=== PATIENT | female | born 1975 | race Caucasian/White ===

== ENCOUNTER → 2019-08-30 12:00 | Outpatient (BNVA) | payer SELFPAY | PROVIDERS: Family Provider Family Medicine; PCP Family Medicine; Visit Provider Nurse Practitioner Family | DX: Z01.89 Encounter for other specified special examinations (principal) | CPT/HCPCS: 87493 ==

== ENCOUNTER → 2019-09-06 10:44 | Outpatient (BNVA) | payer SELFPAY | PROVIDERS: Family Provider Family Medicine; PCP Family Medicine; Visit Provider Anesthesiology | DX: G89.29 Other chronic pain (principal); M54.2 Cervicalgia; M25.512 Pain in left shoulder; M25.551 Pain in right hip; M25.552 Pain in left hip; G43.709 Chronic migraine without aura, not intractable, without status migrainosus; F33.1 Major depressive disorder, recurrent, moderate; F41.1 Generalized anxiety disorder; Z79.891 Long term (current) use of opiate analgesic | CPT/HCPCS: 73620; 73630; 99214 ==

== ENCOUNTER 2019-09-19 12:37 | Outpatient (CLI) | payer SELFPAY ==
--- NOTE | 2019-09-19 13:00 | CT_ITS ---
WS: [id number] NONCONTRAST CT OF THE RIGHT FOOT TECHNIQUE: CT right foot with coronal and sagittal reformatted images. CLINICAL INFORMATION: LISFRANC DISLOCATION COMPARISON: None. DLP: [address] scans at [facility] use at least one of these dose optimization techniques: automat ed exposure control; mA and/or kV adjustment per patient size (includes targeted exams where dose is matched to clinical indication); or iterative reconstruction. FINDINGS: Small avulsion at the base of the first metatarsal. Additional nondisplaced fracture involving the ba se of the second metatarsal. Slightly comminuted fractures involving the medial cuneiform and interme diate cuneiform at the articulation. Lisfranc fracture dislocation with slight lateral subluxation of the second metatarsal relative to the intermediate cuneiform. Normal talus and calcaneus. Normal tibiotalar joint. Plantar calcaneal spurring. No other visualized fractures. CT/CT foot RT wo con* [id number] IMPRESSION: 1. Lisfranc fracture dislocation with slight lateral subluxation of the second metatarsal relative to the intermediate cuneiform. 2. Small avulsions at the base of the first and second metatarsals. 3. Comminuted fractures involving the medial cuneiform and intermediate cuneif orm at the articulation.
== END 2019-09-19 12:38 | disposition home or self-care (01) ==
LOC: RADWPI 12:40
PROVIDERS: Family Provider Family Medicine; PCP Family Medicine; Visit Provider Orthopaedic Surgery
DX: S92.311A Displaced fracture of first metatarsal bone, right foot, initial encounter for closed fracture (principal); S92.321A Displaced fracture of second metatarsal bone, right foot, initial encounter for closed fracture; X58.XXXA Exposure to other specified factors, initial encounter
CPT/HCPCS: 73700

== ENCOUNTER → 2019-10-25 09:56 | Outpatient (BNVA) | payer OTHER, SELFPAY | PROVIDERS: Family Provider Family Medicine; PCP Family Medicine; Visit Provider Orthopaedic Surgery | DX: S92.231A Displaced fracture of intermediate cuneiform of right foot, initial encounter for closed fracture (principal); X58.XXXA Exposure to other specified factors, initial encounter; M77.31 Calcaneal spur, right foot | CPT/HCPCS: 73630 ==

== ENCOUNTER → 2019-10-31 11:43 | Outpatient (BNVA) | payer OTHER, SELFPAY | PROVIDERS: Family Provider Family Medicine; PCP Family Medicine; Visit Provider Podiatrist Foot & Ankle Surgery | DX: S92.241A Displaced fracture of medial cuneiform of right foot, initial encounter for closed fracture (principal); X58.XXXA Exposure to other specified factors, initial encounter | CPT/HCPCS: 73620 ==

== ENCOUNTER → 2019-11-03 09:50 | Outpatient (BNVA) | payer OTHER, SELFPAY | PROVIDERS: Family Provider Family Medicine; PCP Family Medicine; Visit Provider Nurse Practitioner | DX: M54.2 Cervicalgia (principal); G43.709 Chronic migraine without aura, not intractable, without status migrainosus; Z79.891 Long term (current) use of opiate analgesic | CPT/HCPCS: 99214 ==

== ENCOUNTER → 2019-12-30 09:20 | Outpatient (BNVA) | payer MEDICARE, MEDICAID, SELFPAY | PROVIDERS: Family Provider Family Medicine; PCP Family Medicine; Visit Provider Nurse Practitioner | DX: M54.2 Cervicalgia (principal); Z79.891 Long term (current) use of opiate analgesic | CPT/HCPCS: 73630; 99213 ==

== ENCOUNTER 2020-01-20 05:47 | Day surgery (SDC) | payer MEDICARE, MEDICAID, SELFPAY ==
[2020-01-19 13:21] VITALS: BMI 44.2
[2020-01-20] VITALS (13 sets, daily range): BP systolic 104–167; BP diastolic 65–109; PULSE 70–82; RESP 12–18; TEMP 36.3–36.9; O2SAT 93–100
--- NOTE | 2020-01-20 | SCC_ITS ---
Procedure Done: Lapidus arthrodesis right footCPT code 05597. Second tarsometatarsal arthrodesis right foot CPT code 42374. 13 seconds of fluoroscopic guidance, for a cumulative dose of 0.3 mGy, was provided to Dr. Durant by the radiology department. C-arm images of the RIGHT foot were saved for the patient's permanent record. [facility]
--- NOTE | 2020-01-20 06:25 | P.HPUD_ITS ---
Surgery/Procedure H&P Update DATE OF PROCEDURE: January 20, 2020 DATE H&P PERFORMED: 12/30/19 H&P UPDATE INFORMATION: I have reviewed H&P completed within last 30 days, I have examined patient prior to procedure, No changes to prior documentation and [place] [facility] [place] PREOP DIAGNOSIS: Right Lisfranc dislocation PLANNED PROCEDURE: Operation Date: 01/20/20 07:00 Proposed Procedures p right first metatarsal cuneiform joint arthrodesis(61004)right tarsal metatarsal arthrodesis (65971)(Right) - Darvin Durant DPM
[2020-01-20] MEDS: sodium chloride 0.9% 1,000 ML 30 ML IV (06:31)
--- NOTE | 2020-01-20 06:37 | ANES.PREANE2 ---
Pre-Anesthetic Assessment Pre-Anesthetic Assessment: Height/Weight: Height 1.6 m Weight 113.398 kg Temp Pulse Resp BP Pulse Ox 98.2 F 76 18 129/78 95 01/20/20 06:00 01/20/20 06:00 01/20/20 06:00 01/20/20 06:00 01/20/20 06:00 Preop Diagnosis: Right Lisfranc dislocation Proposed Procedure: Operation Date: 01/20/20 07:00 Proposed Procedures p right first metatarsal cuneiform joint arthrodesis(42769)right tarsal metatarsal arthrodesis (57396)(Right) - Darvin Durant DPM Last intake: Intake Last Liquid Date 01/19/20 Last Liquid Time 17:00 Last Solid Date 01/19/20 Last Solid Time 20:00 Social: Social History: No alcohol and No tobacco Exam: Pre-Anes Outpt Exam: alert, oriented x 3, clear to auscultation bilaterally and regular rate & rhythm Airway: Submandibular: WNL Cervical ROM: WNL MP: 1 Dentition: Other (teeth ok) History/ROS: No significant history except as noted Pulmonary: Pulmonary: VELASQUEZ and Sleep apnea CV/HEM: CV/HEM: Arrythmia (ST) and HTN Comments: POTS : : None reported Hepatic: Comments: fatty liver GI: GI: GERD (not well controlled) Metabolic: Metabolic: DM and Morbid obesity Musc/skel: Musc/skel: OA/DJD Neuropsych: Neuropsych: Anxiety and Depression Anesthetic Plan: ASA status: 3 Anesthesia: Anesthesia Evaluation and MAC Risk of > 500 ml blood loss (7ml/kg in children): No Meds/Allergies Current Medications: Current Medications Generic Name Dose Route Start Last Admin Trade Name Freq PRN Reason Stop Dose Admin Sodium Chloride 1,000 mls @ 30 ml s/hr 01/20/20 06:30 01/20/20 06:31 Sodium Chloride 0.9% IV 01/21/20 06:29 30 mls/hr .Q24H SHIRA Administration PFSH Anesthesia PFSH: Medical History Anxiety Chiari malformation Chronic migraine Chronic pain Diabetes mellitus Encounter for long-term use of opiate analgesic Generalized anxiety disorder Hip pain, bilateral Major depressive disorder, recurrent, moderate Neck pain Opioid contract exists TMJ (dislocation of temporomandibular joint) Surgical History S/P carpal tunnel release S/P section S/P cholecystectomy 02/09/2019 [place] teeth extracted Family History Father Hypertension Grandmother Family history of premature coronary artery disease Social History Smoking and tobacco status: never smoked Alcohol intake: never Data Anesthesia Cardiac Studies: No Data to Display
[2020-01-20] MEDS: sodium chloride 0.9% 1,000 ML 100 ML IV (06:40)
[2020-01-20 07:08] LABS: OR HCG Qualitative Urine Negative (Negative)
--- NOTE | 2020-01-20 08:30 | SUR.OPER ---
Phoned via cell phone, gave update on progress of surgery
--- NOTE | 2020-01-20 09:09 | SUR.PHASEI ---
0906 PATIENT TO PACU AT THIS TIME FROM OR. ORAL AIRWAY IN PLACE. SPO2 95% ON SIMPLE MASK AT 8L. DRESSING CDI TO RIGHT FOOT WITH WALKING BOOT IN PLACE.
--- NOTE | 2020-01-20 09:14 | SUR.PHASEI ---
0914 ORAL AIRWAY REMOVED, SPO2 100% ON SIMPLE MASK AT 8L.
[2020-01-20] MEDS: fentaNYL 50 mcg/mL INJ 2mL IVP (09:23)
--- NOTE | 2020-01-20 09:29 | XRR_ITS ---
PROCEDURE INFORMATION: Exam: XR Right Foot Complete Exam date and time: 01/20/2020 9:51 AM Age: 44 years old Clinical indication: Device placement; Joint fixation hardware; Prior surgery; Surgery date: Post-operative (0-2 days); Additional info: Post op TECHNIQUE: Imaging protocol: XR Right foot. Views: 3 or more views. COMPARISON: CR XR foot RT min 3V* [id number] 12/30/2019 1:24 PM FINDINGS: Bones/joints: Fine bony detail is obscured by an overlying cast. Postoperative fusion of the 1st and 2nd tarsometatarsal joints are now present. The surgical hardware is in place and intact. There is no significant change in alignment from the preoperative exam. Mild separation of the proximal 1st and 2nd metatarsals is present. A large plantar calcaneal spur is noted. Soft tissues: Soft tissue swelling is noted. XR/XR foot RT min 3V* [id number] IMPRESSION: Postoperative changes as discussed above
--- NOTE | 2020-01-20 09:30 | P.OP_ITS ---
Operative Report Date of procedure: January 20, 2020 Pre-op Diagnosis: Right Lisfranc dislocation Post-op diagnosis: same Procedure Done: Lapidus arthrodesis right footCPT code 00280. Second tarsometatarsal arthrodesis right foot CPT code 87923. Implants: [place] 28 Lapidus plate, 3.5 millimeter screws, 4.0 headless compression screw, clover plate and 2.7 millimeter screws Specimens removed/disposition: None Pathology: none sent Surgeon: Darvin Durant D.P.M. Anesthesia: General Estimated blood loss: 5 mL Tourniquet time: See intraoperative documentation. IV fluids: None Urine output: None Complications: None Findings: Instability at the right first tarsometatarsal joints. Condition: stable Disposition: PACU Procedure: Under mild sedation the patient was brought to the operating room and placed on the operating table in supine position. A timeout was performed. Anesthesia was administered by the anesthesia service. Local anesthesia was injected by myself 30 cc of 0.5% Marcaine plain and a right ankle block fashion. Well-padded pneumatic tourniquet applied to the high calf right lower extremity. Right lower extremity was scrubbed, prepped and draped utilizing normal aseptic technique. Right foot was then examined a weighted with an Esmarch bandage and the tourniquet was inflated to 250 mmHg. Attention was directed to the right forefoot where a linear longitudinal incision was made medial and parallel to the extensor hallucis longus tendon at the level of the first metatarsal base and medial cuneiform articulation. Dissection was carried down through skin and subcutaneous tissue utilizing a combination of blunt and sharp technique. Care was taken to retract and preserve neurovascular tendinous structures. Bleeders were ligated and cauterized as necessary. A periosteal incision was made in the first metatarsal medial cuneiform joint was identified and freed of its soft tissue and capsular attachments. Joint was distracted utilizing Steinmann pins and intermittent self-retaining retractor, utilizing a power bur the distal articular surface of the medial cuneiform and the base of the first metatarsal were denuded of all articular surface this was flushed with saline solution. Subchondral drilling performed with a subchondral drill bit, self-retaining distractor and pins removed first metatarsal base was reduced and compressed at the arthrodesis site temporarily fixated with a 045 K wire. Next utilizing standard AO technique a 4.0 headless partially-threaded cannulated screw was inserted from dorsal distal to proximal medial with care not to cross the talonavicular joint. Placement was confirmed with intraoperative fluoroscopy and 3 planes noted to be excellent. Utilizing standard AO technique a locking plate was fixated at the dorsal medial aspect of the arthrodesis site utilizing a combination of locking and nonlocking screws with excellent bony apposition and compression noted placement confirmed with intraoperative fluoroscopy. This incision site was flushed with saline solution. Periosteal structures were reapproximated utilizing 2-0 Vicryl. Subcutaneous tissue reapproximated utilizing 4-0 Vicryl. Attention was then directed to the dorsum of the right foot where a linear longitudinal incision was made directly over the intermediate cuneiform and second metatarsal. Incision was approximately 10 cm in length performed with a #15 blade with dissection carried down through subcutaneous tissue utilizing sharp and blunt technique. Care was taken to retract and preserve neurovascular and tendinous structures. All bleeders were ligated and cauterized as necessary. The articulation of the second metatarsal base was identified there is fibrosing and excessive fibrotic tissue and instability appreciated. This was removed utilizing a bone rongure dorsally. Self-retaining distractor was Steinmann pins utilized to distract the second metatarsal intercuneiform joint which was then prepared with denuding of all articular surface and subchondral drilling with 2.0 wire pass drill bit. Joint was then compressed and a dorsal plate provided by Shanelle Disla was utilized with 2 screws proximal and the intercuneiform bone and 3 screws distal to the arthrodesis site and the second metatarsal with excellent bony apposition and compression noted positioning confirmed with intraoperative fluoroscopy noted to be excellent in all 3 planes. Stable construct appreciated at the first and second ray of the right foot. Dorsal incision was flushed with saline solution. Periosteum was reapproximated utilizing 2-0 Vicryl. Subcutaneous tissue reapproximated utilizing 4-0 Vicryl Exparel 10 cc expanded to 20 cc utilizing 0.5% Marcaine plain was injected per redevelopment manager recommendation and technique diffusely in a grid pattern at the level of the subcutaneous tissue on both incisions medially and laterally.Skin was then reapproximated utilizing 4-0 nylon in a running interlocking fashion. Incision site was dressed with Adaptic, sterile 4 x 4's, Unna boot, additional 4 x 4's, Kerlix and 4 and 6 inch Sam wrap. Cam boot was applied. Tourniquet was deflated and a prompt hyperemic response was noted to the distal digits of the right lower extremity. Patient tolerated the procedure well and was transferred to the PACU with vital signs stable and vascular status intact following a period of postoperative monitoring she will be discharged home. She is to remain strict nonweightbearing to the right foot. She is to elevate her right foot at all times while at rest. She is provided with pain medication and this is Percocet 10/325 mg to be taken judiciously as needed every 6 hours for pain. She does have a contract with pain management they were notified of the discontinuation of her hydrocodone for 2 weeks postoperatively for which I will manage with Percocet she will return to her baseline pain regimen within 2 weeks postop.
--- NOTE | 2020-01-20 09:52 | SUR.PHASEI ---
0949 PATIENT TO OPS AT THIS TIME. NO DISTRESS. RIGHT FOOT ELEVATED FOR COMFORT.
== END 2020-01-20 10:24 | disposition home or self-care (01) ==
PROVIDERS: PCP Family Medicine; Visit Provider Podiatrist Foot & Ankle Surgery
PROC: (CPT 28740; principal; 2020-01-20 07:00)
DX: S93.324A Dislocation of tarsometatarsal joint of right foot, initial encounter (principal); X58.XXXA Exposure to other specified factors, initial encounter; G47.30 Sleep apnea, unspecified; I10 Essential (primary) hypertension; E11.9 Type 2 diabetes mellitus without complications; E66.01 Morbid (severe) obesity due to excess calories; Z68.41 Body mass index [BMI] 40.0-44.9, adult; M19.90 Unspecified osteoarthritis, unspecified site; F41.9 Anxiety disorder, unspecified; F33.9 Major depressive disorder, recurrent, unspecified; Z79.891 Long term (current) use of opiate analgesic
CPT/HCPCS: 28297; 28615; 12345; 29580; 73630; 76000; 81025; 84703; C1713; C9290; J0330; J0690; J2001; J2250; J2405; J2704; J2710; J3010; J3490; J7030

== ENCOUNTER → 2020-02-02 15:11 | Outpatient (BNVA) | payer MEDICARE, MEDICAID, SELFPAY | PROVIDERS: PCP Family Medicine; Visit Provider Podiatrist Foot & Ankle Surgery | DX: Z98.890 Other specified postprocedural states (principal) | CPT/HCPCS: 73630 ==

== ENCOUNTER 2020-02-25 07:56 | Emergency (ER) | payer MEDICARE, MEDICAID, SELFPAY ==
[2020-02-25 07:57] VITALS: BMI 44.2
--- NOTE | 2020-02-25 08:00 | XRR_ITS ---
PROCEDURE INFORMATION: Exam: XR Chest, 1 View Exam date and time: 02/25/2020 8:01 AM Age: 44 years old Clinical indication: Pain; Other: Dyspnea / cough; Additional info: Dyspnea/cough TECHNIQUE: Imaging protocol: XR of the chest Views: 1 view. COMPARISON: CR Chest 1 [place] [id number] 12/21/2017 10:44 AM FINDINGS: Lungs: Unremarkable. No consolidation. Pleural space: Unremarkable. No pleural effusion. No pneumothorax. Heart/Mediastinum: Unremarkable. No cardiomegaly. Bones/joints: Unremarkable. XR/XR chest 1V portable [id number] IMPRESSION: No acute findings.
[2020-02-25 08:02] VITALS: BP 128/87; PULSE 89; RESP 20; TEMP 37.1; O2SAT 96
--- NOTE | 2020-02-25 08:10 | W.ED.ABDPA2 ---
HPI - Abdominal Pain General: Chief Complaint: Abdominal Pain Stated Complaint: RIGHT LOWER ABD PAIN Time Seen by Provider: 02/25/20 08:00 History of Present Illness: HPI narrative: 44 yo female present with abd pain. She is complaining of diarrhea with a fever of the right upper quadrant abdominal pain that radiates into the back and side. States it is better with pressure when she wears a heating pad. Is worse if she eats bland foods do seem to be tolerated better appetite is been poor. She has had this intermittently for 6 months or more it seems to flareup every few months she is previously had a cholecystectomy had talked about doing endoscopy on her she is in one time when she had it she had a CT done and was told she had diverticulitis. She has not seen gastroenterology in talking to her it does not sound like she has had an MRCP to evaluate for sphincter of Oddi disease. She denies any other symptoms at this time is not had any respiratory symptoms has not been any around anyone exposed to COVID that she is aware of. MD elicited complaint: abdominal pain Pertinent past history: diverticulitis and other (Previous cholecystectomy) Onset (ago): day(s) Pain Consistency: constant Location: RUQ (The nurses triage noted identifies right lower quadrant pain but when asked the patient to identify the pain localize it she refers to the right upper quadrant.) Severity: severe Quality: cramping Radiation: R flank Migration to: no migration Exacerbating factors: eating Relieving factors: medication and rest Context: recent surgery/procedure (Recent cholecystectomy within the last few years) and history of similar episodes Associated Symptoms: Reports anorexia, diarrhea, nausea, poor appetite and vomiting; Denies chills, fever(s), hematochezia, hematuria, hematemesis, fecal incontinence and melena Related Data: Date of Last Menstrual Period: 01/16/20 Review of Systems Const: Denies: fever(s), chills, body aches, change in appetite, fatigue or malaise ENMT: Denies: throat pain, ear or mastoid pain, nasal discharge or nasal congestion Card: Denies: chest pain, edema, dyspnea on exertion or orthopnea Resp: Denies: dyspnea, productive cough or non-productive cough GI: Reports: nausea, vomiting and diarrhea; Denies: hematemesis, fecal incontinence, hematochezia or melena : Denies: hematuria Skin/Breast: Denies: rash or pruritus PFSH ED PFSH: Medical History Anxiety Chiari malformation Chronic migraine Chronic pain Diabetes mellitus Encounter for long-term use of opiate analgesic Generalized anxiety disorder Hip pain, bilateral Major depressive disorder, recurrent, moderate Neck pain Opioid contract exists TMJ (dislocation of temporomandibular joint) Surgical History S/P carpal tunnel release S/P section S/P cholecystectomy 02/09/2019 [place] teeth extracted Family History Father Hypertension Grandmother Family history of premature coronary artery disease Social History Smoking and tobacco status: never smoked Alcohol intake: never Female Reproductive History: Date of last menstrual period: 01/16/20 Physical Exam Const: COMMON NORMALS: no acute distress GENERAL APPEARANCE: cooperative and comfortable ORIENTATION/CONSCIOUSNESS: Yes awake, Yes oriented to person, Yes oriented to place and Yes oriented to time HENMT: COMMON NORMALS: normocephalic, atraumatic, hearing grossly normal bilaterally, external ears normal, EAC's normal, TM's normal bilaterally, Normal nasal mucous membranes and turbinates present, moist oral mucous membranes and oropharynx normal HEAD & SCALP: normocephalic and atraumatic NOSE: Normal nasal mucous membranes and turbinates present EXTERNAL EAR: Yes external ears normal EXTERNAL AUDITORY CANAL: EAC's normal TYMPANIC MEMBRANE: TM's normal bilaterally Eye: COMMON NORMALS: Equal, round and reactive pupils present, EOMs intact bilaterally, conjunctivae normal and no scleral icterus CONJUNCTIVA: Yes conjunctivae normal PUPIL: Yes Equal, round and reactive pupils present Neck/C-Spine: COMMON NORMALS: full ROM, no lymphadenopathy, supple and no JVD Lymph: LYMPHATIC: no lymphadenopathy noted and no lymphedema noted Resp: COMMON NORMALS: normal respiratory effort, No retractions, No use of accessory muscles and clear to auscultation bilaterally AUSCULTATION: clear to auscultation bilaterally Cardio: COMMON NORMALS: no JVD, regular rate, regular rhythm and No murmurs present (Cardio) RATE: regular rate RHYTHM: regular rhythm GI: COMMON NORMALS: No hepatosplenomegaly present AUSCULTATION: Yes normoactive bowel sounds PALPATION: Yes Tenderness to palpation present (GI) Details: RUQ, No Guarding due to palpation present (GI) and Yes No hepatosplenomegaly present Extremity: COMMON NORMALS: normal to inspection, capillary refill normal, no clubbing, cyanosis or edema, no calf tenderness and no pedal edema Neuro: SENSORIUM/ORIENTATION: Yes oriented to person, Yes oriented to place and Yes oriented to time Skin: COMMON NORMALS: no rashes or lesions noted GENERAL SKIN EXAM: no rashes or lesions noted Course Vital Signs: Vital signs: Vital Signs Temperature 98.8 F 02/25/20 08:02 Pulse Rate 74 02/25/20 12:33 Respiratory Rate 20 H 02/25/20 08:02 Blood Pressure 103/77 02/25/20 12:33 Pulse Oximetry 99 02/25/20 12:33 MDM - Abdominal Pain MDM Narrative: Medical decision making narrative: I suspect she may have sphincter of Oddi disease she continues to have biliary-like colic symptoms despite having cholecystectomy. A cholecystectomy was based on abnormal HIDA scan. Discussed this with her she may need further imaging or evaluation. For now we will treat her symptoms bland diet 24 hours to 48 hours of clear liquid diet and then slowly advance follow-up with her primary care doctor Lab Data: Labs: Lab Results 02/25/20 02/25/20 02/25/20 Range/Units 08:45 08:45 08:45 WBC 4.9 (4.0-10.0) 10^3/ uL RBC 4.25 (4.1-5.3) 10^6/u L Hgb 12.1 (11.5-15.3) g/dL Hct 37.3 (37.0-47.0) % MCV 87.8 (81-99) fL MCH 28.5 (28.0-34.0) pg MCHC 32.4 (30.0-36.0) g/dL RDW 13.2 (12.1-15.1) % Plt Count 154 (130-400) 10^3/c mm MPV 10.9 H (7.4-10.4) fL Neut % (Auto) 57.7 % Lymph % (Auto) 33.2 % Nicol[place] % (Auto) 6.9 % Eos % (Auto) 1.2 % Baso % (Auto) 1.0 % Neut # (Auto) 2.9 (1.8-7.7) 10^3/u L Lymph # (Auto) 1.6 (0.8-4.8) 10^3/u L [place] # (Auto) 0.3 (0.2-0.9) 10^3/u L Eos # (Auto) 0.1 (0.0-0.8) 10^3/u L Baso # (Auto) 0.1 (0.0-0.1) 10^3/u L Nucleated RBC % (a uto) 0 % Nucleated RBCs # 0.0 /100WBC Sodium 135 L (136-145) mmol/L Potassium 4.0 (3.5-5.1) mmol/L Chloride 102 (98-107) mmol/L Carbon Dioxide 21 L (22-29) mmol/L Anion Gap 16.0 (5-19) BUN 9 (6-20) mg/dL Creatinine 0.8 (0.5-0.9) mg/dL GFR Calculation 77.6 L (90-130) mL/min Glucose 132 H (65-115) mg/dL Calculated Osmolal ity 278 L (285-295) mOsm/k g Lactate 1.9 (0.5-2.2) mmol/L Calcium 9.4 (8.5-10.5) mg/dL Total Bilirubin 0.2 (0.15-1.2) mg/dL AST 20 (0-32) U/L ALT 17 (0-33) U/L Alkaline Phosphata se 53 (35-105) IU/L Total Protein 7.3 (6.6-8.7) g/dL Albumin 4.4 (3.5-5.2) g/dL Globulin 2.9 (1.3-4.6) g/dL Lipase 52 (13-60) U/L Urine Color (Yellow) Urine Appearance (CLEAR) Urine pH (5-7) Ur Specific Gravit y (1.005-1.030) Urine Protein (Negative) Urine Glucose (UA) (Normal) Urine Ketones (Negative) Urine Blood (Negative) Urine Nitrate (Negative) Urine Bilirubin (NEGATIVE) Urine Urobilinogen (Negative) mg/dL Ur Leukocyte Dionne ase (Negative) 02/25/20 Range/Units 10:04 WBC (4.0-10.0) 10^3/ uL RBC (4.1-5.3) 10^6/u L Hgb (11.5-15.3) g/dL Hct (37.0-47.0) % MCV (81-99) fL MCH (28.0-34.0) pg MCHC (30.0-36.0) g/dL RDW (12.1-15.1) % Plt Count (130-400) 10^3/c mm MPV (7.4-10.4) fL Neut % (Auto) % Lymph % (Auto) % [place] % (Auto) % Eos % (Auto) % Baso % (Auto) % Neut # (Auto) (1.8-7.7) 10^3/u L Lymph # (Auto) (0.8-4.8) 10^3/u L [place] # (Auto) (0.2-0.9) 10^3/u L Eos # (Auto) (0.0-0.8) 10^3/u L Baso # (Auto) (0.0-0.1) 10^3/u L Nucleated RBC % (a uto) % Nucleated RBCs # /100WBC Sodium (136-145) mmol/L Potassium (3.5-5.1) mmol/L Chloride (98-107) mmol/L Carbon Dioxide (22-29) mmol/L Anion Gap (5-19) BUN (6-20) mg/dL Creatinine (0.5-0.9) mg/dL GFR Calculation (90-130) mL/min Glucose (65-115) mg/dL Calculated Osmolal ity (285-295) mOsm/k g Lactate (0.5-2.2) mmol/L Calcium (8.5-10.5) mg/dL Total Bilirubin (0.15-1.2) mg/dL AST (0-32) U/L ALT (0-33) U/L Alkaline Phosphata se (35-105) IU/L Total Protein (6.6-8.7) g/dL Albumin (3.5-5.2) g/dL Globulin (1.3-4.6) g/dL Lipase (13-60) U/L Urine Color Straw (Yellow) Urine Appearance Clear (CLEAR) Urine pH 5 (5-7) Ur Specific Gravit y 1.005 (1.005-1.030) Urine Protein Neg (Negative) Urine Glucose (UA) Norm (Normal) Urine Ketones Negative (Negative) Urine Blood Neg (Negative) Urine Nitrate Negative (Negative) Urine Bilirubin Neg (NEGATIVE) Urine Urobilinogen Norm (Negative) mg/dL Ur Leukocyte Dionne ase Negative (Negative) Discharge Plan Discharge Patient Disposition: Home, Self-Care Clinical Impression: Abdominal pain Condition: Stable Prescriptions: New hydrocodone-acetaminophen 5-325 mg tablet 1 tab PO Q6H PRN (Reason: pain) Qty: 20 RF: 0 Zofran 4 mg tablet 4 mg PO Q6H PRN (Reason: nausea and vomiting) Qty: 20 RF: 0 No Action buspirone 15 mg tablet 15 mg PO BID PRN (Reason: anxiety) 30 Days Qty: 60 RF: 1 gabapentin 800 mg tablet 800 mg PO Q6H 30 Days Qty: 120 RF: 1 cyclobenzaprine 10 mg tablet 20 mg PO BID PRN (Reason: muscle spasm) Qty: 120 RF: 4 morphine 15 mg tablet extended release 15 mg PO Q12H 30 Days Qty: 60 RF: 0 metoprolol succinate 50 mg tablet extended release 24 hr 50 mg PO BID RF: 0 nystatin 100,000 unit/gram cream 1 applic TOPICAL BID RF: 0 rizatriptan 10 mg tablet 10 mg PO DAILY PRN (Reason: Migraine Headache) RF: 0 cranberry extract 200 mg capsule 200 mg PO DAILY RF: 0 acetaminophen 500 mg capsule 500 mg PO Q4H PRN (Reason: Pain) RF: 0 chlorpheniramine maleate [Allergy (chlorpheniramine)] 4 mg tablet 4 mg PO DAILY RF: 0 melatonin 3 mg capsule 3 mg PO BEDTIME PRN (Reason: Insomnia) RF: 0 ondansetron HCl 4 mg tablet 4 mg PO Q6H PRN (Reason: Nausea) RF: 0 sertraline 100 mg tablet 200 mg PO BEDTIME RF: 0 Wellbutrin XL 300 mg tablet extended release 24 hr 300 mg PO QPM RF: 0 hydrocodone-acetaminophen 10-325 mg Tablet 1 tab PO Q6H PRN (Reason: Pain) RF: 0 Discharge Orders: Discharge Order (Routine); Ordered 02/25/20 Ordered By: Albert Ivey Patient Instructions: Abdominal Pain (ED) Activity Restrictions/Additional Instructions: Follow-up with your primary care doctor for further evaluation including ERCP or MRCP or consult with GI may be warranted. Can return if you have worsening symptoms. Discharge Date/Time: 02/25/20 12:33 Coding Level of Care Code ED Promotions Assistant for Chg Fwd Exam Comprehensive
--- NOTE | 2020-02-25 08:15 | CTR_ITS ---
PROCEDURE INFORMATION: Exam: CT Abdomen And Pelvis With Contrast Exam date and time: 02/25/2020 8:16 AM Age: 44 years old Clinical indication: Abdominal pain; Acute; Prior surgery; Surgery date: 6+ months; Surgery type: Gb; Patient HX: RT lower abd pain x 1 wk TECHNIQUE: Imaging protocol: Computed tomography of the abdomen and pelvis with intravenous contrast. Radiation optimization: All CT scans at this facility use at least one of these dose optimization techniques: automated exposure control; mA and/or kV adjustment per patient size (includes targeted exams where dose is matched to clinical indication); or iterative reconstruction. Contrast material: OMNI; Contrast volume: 95 ml; Contrast route: INTRAVENOUS (IV); COMPARISON: CT abdomen pelvis w con* [id number] 08/04/2019 7:23 AM RADIATION DOSE METRICS: Total DLP (mGy-cm): 1975.67 FINDINGS: Lungs: visualized portions of the lung bases normal. Liver: Normal. No mass. Gallbladder and bile ducts: Normal. No calcified stones. No ductal dilation. Pancreas: Normal. No ductal dilation. Spleen: Normal. No splenomegaly. Adrenals: Normal. No mass. Kidneys and ureters: Normal. No hydronephrosis. Stomach and bowel: Moderate amount stool within the large bowel. Appendix: No evidence of appendicitis. Intraperitoneal space: No free fluid within the pelvis or within the dependent portions of the peritoneum. Vasculature: Unremarkable. No abdominal aortic aneurysm. Lymph nodes: Unremarkable. No enlarged lymph nodes. Bladder: Unremarkable as visualized. Reproductive: Unremarkable as visualized. Bones/joints: osseous structures are unremarkable other than mild degenerative disk disease. No fracture. Soft tissues: Unremarkable. Other findings: No acute intra-abdominal process. No inflammatory process. No obstruction. CT/CT abdomen pelvis w con* [id number] IMPRESSION: 1. No acute intra-abdominal process. No inflammatory process. No obstruction. 2. No free fluid within the pelvis or within the dependent portions of the peritoneum. Radiation Dose CTDIVOL = (mGy): DLP = 1975.67 (mGy-cm)
[2020-02-25 08:36] VITALS: O2SAT 96
[2020-02-25] MEDS: morphine 4 mg/mL SDV 1 mL IVP (08:51)
[2020-02-25] MEDS: ondansetron 2 mg/ML SDV 2 mL 4 MG IVP (08:51)
[2020-02-25] MEDS: sodium chloride 0.9% 1,000 ML 999 ML IV (08:52)
[2020-02-25 09:05] LABS: Basophils # 0.1 10^3/uL (0.0-0.1); Eosinophils # 0.1 10^3/uL (0.0-0.8); Eosinophils % 1.2 %; Hematocrit 37.3 % (37.0-47.0); Hemoglobin 12.1 g/dL (11.5-15.3); Lymphocytes # 1.6 10^3/uL (0.8-4.8); Lymphocytes % 33.2 %; Mean Corpuscular HGB Conc 32.4 g/dL (30.0-36.0); Mean Corpuscular Hemoglobin 28.5 pg (28.0-34.0); Mean Corpuscular Volume 87.8 fL (81-99); Mean Platelet Volume 10.9 fL (7.4-10.4); Monocytes # 0.3 10^3/uL (0.2-0.9); Monocytes % 6.9 %; Neutrophils # 2.9 10^3/uL (1.8-7.7); Neutrophils % 57.7 %; Nucleated Red Blood Cells % 0 %; Platelet Count 154 10^3/cmm (130-400); Red Blood Count 4.25 10^6/uL (4.1-5.3); Red Cell Distribution Width 13.2 % (12.1-15.1); White Blood Count 4.9 10^3/uL (4.0-10.0)
--- NOTE | 2020-02-25 09:12 | PC.NURSE ---
pt to CT by stretcher with tech
[2020-02-25 09:26] LABS: Lactate (Lactic Acid level) 1.9 mmol/L (0.5-2.2)
[2020-02-25 09:27] LABS: Alanine Aminotransferase 17 U/L (0-33); Albumin Level 4.4 g/dL (3.5-5.2); Alkaline Phosphatase 53 IU/L (35-105); Aspartate Amino Transferase 20 U/L (0-32); Blood Urea Nitrogen 9 mg/dL (6-20); Calcium 9.4 mg/dL (8.5-10.5); Carbon Dioxide 21 mmol/L (22-29); Chloride 102 mmol/L (98-107); Creatinine Clr Calc Pharmacy 107.6655; Globulin 2.9 g/dL (1.3-4.6); Glomerular Filtration Rate 77.6 mL/min (90-130); Glucose 132 mg/dL (65-115); Lipase 52 U/L (13-60); Osmolality Calculated 278 mOsm/kg (285-295); Sodium 135 mmol/L (136-145); Total Bilirubin 0.2 mg/dL (0.15-1.2); Total Protein 7.3 g/dL (6.6-8.7)
[2020-02-25 10:00] VITALS: BP 109/79; PULSE 82; O2SAT 98
[2020-02-25 10:50] LABS: Add Urine Microscopic? NO
[2020-02-25 11:25] LABS: Bilirubin Urine Neg (NEGATIVE); Blood Urine Neg (Negative); Glucose Urine UA Norm (Normal); Ketones Urine Negative (Negative); Leukocyte Esterase Urine Negative (Negative); Nitrate Urine Negative (Negative); Protein Urine Neg (Negative); Specific Gravity, Urine 1.005 (1.005-1.030); Urine Appearance Clear (CLEAR); Urine Color Straw (Yellow); Urobilinogen Urine Norm (Negative); pH Urine 5 (5-7)
[2020-02-25 12:33] VITALS: BP 103/77; PULSE 74; O2SAT 99
[2020-02-25] MEDS: iohexol 300 mg/mL 100 mL Btl IV (12:53)
== END 2020-02-25 12:33 | disposition home or self-care (01) ==
PROVIDERS: Emergency Provider Family Medicine
DX: R10.9 Unspecified abdominal pain (principal); E11.9 Type 2 diabetes mellitus without complications
CPT/HCPCS: 12345; 71045; 74177; 80053; 81003; 83605; 83690; 85025; 96361; 96374; 96375; 99283; 99284; J2270; J2405; J7030; Q9967

== ENCOUNTER → 2020-02-27 10:05 | Outpatient (BNVA) | payer MEDICARE, MEDICAID, SELFPAY | PROVIDERS: Visit Provider Podiatrist Foot & Ankle Surgery | DX: Z98.1 Arthrodesis status (principal); M19.071 Primary osteoarthritis, right ankle and foot | CPT/HCPCS: 73630 ==

== ENCOUNTER → 2020-03-12 11:33 | Outpatient (BNVA) | payer MEDICARE, MEDICAID, SELFPAY | PROVIDERS: Visit Provider Podiatrist Foot & Ankle Surgery | DX: S93.324D Dislocation of tarsometatarsal joint of right foot, subsequent encounter; Z98.890 Other specified postprocedural states; W10.8XXD Fall (on) (from) other stairs and steps, subsequent encounter | CPT/HCPCS: 73630 ==

== ENCOUNTER → 2020-03-13 10:15 | Outpatient (BNVA) | payer MEDICARE, MEDICAID, SELFPAY | PROVIDERS: Family Provider Family Medicine; PCP Family Medicine; Visit Provider Anesthesiology | DX: G89.29 Other chronic pain (principal); M54.2 Cervicalgia; R10.11 Right upper quadrant pain; Z79.891 Long term (current) use of opiate analgesic | CPT/HCPCS: 99213; 99214 ==

== ENCOUNTER → 2020-03-16 07:56 | Outpatient (BNVA) | payer MEDICARE, MEDICAID, SELFPAY | PROVIDERS: Family Provider Family Medicine; PCP Family Medicine; Visit Provider Nurse Practitioner | DX: F33.1 Major depressive disorder, recurrent, moderate (principal); F41.1 Generalized anxiety disorder | CPT/HCPCS: 99213 ==

== ENCOUNTER → 2020-03-26 13:43 | Outpatient (BNVA) | payer MEDICARE, MEDICAID, SELFPAY | PROVIDERS: Family Provider Family Medicine; PCP Family Medicine; Visit Provider Podiatrist Foot & Ankle Surgery | DX: S93.324A Dislocation of tarsometatarsal joint of right foot, initial encounter (principal); Z48.89 Encounter for other specified surgical aftercare; X58.XXXA Exposure to other specified factors, initial encounter | CPT/HCPCS: 73630 ==

== ENCOUNTER → 2020-04-26 14:02 | Outpatient (BNVA) | payer MEDICARE, MEDICAID, SELFPAY | PROVIDERS: Family Provider Family Medicine; PCP Family Medicine; Visit Provider Nurse Practitioner Family | DX: J06.9 Acute upper respiratory infection, unspecified (principal); R05 Cough; Z20.818 Contact with and (suspected) exposure to other bacterial communicable diseases | CPT/HCPCS: 87635 ==

== ENCOUNTER 2020-05-03 09:35 | Emergency (ER) | payer MEDICARE, MEDICAID, SELFPAY ==
[2020-05-03] VITALS (49 sets, daily range): BP systolic 113–217; BP diastolic 74–117; PULSE 94–134; RESP 16–35; O2SAT 22–100; BMI 44.2
--- NOTE | 2020-05-03 09:51 | XR_ITS ---
WS: [id number] Portable AP semiupright chest, 05/03/2020 Clinical Data: dyspnea Comparison: Portable chest, 02/25/2020. Findings: No nodules, masses or effusions are seen. The heart is normal. The pulmonary vascularity is not increased. No pneumothorax is seen. A resuscitation paddle overlies the right chest obscuring d etail. Patchy peripheral opacities are seen. Monitor leads are on the chest wall. XR/XR chest 1V portable [id number] Impression: Patchy peripheral opacities which could represent pneumonia.
--- NOTE | 2020-05-03 09:51 | CT_ITS ---
WS: [id number] CTA OF THE CHEST WITH PULMONARY EMBOLISM PROTOCOL TECHNIQUE: High-resolution contrast enhanced CTA of the chest with coronal and sagittal reformatted i sharons with pulmonary embolism protocol. MIP images are also reviewed. CLINICAL INFORMATION: dyspnea, chest pain COMPARISON: None. DLP: 535.[address] scans at [facility] use at least one of these dose optimization techniques: automat ed exposure control; mA and/or kV adjustment per patient size (includes targeted exams where dose is matched to clinical indication); or iterative reconstruction. FINDINGS: Proximal main pulmonary arteries are normal. No evidence of pulmonary embolus. Segmental and subsegme ntal pulmonary arteries appear patent. No mediastinal or hilar lymphadenopathy. Normal thyroid gland. No axillary lymphadenopathy. Prior cholecystectomy. Diffuse bilateral groundglass infiltrates in a perihilar and subpleural distribution suspicious for v iral pneumonia. No focal consolidation or pleural fluid. Thoracic curve. CT/CT angio chest PE protcl [id number] IMPRESSION: 1. No evidence for pulmonary embolus. 2. Diffuse hazy groundglass infiltrates in a perihilar and subpleural distribu tion suspicious for viral pneumonia. 3. No mediastinal or hilar lymphadenopathy. 4. No significant pleural fluid. Attempted notification Albert Ivey DO at 05/03/2020 10:49 AM.
--- NOTE | 2020-05-03 09:53 | ECG_ITS ---
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 Measurements Intervals [place] Rate: 104 P: 35 NH: 184 QRS: 36 QRSD: 78 T: 3 QT: 370 QTc: 487 Interpretive Statements SINUS TACHYCARDIA POSSIBLE LEFT ATRIAL ENLARGEMENT [-0.1mV P WAVE IN V1/V2] LOW QRS VOLTAGE IN PRECORDIAL LEADS [QRS DEFLECTION < 1.0 mV IN CHEST LEADS] NONSPECIFIC ST & T-WAVE ABNORMALITY ABNORMAL RHYTHM ECG Compared to ECG 12/21/2017 13:50:55 Low QRS voltage now present Sinus rhythm no longer present Possible ischemia no longer present T-wave abnormality still present Electronically Signed On 05-03-2020 20:21:09 CDT by Kasey Bolivar M.D. [id number]
[2020-05-03 10:01] LABS: ABG PH Result 7.39 (7.35-7.45); Arterial Blood Gas Hematocrit 34.9 % (37-47); Blood Gas Allen Test Pos; Blood Gas Operator Identificat CAK; Blood Gas Sample Site Brachial, left; Blood Gas Sample Type Arterial; HCO3 ABG 21.6 mmol/L (22-26); PO2 ABG 62.6 mmHg (80.0-100.0)
[2020-05-03 10:02] LABS: Oxygen Device NC
[2020-05-03] MEDS: albuterol 8 gm MDI 2 PUFF INHALATION (10:17)
[2020-05-03] MEDS: iohexol 350 mg/mL 100 mL Btl IV (10:21)
--- NOTE | 2020-05-03 10:30 | ED_ITS ---
HPI - SOB/Dyspnea General: Chief Complaint: Shortness of Breath/Dyspnea Stated Complaint: ABDOMINAL PAIN/ COVID POSITIVE Time Seen by Provider: 05/03/20 09:51 History of Present Illness: HPI Narrative: 44-year-old female comes in she was tested positive for COVID last week and is now having increasing shortness of breath she has a history of previous PEs. She has diarrhea and severe myalgias including back pain. PE previously was provoked she was on anticoagulants for 6 months and then it was stopped. Associated symptoms: Reports fever(s), nausea and vomiting; Deny abdominal pain, chest pain or orthopnea Review of Systems Const: Reports: fever(s), chills, body aches, change in appetite, fatigue and malaise ENMT: Reports: nasal discharge and nasal congestion; Denies: throat pain or ear or mastoid pain Card: Denies: chest pain, edema, dyspnea on exertion or orthopnea Resp: Reports: dyspnea and non-productive cough; Denies: productive cough GI: Reports: nausea, vomiting, diarrhea and bloating; Denies: abdominal pain, hematemesis, coffee ground emesis, constipation, hematochezia or melena : Denies: flank pain, difficulty voiding, dysuria, urinary frequency or urinary urgency Skin/Breast: Denies: rash or pruritus PFSH ED PFSH: Medical History Anxiety Chiari malformation Chronic migraine Chronic pain Diabetes mellitus Encounter for long-term use of opiate analgesic Generalized anxiety disorder Hip pain, bilateral Major depressive disorder, recurrent, moderate Neck pain Opioid contract exists TMJ (dislocation of temporomandibular joint) Surgical History S/P carpal tunnel release S/P section S/P cholecystectomy 02/09/2019 [place] teeth extracted Family History Father Hypertension Grandmother Family history of premature coronary artery disease Social History Smoking and tobacco status: never smoked Alcohol intake: never History of recent travel: No Female Reproductive History: Date of last menstrual period: 01/16/20 Physical Exam Const: ORIENTATION/CONSCIOUSNESS: Yes awake HENMT: COMMON NORMALS: normocephalic HEAD & SCALP: normocephalic Neck/C-Spine: COMMON NORMALS: no JVD Resp: COMMON NORMALS: normal respiratory effort, No retractions, No use of accessory muscles and clear to auscultation bilaterally AUSCULTATION: clear to auscultation bilaterally Cardio: COMMON NORMALS: no JVD, regular rate, regular rhythm and No murmurs present (Cardio) RATE: regular rate RHYTHM: regular rhythm GI: COMMON NORMALS: Soft to palpation and No hepatosplenomegaly present AUSCULTATION: Yes normoactive bowel sounds PALPATION: Yes Soft to palpation, No Tenderness to palpation present (GI), No Guarding due to palpation present (GI) and Yes No hepatosplenomegaly present Extremity: COMMON NORMALS: normal to inspection, capillary refill normal, no clubbing, cyanosis or edema, no calf tenderness and no pedal edema Skin: COMMON NORMALS: no rashes or lesions noted GENERAL SKIN EXAM: no rashes or lesions noted Procedures Intubation Time out performed: Yes sedative: Etomidate paralytic: Succinylcholine Laryngoscope: fiber optic video scope Assist Device Used: fiber optic device ET Tube Size: 8.5 ET Tube Uncuffed: No Tube Secured Depth (cm): 24 Tube Placement Confirmation: visualized tube passing through cords, equal breath sounds bilaterally, no breath sounds over epigastrium and confirmation by capnometry Course Vital Signs: Vital signs: Vital Signs Pulse Rate 126 H 05/03/20 15:35 Respiratory Rate 16 05/03/20 15:35 Blood Pressure 160/99 05/03/20 15:35 Pulse Oximetry 100 05/03/20 15:45 MDM - SOB/Dyspnea MDM Narrative: Medical decision making narrative: Patient's breathing progressively worsened shortly after arrival to the point where she was barely maintaining sats on high flow oxygen she was going to require transferpatient was not able to sustain sats on high flow oxygen. She was going to require transfer to COVID unit at [facility] in [place] is decided it would be much safer and beneficial for the patient to intubate her. As she was progressively worsening to the point of achieving respiratory failure she was intubated after discussion with her she was agreeable expressed understanding of what we are asking. Intubated successfully first attempt without difficulty patient will be transferred to [facility] for COVID unit was given room does severe on Decadron here. Lab Data: Labs: Lab Results 05/03/20 05/03/20 05/03/20 Range/Units 09:50 10:20 10:20 WBC 3.1 L (4.0-10.0) 10^3/ uL RBC 3.95 L (4.1-5.3) 10^6/u L Hgb 10.9 L (11.5-15.3) g/dL Hct 35.2 L (37.0-47.0) % MCV 89.1 (81-99) fL MCH 27.6 L (28.0-34.0) pg MCHC 31.0 (30.0-36.0) g/dL RDW 14.3 (12.1-15.1) % Plt Count 92 L (130-400) 10^3/c mm MPV 11.1 H (7.4-10.4) fL Neut % (Auto) 83.1 % Lymph % (Auto) 14.0 % [place] % (Auto) 2.3 % Eos % (Auto) 0.3 % Baso % (Auto) 0.0 % Neut # (Auto) 2.55 (1.8-7.7) 10^3/u L Lymph # (Auto) 0.4 L (0.8-4.8) 10^3/u L [place] # (Auto) 0.1 L (0.2-0.9) 10^3/u L Eos # (Auto) 0.0 (0.0-0.8) 10^3/u L Baso # (Auto) 0.0 (0.0-0.1) 10^3/u L Nucleated RBC % (a uto) 0 % Nucleated RBCs # 0.0 /100WBC PT 12.60 (12.1-14.9) SECO NDS INR 0.92 (0.8-1.2) APTT 36.9 H (23.9-36.7) SECO NDS Fibrinogen 647 H (174-498) mg/dL D-Dimer 0.88 H (0-0.59) ug/mIFE U Specimen Type Arterial Sample Site Brachial, left ABG pH 7.39 (7.35-7.45) ABG pCO2 36.0 (35-45) mmHg ABG pO2 62.6 L (80.0-100.0) mmH g ABG HCO3 21.6 L (22-26) mmol/L ABG Base Excess -3.0 L (-2.0-2.0) mmol/ L Clint Test Pos Hematocrit 34.9 L (37-47) % O2 Delivery Device Nc O2 Liters/Min 12.0 % Senior Client Advisor ID Cak Sodium (136-145) mmol/L Potassium (3.5-5.1) mmol/L Chloride (98-107) mmol/L Carbon Dioxide (22-29) mmol/L Anion Gap (5-19) BUN (6-20) mg/dL Creatinine (0.5-0.9) mg/dL GFR Calculation (90-130) mL/min Glucose (65-115) mg/dL Calculated Osmolal ity (285-295) mOsm/k g Lactic Acid (0.5-2.2) mmol/L Calcium (8.5-10.5) mg/dL Ferritin (15-150) ng/mL Total Bilirubin (0.15-1.2) mg/dL AST (0-32) U/L ALT (0-33) U/L Alkaline Phosphata se (35-105) IU/L Lactate Dehydrogen ase (135-214) U/L Troponin T Gen 5 n g/L (0-10) ng/L C-Reactive Protein (0.0-4.9) mg/L Total Protein (6.6-8.7) g/dL Albumin (3.5-5.2) g/dL Globulin (1.3-4.6) g/dL Procalcitonin (0-0.5) ng/mL 05/03/20 05/03/20 05/03/20 Range/Units 10:20 10:20 10:57 WBC (4.0-10.0) 10^3/ uL RBC (4.1-5.3) 10^6/u L Hgb (11.5-15.3) g/dL Hct (37.0-47.0) % MCV (81-99) fL MCH (28.0-34.0) pg MCHC (30.0-36.0) g/dL RDW (12.1-15.1) % Plt Count (130-400) 10^3/c mm MPV (7.4-10.4) fL Neut % (Auto) % Lymph % (Auto) % [place] % (Auto) % Eos % (Auto) % Baso % (Auto) % Neut # (Auto) (1.8-7.7) 10^3/u L Lymph # (Auto) (0.8-4.8) 10^3/u L [place] # (Auto) (0.2-0.9) 10^3/u L Eos # (Auto) (0.0-0.8) 10^3/u L Baso # (Auto) (0.0-0.1) 10^3/u L Nucleated RBC % (a uto) % Nucleated RBCs # /100WBC PT (12.1-14.9) SECO NDS INR (0.8-1.2) APTT (23.9-36.7) SECO NDS Fibrinogen (174-498) mg/dL D-Dimer (0-0.59) ug/mIFE U Specimen Type Sample Site ABG pH (7.35-7.45) ABG pCO2 (35-45) mmHg ABG pO2 (80.0-100.0) mmH g ABG HCO3 (22-26) mmol/L ABG Base Excess (-2.0-2.0) mmol/ L Clint Test Hematocrit (37-47) % O2 Delivery Device O2 Liters/Min % Senior Client Advisor ID Sodium 137 (136-145) mmol/L Potassium 4.2 (3.5-5.1) mmol/L Chloride 104 (98-107) mmol/L Carbon Dioxide 21 L (22-29) mmol/L Anion Gap 16.2 (5-19) BUN 9 (6-20) mg/dL Creatinine 0.7 (0.5-0.9) mg/dL GFR Calculation 90.5 (90-130) mL/min Glucose 137 H (65-115) mg/dL Calculated Osmolal ity 282 L (285-295) mOsm/k g Lactic Acid 1.5 (0.5-2.2) mmol/L Calcium 7.5 L (8.5-10.5) mg/dL Ferritin 239 H (15-150) ng/mL Total Bilirubin 0.3 (0.15-1.2) mg/dL AST 46 H (0-32) U/L ALT 26 (0-33) U/L Alkaline Phosphata se 58 (35-105) IU/L Lactate Dehydrogen ase 483 H (135-214) U/L Troponin T Gen 5 n g/L 6 (0-10) ng/L C-Reactive Protein 107.8 H (0.0-4.9) mg/L Total Protein 6.6 (6.6-8.7) g/dL Albumin 3.8 (3.5-5.2) g/dL Globulin 2.8 (1.3-4.6) g/dL Procalcitonin 0.11 (0-0.5) ng/mL Critical Care Time Critical Care Time: Critical Care Time: Yes Total Critical Care Time: 45 Attestation: This case had a high probability of a clinically significant, sudden, or life threatening deterioration of this patient's condition which required my full and direct attention, intervention and personal management. Discharge Plan Discharge Patient Disposition: Xfer Other Referrals: Chano Renee DO [Primary Care Provider] - Discharge Date/Time: 05/03/20 16:00 Coding Level of Care Code ED Home Health Clinician for [facility] [place]
[2020-05-03] MEDS: morphine 4 mg/mL SDV 1 mL IVP (10:33)
[2020-05-03] MEDS: dexamethasone 4 mg/mL INJ 6 MG IVP (10:33)
[2020-05-03] MEDS: ondansetron 2 mg/ML SDV 2 mL 4 MG IVP (10:33)
[2020-05-03 10:34] LABS: Eosinophils % 0.3 %; Hematocrit 35.2 % (37.0-47.0); Hemoglobin 10.9 g/dL (11.5-15.3); Lymphocytes # 0.4 10^3/uL (0.8-4.8); Mean Corpuscular Hemoglobin 27.6 pg (28.0-34.0); Mean Corpuscular Volume 89.1 fL (81-99); Mean Platelet Volume 11.1 fL (7.4-10.4); Monocytes # 0.1 10^3/uL (0.2-0.9); Monocytes % 2.3 %; Neutrophils # 2.55 10^3/uL (1.8-7.7); Neutrophils % 83.1 %; Nucleated Red Blood Cells % 0 %; Platelet Count 92 10^3/cmm (130-400); Red Blood Count 3.95 10^6/uL (4.1-5.3); Red Cell Distribution Width 14.3 % (12.1-15.1); White Blood Count 3.1 10^3/uL (4.0-10.0)
[2020-05-03 10:42] LABS: INR 0.92 (0.8-1.2)
[2020-05-03 10:43] LABS: Fibrinogen 647 mg/dL (174-498); Partial Thromboplastin Time 36.9 SECONDS (23.9-36.7)
[2020-05-03 10:46] LABS: D Dimer 0.88 ug/mIFEU (0-0.59); Lactic Sepsis W/Reflex 1.5 mmol/L (0.5-2.2)
[2020-05-03 11:07] LABS: Slide Review Slide Review Perform
[2020-05-03 11:56] LABS: Procalcitonin 0.11 ng/mL (0-0.5)
[2020-05-03 12:07] LABS: Alanine Aminotransferase 26 U/L (0-33); Albumin Level 3.8 g/dL (3.5-5.2); Alkaline Phosphatase 58 IU/L (35-105); Anion Gap 16.2 (5-19); Aspartate Amino Transferase 46 U/L (0-32); Blood Urea Nitrogen 9 mg/dL (6-20); C Reactive Protein 107.8 mg/L (0.0-4.9); Calcium 7.5 mg/dL (8.5-10.5); Carbon Dioxide 21 mmol/L (22-29); Chloride 104 mmol/L (98-107); Ferritin 239 ng/mL (15-150); Globulin 2.8 g/dL (1.3-4.6); Glomerular Filtration Rate 90.5 mL/min (90-130); Glucose 137 mg/dL (65-115); Lactate Dehydrogenase 483 U/L (135-214); Osmolality Calculated 282 mOsm/kg (285-295); Potassium 4.2 mmol/L (3.5-5.1); Sodium 137 mmol/L (136-145); Total Bilirubin 0.3 mg/dL (0.15-1.2); Total Protein 6.6 g/dL (6.6-8.7)
[2020-05-03] MEDS: propofol 1,000 MG/100 ML INJ 4.8 MG IV (12:13)
[2020-05-03] MEDS: enoxaparin 120 mg/0.8 mL Syringe 110 MG SUBCUT (12:16)
[2020-05-03] MEDS: fentaNYL 50 mcg/mL INJ 2mL IVP (12:26)
[2020-05-03 12:29] LABS: Troponin T (5th) Once 6 ng/L (0-10)
[2020-05-03] MEDS: succinylcholine 20 mg/mL SDV 10mL 120 MG IVP (12:33)
[2020-05-03] MEDS: propofol 10 mg/mL SDV 20 mL 140 MG IVP (13:00)
--- NOTE | 2020-05-03 14:39 | XR_ITS ---
WS: [id number] Portable AP supine chest, 05/03/2020, 1445 hours Clinical Data: post intubation cxr Comparison: Portable chest, 05/03/2020 1040 hours. Findings: Endotracheal tube is above the ivelisse. There is an oral gastric tube which appears to end i n the stomach. The bilateral opacities in the lungs have increased. The patient is rotated. Monitor l lisette are on the chest wall. XR/XR chest 1V portable [id number] Impression: 1. Satisfactory position of oral gastric tube and endotracheal tube. 2. Worsening bilateral peripheral opacities which may represent worsening pneum onia.
--- NOTE | 2020-05-04 15:27 | PC.NURSE ---
Patient had OG placed per Lorie Bowser RN at the time of intubation.
--- NOTE | 2020-05-04 16:12 | PC.NURSE ---
OG inserted and cabral inserted at the time of intubation per verbal order of Dr. Ivey.
== END 2020-05-03 16:00 | disposition other institution (70) ==
PROVIDERS: Emergency Provider Family Medicine; PCP Family Medicine
DX: U07.1 COVID-19 (principal); E11.9 Type 2 diabetes mellitus without complications; Z86.711 Personal history of pulmonary embolism
CPT/HCPCS: 12345; 31500; 36600; 51702; 71045; 71275; 80053; 82728; 82803; 83605; 83615; 84145; 84484; 85025; 85378; 85384; 85610; 85730; 86140; 87040; 87070; 87205; 93005; 94002; 94640; 94799; 96365; 96366; 96367; 96368; 96372; 96375; 99285; 99291; J0330; J1100; J1650; J2250; J2270; J2405; J2704; J3010; J3490; J3535; Q9967

== ENCOUNTER 2020-05-15 21:13 | Inpatient (IN) | payer MEDICARE, MEDICAID, SELFPAY ==
[2020-05-15 21:32] VITALS: BMI 43.2
--- NOTE | 2020-05-15 21:33 | P.HP_ITS ---
Providers/Chief Complaint Admitting Physician: Vincent Jessica MD Primary Care Provider: Chano Renee DO Chief Complaint: Dysphagia/pneumonia History of Present Illness Carmen Hooper is a 44 year old female who contracted SARS COVID-19 and start of this month, was intubated on 05/03 in our ER and was transferred to [facility] because our VICU was on diversion. She got transferred to our hospital from [facility] to plan her disposition and evaluate deconditioning and dysphonia. Patient was positive for COVID on 04/27, presented to the [facility] ER, hypoxic requiring high flow oxygenation, before transferring her to the hospital in [place] she was intubated by Dr. Rodriguez. She stayed in viral ICU until today. She got dexamethasone, convalescent plasma, antiviral Remdesvir treatment over there, she was extubated on 05/07, since extubation she has been experiencing dysphonia, she has been getting feeds via NG tube, she was not requiring any oxygenation on discharge, ARDS/viral pneumonia resolved as per the imaging report from this facility. Medical records reviewed. She got transferred to our hospital around 9:30 PM on 05/15, at the time of evaluation patient is saturating well on room air, she is able to talk and eat, she is happy with the progress, no active complaints, no diarrhea, fever. She is endorsing generalized weakness, she is trying to restart her p.o. diet. Review of Systems Const: Reports: body aches, change in appetite, fatigue and malaise; Denies: fever(s) or chills Eyes: Denies: change in vision ENMT: Reports: throat pain Card: Denies: chest pain Resp: Denies: dyspnea GI: Denies: abdominal pain : Denies: flank pain Musc: Denies: neck pain Skin/Breast: Denies: rash Neuro: Denies: headache(s) Psych: Reports: anxiety Endo: Denies: polyuria Kanu/Lymph: Denies: easy bruising All/Imm: Denies: urticaria Medications/Allergies Home Medications Medication Instructions Recorded Confirmed Last Taken Type acetaminophen 500 mg capsule 500 mg PO Q4H PRN 09/05/19 05/03/20 01/19/20 History chlorpheniramine maleate 4 mg 4 mg PO DAILY tab 09/05/19 05/03/20 02/24/20 History tablet cranberry extract 200 mg capsule 200 mg PO DAILY 09/05/19 05/03/20 02/24/20 History nystatin 100,000 unit/gram topical 1 applic TOPICAL BID 09/05/19 05/03/20 01/19/20 History cream rizatriptan 10 mg tablet 10 mg PO DAILY PRN 09/05/19 05/03/20 01/19/20 History melatonin 3 mg capsule 6 mg PO BEDTIME PRN cap 09/06/19 05/03/20 01/19/20 History omeprazole 20 mg capsule,delayed 20 mg PO DAILY 03/05/20 05/03/20 Unknown History release buspirone 15 mg tablet 15 mg PO BID PRN 30 Days #60 tab 03/13/20 05/03/20 Unknown Rx cyclobenzaprine 10 mg tablet 20 mg PO BID PRN #120 tab 03/13/20 05/03/20 Unknown Rx gabapentin 800 mg tablet 800 mg PO Q6H 30 Days #120 tab 03/13/20 05/03/20 Unknown Rx morphine 15 mg tablet,extended 15 mg PO Q12H 30 Days #60 tab 03/13/20 05/03/20 Unknown Rx release bupropion HCl 300 mg 24 hr tablet, 300 mg PO QAM #30 tab 03/16/20 05/03/20 Unknown Rx extended release sertraline 100 mg tablet 200 mg PO DAILY #60 tab 03/16/20 05/03/20 Unknown Rx fluconazole 50 mg tablet 50 mg PO DAILY #1 tab 03/19/20 05/03/20 Unknown Rx ondansetron HCl 4 mg tablet See Rx Instructions .ROUTE 04/18/20 05/03/20 Unknown Rx .COMPLEX #30 unspecified hydrocodone 10 mg-acetaminophen 1 tab PO Q6H PRN 30 Days #120 tab 04/20/20 05/03/20 Unknown Rx 325 mg tablet azithromycin 250 mg tablet See Rx Instructions PO .COMPLEX #6 04/26/20 05/03/20 Unknown Rx tab albuterol sulfate 1 puff INHALATION QID PRN 05/03/20 05/03/20 Unknown History dexamethasone 2 mg PO TID 05/03/20 05/03/20 Unknown History metoprolol succinate 50 mg 50 mg PO BID #60 tab 05/04/20 Unknown Rx tablet,extended release 24 hr Allergies Allergy/AdvReac Type Severity Reaction Status Date / Time metoclopramide [From Reglan] Allergy shortness Verified 04/26/20 13:21 of breath promethazine [From Phenergan] Allergy shortness Verified 04/26/20 13:21 of breath PFSH Acute PFSH: Medical History (Updated 05/15/20 @ 22:22 by Kasey Sanchez MD) Anxiety Chiari malformation Chronic migraine Chronic pain Diabetes mellitus Diverticulitis Juvencio-Danlos syndrome Encounter for long-term use of opiate analgesic Generalized anxiety disorder Hip pain, bilateral Major depressive disorder, recurrent, moderate Neck pain Opioid contract exists Pneumonia due to COVID-19 virus TMJ (dislocation of temporomandibular joint) Surgical History (Updated 05/15/20 @ 22:22 by Kasey Sanchez MD) History of foot surgery S/P carpal tunnel release S/P section S/P cholecystectomy 02/09/2019 [place] teeth extracted Family History Father Hypertension Grandmother Family history of premature coronary artery disease Social History Smoking and tobacco status: never smoked Alcohol intake: never History of recent travel: No Female Reproductive History: Date of last menstrual period: 01/16/20 Physical Exam Narrative: EXAM NARRATIVE: Obese female currently laying comfortably in her bed Dysphonia noted Cushingoid features S1, S2 no tachycardia Abdomen soft, distended bowel sound present Low symmetry no edema gangrene ulcer No neurological deficit GCS 15 awake alert oriented x3 EOMI, PERRLA No acute respiratory distress Saturating well on room air She has a right-sided PICC line which was placed on 05/11 A&P Assessment and plan (1) Dysphonia: Status: Acute (2) Physical deconditioning: Status: Acute Additional A&P Information Dysphonia after extubation Patient stayed intubated for 4 days Was intubated at [facility] ER by Dr. Rodriguez, extubated on 05/07 Patient is feeding via nasogastric tube however she has resumed her p.o. diet, she is currently denying any aspiration or choking sensation Will get speech evaluation in the morning She will need speech rehab, outpatient ENT consult No active stridor, no acute respiratory distress I would not use steroids at this point Saturating well on room air, Physical deconditioning Patient stayed in viral ICU for 2 weeks We will get physical therapy evaluation in the morning Deconditioning secondary to prolonged ICU stay Postrecovery ARDS COVID-19 Chest x-ray showed resolution of viral pneumonia She received convalescent plasma, steroid, antiviral treatment Currently saturating well, no active respiratory distress Will repeat COVID antigen test Generalized anxiety disorder Would use bupropion and gabapentin for now, Diet: Clear liquid Speech evaluation in the morning Physical therapy evaluation in the morning Moderate insulin sliding scale for type 2 diabetes DVT prophylaxis Lovenox Kindly evaluate if we could remove her PICC line in the morning, Full code Attestations Medical Necessity Statement*: Anticipating discharge in less than 48 hours currently need speech and physical therapy evaluation, postrecovery COVID-19 ARDS Time Spent in Patient Care: (>than 50% of time spent in counselling and/or direct pt care on unit) . 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
[2020-05-15 22:28] VITALS: BP 143/102; PULSE 141; RESP 20; TEMP 36.7; O2SAT 95
--- NOTE | 2020-05-15 22:50 | PC.NURSE ---
REPORTED BP TO NURSE!
[2020-05-15 23:20] LABS: SARS Covid-2 Antigen Negative (Negative)
[2020-05-15] MEDS: gabapentin 400 mg Capsule 800 MG PO (23:23)
[2020-05-15] MEDS: enoxaparin 40 mg/0.4 mL Syringe SUBCUT (23:23)
[2020-05-16] VITALS (7 sets, daily range): BP systolic 114–139; BP diastolic 54–99; PULSE 69–112; RESP 16–20; TEMP 36.3–37; O2SAT 93–97
[2020-05-16 05:45] LABS: Basophils % 0.1 %; Eosinophils # 0.1 10^3/uL (0.0-0.8); Hematocrit 37.7 % (37.0-47.0); Hemoglobin 11.9 g/dL (11.5-15.3); Lymphocytes # 2.1 10^3/uL (0.8-4.8); Mean Corpuscular HGB Conc 31.6 g/dL (30.0-36.0); Mean Corpuscular Volume 88.7 fL (81-99); Mean Platelet Volume 11.5 fL (7.4-10.4); Neutrophils # 7.41 10^3/uL (1.8-7.7); Neutrophils % 69.2 %; Nucleated Red Blood Cells % 0 %; Platelet Count 256 10^3/cmm (130-400); Red Blood Count 4.25 10^6/uL (4.1-5.3); Red Cell Distribution Width 14.1 % (12.1-15.1); White Blood Count 10.7 10^3/uL (4.0-10.0)
[2020-05-16] MEDS: buPROPion XL (24 HR) 300 mg Tablet PO (06:25)
[2020-05-16 06:28] LABS: Anion Gap 15.5 (5-19); Blood Urea Nitrogen 24 mg/dL (6-20); Calcium 9.3 mg/dL (8.5-10.5); Carbon Dioxide 23 mmol/L (22-29); Chloride 100 mmol/L (98-107); Glomerular Filtration Rate 90.5 mL/min (90-130); Glucose 188 mg/dL (65-115); Osmolality Calculated 289 mOsm/kg (285-295); Potassium 3.5 mmol/L (3.5-5.1); Sodium 135 mmol/L (136-145); Thyroid Stimulating Hormone 3.07 uIU/mL (0.27-4.20)
[2020-05-16 06:50] LABS: Glucose Point of Care 170 mg/dL (70-110)
[2020-05-16] MEDS: gabapentin 400 mg Capsule 800 MG PO ×2 (09:10→21:20)
[2020-05-16] MEDS: pantoprazole DR 40 mg Tablet PO (09:10)
[2020-05-16] MEDS: metoprolol succinate ER (24 HR) 50 mg Tablet PO (09:10)
[2020-05-16] MEDS: nystatin cream 30 gm 1 APPLIC TOPICAL ×2 (09:12→17:09)
--- NOTE | 2020-05-16 10:26 | PM.PN ---
Subjective Subjective: Interval history: After transfer from [facility]. she Has been doing fine. NG tube has been removed. She is tolerating diet. She is saturating well on room air. Afebrile and hemodynamically stable. Vitals/I&O/Wt Last Vital Signs Temp 97.3 F L 05/16/20 09:31 Pulse 78 05/16/20 09:31 Resp 16 05/16/20 09:31 BP 126/78 05/16/20 09:31 Pulse Ox 96 05/16/20 09:31 05/15/20 05/16/20 05/16/20 22:59 06:59 14:59 Intake Total 240 / 240 Output Total 550 / 550 Balance -310 / -310 Weight last 48 hrs Weight 110.631 kg Weight 110.631 kg Physical Exam Narrative: EXAM NARRATIVE: EXAM NARRATIVE: Obese female currently laying comfortably in her bed Dysphonia noted Cushingoid features S1, S2 no tachycardia Abdomen soft, distended bowel sound present Low symmetry no edema gangrene ulcer No neurological deficit GCS 15 awake alert oriented x3 EOMI, PERRLA No acute respiratory distress Saturating well on room air Data : 05/16/20 05:36 05/16/20 15:21 A&P Assessment and plan (1) Dysphonia: Status: Acute (2) Physical deconditioning: Status: Acute Additional A&P Information Dysphonia after extubation Patient stayed intubated for 4 days Was intubated at [facility] ER by Dr. Rodriguez, extubated on 05/07 Patient is feeding via nasogastric tube however she has resumed her p.o. diet, she is currently denying any aspiration or choking sensation Will get speech evaluation in the morning She will need speech rehab, outpatient ENT consult No active stridor, no acute respiratory distress I would not use steroids at this point Saturating well on room air, Physical deconditioning Patient stayed in viral ICU for 2 weeks We will get physical therapy evaluation in the morning Deconditioning secondary to prolonged ICU stay Postrecovery ARDS COVID-19 Chest x-ray showed resolution of viral pneumonia She received convalescent plasma, steroid, antiviral treatment Currently saturating well, no active respiratory distress Will repeat COVID antigen test Generalized anxiety disorder Would use bupropion and gabapentin for now, Diet: Clear liquid Speech evaluation in the morning Physical therapy evaluation in the morning Moderate insulin sliding scale for type 2 diabetes DVT prophylaxis Lovenox Kindly evaluate if we could remove her PICC line in the morning, Full code Attestations Medical Necessity Statement*: Patient needs to be in hospital for management of post COVID syndrome. Coding Level of Care Code Acute Clinical Manager for Chelsey Magana Diagnoses Dysphonia R49.0 Physical deconditioning R53.81
[2020-05-16 10:57] LABS: Glucose Point of Care 227 mg/dL (70-110)
--- NOTE | 2020-05-16 12:55 | PC.SOCIAL ---
Patient was transferred back from [facility] as inpatient status to our facility. Dr Jessica completed Doc to Doc yesterday and accepted the patient. NIghttime provider admitted the patient since she arrived after 1900. Patient should have been placed as inpatient since she was a transfer from inpatient at [facility]. Verified with Director of JASSON Rios and discussed with Dr Jessica. Order given to enter order as inpatient from beginning since this would be appropriate. Verbal order entered.
--- NOTE | 2020-05-16 13:02 | PC.NURSE ---
NG TUBE NG TUBE REMOVED PER PHYSICIAN'S ORDERS. PT TOLERATED WELL.
[2020-05-16 15:55] LABS: Anion Gap 15.7 (5-19); Blood Urea Nitrogen 24 mg/dL (6-20); Calcium 9.4 mg/dL (8.5-10.5); Carbon Dioxide 24 mmol/L (22-29); Chloride 98 mmol/L (98-107); Glomerular Filtration Rate 90.5 mL/min (90-130); Glucose 140 mg/dL (65-115); Osmolality Calculated 284 mOsm/kg (285-295); Potassium 3.7 mmol/L (3.5-5.1); Sodium 134 mmol/L (136-145)
[2020-05-16 17:54] LABS: Glucose Point of Care 131 mg/dL (70-110)
[2020-05-16 21:02] LABS: Glucose Point of Care 138 mg/dL (70-110)
[2020-05-16] MEDS: enoxaparin 40 mg/0.4 mL Syringe SUBCUT (21:20)
[2020-05-17] MEDS: HYDROcodone-acetaminophen 10-325 mg Tablet 1 TAB PO (02:19)
[2020-05-17 03:00] VITALS: BP 121/85; PULSE 101; RESP 14; TEMP 36.9; O2SAT 96
[2020-05-17 06:25] LABS: Basophils % 0.1 %; Eosinophils # 0.1 10^3/uL (0.0-0.8); Eosinophils % 1.2 %; Hematocrit 38.8 % (37.0-47.0); Hemoglobin 11.9 g/dL (11.5-15.3); Lymphocytes # 2.5 10^3/uL (0.8-4.8); Lymphocytes % 26.7 %; Mean Corpuscular HGB Conc 30.7 g/dL (30.0-36.0); Mean Corpuscular Hemoglobin 27.8 pg (28.0-34.0); Mean Corpuscular Volume 90.7 fL (81-99); Monocytes % 10.7 %; Neutrophils # 5.57 10^3/uL (1.8-7.7); Neutrophils % 60.5 %; Nucleated Red Blood Cells % 0 %; Platelet Count 248 10^3/cmm (130-400); Red Blood Count 4.28 10^6/uL (4.1-5.3); Red Cell Distribution Width 14.4 % (12.1-15.1); White Blood Count 9.2 10^3/uL (4.0-10.0)
[2020-05-17] MEDS: buPROPion XL (24 HR) 300 mg Tablet PO (06:37)
[2020-05-17 07:00] VITALS: BP 134/90; PULSE 116; RESP 18; TEMP 36.6; O2SAT 100
[2020-05-17 07:01] LABS: Estmated Average Glucose 126
[2020-05-17 07:39] LABS: Glucose Point of Care 158 mg/dL (70-110)
[2020-05-17] MEDS: pantoprazole DR 40 mg Tablet PO (09:18)
[2020-05-17] MEDS: nystatin cream 30 gm 1 APPLIC TOPICAL (09:18)
[2020-05-17] MEDS: gabapentin 400 mg Capsule 800 MG PO (09:18)
[2020-05-17] MEDS: metoprolol succinate ER (24 HR) 50 mg Tablet PO (09:18)
--- NOTE | 2020-05-17 09:50 | PC.SOCIAL ---
Late Entry for 05/15/2020 0830. Call received this am by Park Activities Coordinator from [facility]. We discussed possible transferring this patient back from [facility] now that she is stable. We transferred her to [facility] from the ED on 05/03/2020. At time of call she was on the Telemetry Medical floor. She was on RA sats 97%. She does have NG tube in place due to Laryngeal Edema post intubation. She was evaluated by ENT there. Requested recent PN and Facesheet. Verified with [facility] that they have her on a regular floor and wearing PPE per CDC recommendations which include surgical mask and goggles. At the time of discussion patient was also on insulin drip but per CM report plan was to discontinue the drip. Discussed that the drip would need to be dc'd and patient stable off drip prior to our being able to accept due to no ICU beds available currently. Later in the afternoon called by CM and discussed patient doing well off Insulin Drip. Doc to Doc set up with our physician Dr Jessica and had Dr Jessica review progress note in advance. Dr Jessica accepted patient in transfer. Park Activities Coordinator indicated due to delay in transport will be the evening before patient can arrive. All information has been discussed with Liz VegasMice Raiser and private room [id number] has been assigned for patient.
--- NOTE | 2020-05-17 09:54 | P.DS_ITS ---
Discharge Providers Date of Admission: 05/15/20 21:13 Date of Discharge: May 17, 2020 Attending Provider at Admission: Vincent Jessica MD Attending Provider at Discharge: Vincent Jessica MD Primary Care Provider: Chano Renee DO Diagnoses at Discharge Discharge Diagnosis (1) Dysphonia: Status: Acute (2) Physical deconditioning: Status: Acute (3) UTI (urinary tract infection): Status: Acute Reason for Visit Reason for Visit: GENERALIZED WEAKNESS Hospital Course Hospital Course: 44 year old female with past medical history of hypertension, diabetes(on diet and exercise) contracted SARS COVID-19 at the start of this month, was intubated on 05/03 in our ER and was transferred to [facility] because our VICU was on diversion. She got transferred to our hospital from [facility] to plan her disposition and evaluate deconditioning and dysphonia. Patient was positive for COVID on 04/27, presented to the [facility] ER, hypoxic requiring high flow oxygenation, before transferring her to the hospital in [place] she was intubated by Dr. Rodriguez. She stayed in viral ICU . She got dexamethasone, convalescent plasma, antiviral Remdesvir treatment over there, she was extubated on 05/07, since extubation she has been experiencing dysphonia, she has been getting feeds via NG tube, she was not requiring any oxygenation on discharge, ARDS/viral pneumonia resolved as per the imaging report from this facility. Medical records reviewed. She got transferred to our hospital around 9:30 PM on 05/15, at the time of evaluation patient is saturating well on room air, she is able to talk and eat, she is happy with the progress, no active complaints, no diarrhea, fever. She was also complaining of UTIs during the hospital stay she has been dischar ged on levofloxacin. We will discharge the patient to follow-up with a primary care. Physical Exam Narrative: EXAM NARRATIVE: EXAM NARRATIVE: EXAM NARRATIVE: Obese female currently laying comfortably in her bed Dysphonia noted Cushingoid features S1, S2 no tachycardia Abdomen soft, distended bowel sound present Low symmetry no edema gangrene ulcer No neurological deficit GCS 15 awake alert oriented x3 EOMI, PERRLA No acute respiratory distress Saturating well on room air. Discharge Data Data Completed and Pending: Labs from last 24 hours 05/17/20 05/17/20 05/17/20 06:50 05:50 05:50 WBC 9.2 RBC 4.28 Hgb 11.9 Hct 38.8 MCV 90.7 MCH 27.8 L MCHC 30.7 RDW 14.4 Plt Count 248 MPV 12.0 H Neut % (Auto) 60.5 Lymph % (Auto) 26.7 Wolfe % (Auto) 10.7 Eos % (Auto) 1.2 Baso % (Auto) 0.1 Neut # (Auto) 5.57 Lymph # (Auto) 2.5 Wolfe # (Auto) 1.0 H Eos # (Auto) 0.1 Baso # (Auto) 0.0 Nucleated RBC % (a uto) 0 Nucleated RBCs # 0.0 Sodium Potassium Chloride Carbon Dioxide Anion Gap BUN Creatinine GFR Calculation Glucose POC Glucose 158 Estimat Average Gl ucose 126 Hemoglobin A1c 6.0 Calculated Osmolal ity Calcium 05/16/20 05/16/20 05/16/20 20:58 17:28 15:21 WBC RBC Hgb Hct MCV MCH MCHC RDW Plt Count MPV Neut % (Auto) Lymph % (Auto) Wolfe % (Auto) Eos % (Auto) Baso % (Auto) Neut # (Auto) Lymph # (Auto) Wolfe # (Auto) Eos # (Auto) Baso # (Auto) Nucleated RBC % (a uto) Nucleated RBCs # Sodium 134 L Potassium 3.7 Chloride 98 Carbon Dioxide 24 Anion Gap 15.7 BUN 24 H Creatinine 0.7 GFR Calculation 90.5 Glucose 140 H POC Glucose 138 131 Estimat Average Gl ucose Hemoglobin A1c Calculated Osmolal ity 284 L Calcium 9.4 05/16/20 10:45 WBC RBC Hgb Hct MCV MCH MCHC RDW Plt Count MPV Neut % (Auto) Lymph % (Auto) Wolfe % (Auto) Eos % (Auto) Baso % (Auto) Neut # (Auto) Lymph # (Auto) Wolfe # (Auto) Eos # (Auto) Baso # (Auto) Nucleated RBC % (a uto) Nucleated RBCs # Sodium Potassium Chloride Carbon Dioxide Anion Gap BUN Creatinine GFR Calculation Glucose POC Glucose 227 Estimat Average Gl ucose Hemoglobin A1c Calculated Osmolal ity Calcium Vitals: Last Vital Signs Temp 97.8 F 05/17/20 07:00 Pulse 116 H 05/17/20 07:00 Resp 18 05/17/20 07:00 BP 134/90 05/17/20 07:00 Pulse Ox 100 05/17/20 07:00 Discharge Plan Discharge Patient Disposition: Home Condition: Stable Prescriptions: New levofloxacin 750 mg tablet 750 mg PO DAILY 7 Days RF: 0 Continued gabapentin 800 mg tablet 800 mg PO Q6H 30 Days Qty: 120 RF: 1 morphine 15 mg tablet extended release 15 mg PO Q12H 30 Days Qty: 60 RF: 0 cyclobenzaprine 10 mg tablet 20 mg PO BID PRN (Reason: muscle spasm) Qty: 120 RF: 0 buspirone 15 mg tablet 15 mg PO BID PRN (Reason: anxiety) 30 Days Qty: 60 RF: 1 omeprazole 20 mg capsule,delayed release(DR/EC) 20 mg PO DAILY RF: 0 Wellbutrin XL 300 mg tablet extended release 24 hr 300 mg PO QAM Qty: 30 RF: 2 sertraline 100 mg tablet 200 mg PO DAILY Qty: 60 RF: 2 rizatriptan 10 mg tablet 10 mg PO DAILY PRN (Reason: Migraine Headache) RF: 0 cranberry extract 200 mg capsule 200 mg PO DAILY RF: 0 acetaminophen 500 mg capsule 500 mg PO Q4H PRN (Reason: Pain) RF: 0 chlorpheniramine maleate [Allergy (chlorpheniramine)] 4 mg tablet 4 mg PO DAILY RF: 0 melatonin 3 mg capsule 6 mg PO BEDTIME PRN (Reason: Insomnia) RF: 0 hydrocodone-acetaminophen 10-325 mg tablet 1 tab PO Q6H PRN (Reason: Pain) 30 Days Qty: 120 RF: 0 metoprolol succinate 50 mg tablet extended release 24 hr 50 mg PO BID Qty: 60 RF: 5 albuterol sulfate 90 mcg/actuation Hfa Aerosol Inhaler 1 puff INHALATION QID PRN (Reason: Shortness Of Breath) RF: 0 Zofran 4 mg Tablet 4 mg PO Q6H PRN (Reason: Nausea) RF: 0 Discharge Orders: Discharge Order (Routine); Ordered 05/17/20 Ordered By: Vincent Jessica Other Ambulatory Orders: DME: [employer] (Order) Location: None Selected Ordered By: Vincent Jessica DME: Walker (Order) Location: None Selected Ordered By: Vincent Jessica Referrals: [facility] [Outside] Chano Renee DO [Primary Care Provider] - 05/24/20 9:00 am (You have a hospital follow up appointment on May 24 at 9:00am) Discharge Diet: Diabetic Discharge Activity: Resume usual activity Patient Instructions: Levofloxacin (By mouth), Pneumonia Stoplight, Pneumonia - Viral Discharge Date/Time: 05/17/20 13:30 Discharge Attestations Time Spent in Discharge Care*: greater than 30 min Specific Discharge Activities: Specific discharge activities: educating patient, educating and/or supporting family/caregiver, discussing with pcp/other providers, discussing with correctional case manager/social workers/dc planners, documenting/other paperwork and evaluating patient/reviewing data Status at Discharge: Cognitive status at discharge: cognitively intact , Behavioral status at discharge: cooperative , Functional status at discharge: independent ambulation Overall status at discharge: patient is back to baseline Quality Metrics Clinical Quality Measures During this hospital stay, did patient experience: None Coding Level of Care Code Acute Senior Systems Developer for Chg Fwd Diagnoses Dysphonia R49.0 Physical deconditioning R53.81 UTI (urinary tract infection) N39.0
[2020-05-17 10:21] VITALS: BP 134/90; PULSE 116; RESP 18; TEMP 36.6; O2SAT 100
[2020-05-17 10:54] LABS: Glucose Point of Care 176 mg/dL (70-110)
[2020-05-17 11:00] VITALS: BP 118/64; PULSE 86; RESP 22; TEMP 36.8; O2SAT 96
== END 2020-05-17 13:30 | disposition home or self-care (01) | DRG 177 ==
PROVIDERS: Internal Medicine; Admitting Provider Internal Medicine; PCP Family Medicine; Visit Provider Internal Medicine
DX: U07.1 COVID-19 (principal); J12.89 Other viral pneumonia; F33.9 Major depressive disorder, recurrent, unspecified; N39.0 Urinary tract infection, site not specified; R49.0 Dysphonia; F41.1 Generalized anxiety disorder; R53.81 Other malaise; G43.709 Chronic migraine without aura, not intractable, without status migrainosus; G89.29 Other chronic pain; E11.9 Type 2 diabetes mellitus without complications; Z79.891 Long term (current) use of opiate analgesic; M25.552 Pain in left hip; M25.551 Pain in right hip; M26.609 Unspecified temporomandibular joint disorder, unspecified side
CPT/HCPCS: 12345; 36415; 36416; 80048; 82962; 83036; 84443; 85025; 87426; 92524; 92610; 96372; 97110; 97116; 97161; 97530; G0379; J1650; J1815

== ENCOUNTER → 2020-05-29 13:51 | Outpatient (BNVA) | payer BC, MEDICAID, SELFPAY | PROVIDERS: PCP Family Medicine; Visit Provider Anesthesiology | DX: M54.2 Cervicalgia (principal); M54.9 Dorsalgia, unspecified; Z79.891 Long term (current) use of opiate analgesic | CPT/HCPCS: 99213; 99214 ==

== ENCOUNTER 2020-06-07 17:27 | Observation (INO) | payer MEDICARE, MEDICAID, SELFPAY ==
[2020-06-07] VITALS (7 sets, daily range): BP systolic 112–126; BP diastolic 69–93; PULSE 74–91; RESP 16–26; TEMP 36.9; O2SAT 93–96; BMI 45.1
--- NOTE | 2020-06-07 18:19 | XR_ITS ---
WS: [id number] Portable AP upright chest, 06/07/2020 Clinical Data: sob Comparison: Portable chest, 05/03/2020. Findings: No nodules, masses or effusions are seen. The heart is enlarged. The pulmonary vascularity is not increased. No pneumonia or pneumothorax is seen. XR/XR chest 1V portable [id number] Impression: Cardiomegaly.
--- NOTE | 2020-06-07 18:19 | ECG_ITS ---
[facility] Test Date: 2020-06-07 Pat Name: Carmen Hooper Department: Room: Gender: Female Muffler Tender: : 1975 Requested By: Raimundo Menjivar Order Number: [id number] Meme MD: Delta Caldera M.D. Measurements Intervals Sutton Rate: 77 P: 22 VT: 152 QRS: 21 QRSD: 80 T: 12 QT: 379 QTc: 431 Interpretive Statements SINUS RHYTHM MINIMAL ST DEPRESSION [0.025+ mV ST DEPRESSION] Compared to ECG 05/03/2020 10:06:44 ST (T wave) deviation now present Sinus tachycardia no longer present T-wave abnormality no longer present Electronically Signed On 06-07-2020 20:55:14 CDT by Delta Caldera M.D. [id number]
[2020-06-07 18:47] LABS: ABG PCO2 42.3 mmHg (35-45); ABG PH Result 7.39 (7.35-7.45); Arterial Blood Gas Hematocrit 33.3 % (37-47); Base Excess ABG 0.4 mmol/L (-2.0-2.0); Blood Gas Allen Test Pos; Blood Gas Operator Identificat MONRO; Blood Gas Sample Site Radial, right; Blood Gas Sample Type Arterial; HCO3 ABG 25.5 mmol/L (22-26); Methemoglobin 0.7 % (0.4-1.5); Oxygen Device ROOM AIR; Total Hemoglobin 10.9 g/dL (12-16)
[2020-06-07 20:40] LABS: Basophils # 0.1 10^3/uL (0.0-0.1); Basophils % 0.9 %; Eosinophils # 0.1 10^3/uL (0.0-0.8); Eosinophils % 1.2 %; Hematocrit 37.3 % (37.0-47.0); Lymphocytes # 2.9 10^3/uL (0.8-4.8); Lymphocytes % 50.6 %; Mean Corpuscular HGB Conc 29.5 g/dL (30.0-36.0); Mean Corpuscular Hemoglobin 26.9 pg (28.0-34.0); Mean Corpuscular Volume 91.2 fL (81-99); Mean Platelet Volume 9.9 fL (7.4-10.4); Monocytes # 0.5 10^3/uL (0.2-0.9); Monocytes % 9.4 %; Neutrophils # 2.15 10^3/uL (1.8-7.7); Neutrophils % 37.6 %; Nucleated Red Blood Cells % 0 %; Platelet Count 214 10^3/cmm (130-400); Red Blood Count 4.09 10^6/uL (4.1-5.3); Red Cell Distribution Width 15.7 % (12.1-15.1); White Blood Count 5.7 10^3/uL (4.0-10.0)
[2020-06-07 20:50] LABS: INR 0.91 (0.8-1.2)
[2020-06-07 20:53] LABS: D Dimer 0.74 ug/mIFEU (0-0.59)
--- NOTE | 2020-06-07 20:58 | CTR_ITS ---
PROCEDURE INFORMATION: Exam: CT Angiography Chest With Contrast Exam date and time: 06/07/2020 9:34 PM Age: 44 years old Clinical indication: Shortness of breath; Prior surgery; Surgery type: Gb; Additional info: Dyspnea TECHNIQUE: Imaging protocol: Computed tomographic angiography of the chest with intravenous contrast. 3D rendering (Not supervised by radiologist): MIP and/or 3D reconstructed images were created by the technologist. Radiation optimization: All CT scans at this facility use at least one of these dose optimization techniques: automated exposure control; mA and/or kV adjustment per patient size (includes targeted exams where dose is matched to clinical indication); or iterative reconstruction. Contrast material: OMNI 350; Contrast volume: 87 ml; Contrast route: INTRAVENOUS (IV); COMPARISON: CT angio chest PE protcl [id number] 05/03/2020 10:14 AM RADIATION DOSE METRICS: Total DLP (mGy-cm): 649.35 FINDINGS: Pulmonary arteries: Positive for nonocclusive pulmonary arterial thrombus/pulmonary arterial embolism distal cyst segmental and subsegmental arteries of the posterior basal segment right and left lower lobes no visible central pulmonary embolism/pulmonary arterial thrombus. No associated right ventricular strain. Aorta: The thoracic aorta is nonaneurysmal. No visible intimal flap or dissection. Lungs: Geographic subtle ground-glass interstitial lung disease which could reflect interstitial edema and/or interstitial pneumonitis. Also suspect a component of mild air trapping of COPD/chronic bronchitis. Pleural space: Unremarkable. No pneumothorax. No pleural effusion. Heart: Cardiomegaly. No visible pericardial effusion. Lymph nodes: No visible active mediastinal or hilar lymphadenopathy. Liver: Diffuse fatty infiltration of the liver with hepatomegaly. Gallbladder and bile ducts: Status post cholecystectomy. Spleen: Splenomegaly. Bones/joints: No visible active or acute osseous abnormality.. Soft tissues: Marked obesity. Other findings: Marked increase in quantum mottle artifact which degrades image quality in detail assessment. In CT/CT angio chest PE protcl [id number] IMPRESSION: 1. Positive for nonocclusive pulmonary arterial thrombus/pulmonary arterial embolism bilateral lower lobe distal segmental and subsegmental vessels without associated right ventricular strain. Low pulmonary embolism load. 2. Geographic subtle ground-glass interstitial lung disease which could reflect interstitial edema and/or interstitial pneumonitis. 3. Also suspect a component of mild air trapping of COPD/chronic bronchitis. 4. Other nonurgent, nonemergent, chronic, and age related findings as detailed in text above. Radiation Dose CTDIVOL = (mGy): DLP = 649.35 (mGy-cm)
--- NOTE | 2020-06-07 21:08 | W.ED.SOB ---
HPI - SOB/Dyspnea General: Chief Complaint: Shortness of Breath/Dyspnea Stated Complaint: HAVING TROUBLE BREATHING Time Seen by Provider: 06/07/20 20:40 Source: patient Mode of arrival: ambulatory Limitations: no limitations History of Present Illness: HPI Narrative: 44-year-old female who was admitted and intubated at the end of April with Covid. Patient's been cleared from that but states she is continued to have some wheezing and shortness of breath. She denies any worsening or improving factors currently. She has had no fever. Patient is currently 93% on room air in her room. Associated symptoms: Deny abdominal pain, chest pain, fever(s), nausea or vomiting Review of Systems Const: Denies: fever(s), chills, body aches or change in appetite Eyes: Denies: blurry vision or eye discomfort ENMT: Denies: throat pain or dental pain Card: Denies: chest pain Resp: Reports: dyspnea and wheezing GI: Denies: abdominal pain, nausea, vomiting or diarrhea : Denies: dysuria Musc: Denies: neck pain or back pain Skin/Breast: Denies: rash Neuro: Denies: headache(s) Psych: Denies: depression Kanu/Lymph: Denies: easy bruising All/Imm: Denies: urticaria PFSH ED PFSH: Medical History Anxiety Chiari malformation Chronic migraine Chronic pain Diabetes mellitus Diverticulitis Dysphonia Juvencio-Danlos syndrome Encounter for long-term use of opiate analgesic Generalized anxiety disorder Hip pain, bilateral Major depressive disorder, recurrent, moderate Neck pain Opioid contract exists Physical deconditioning Pneumonia due to COVID-19 virus TMJ (dislocation of temporomandibular joint) Surgical History History of foot surgery S/P carpal tunnel release S/P section S/P cholecystectomy 02/09/2019 [place] teeth extracted Family History Father Hypertension Grandmother Family history of premature coronary artery disease Social History Smoking and tobacco status: never smoked Alcohol intake: never History of recent travel: No Female Reproductive History: Date of last menstrual period: 06/02/20 Physical Exam Const: COMMON NORMALS: no acute distress, patient oriented x3 and healthy appearing HENMT: COMMON NORMALS: normocephalic and atraumatic HEAD & SCALP: normocephalic and atraumatic Eye: COMMON NORMALS: Equal, round and reactive pupils present and EOMs intact bilaterally PUPIL: Yes Equal, round and reactive pupils present Neck/C-Spine: COMMON NORMALS: full ROM and supple Chest: COMMONS NORMALS: normal inspection of the chest and normal palpation of entire chest wall Resp: COMMON NORMALS: normal respiratory effort, No retractions, No use of accessory muscles and clear to auscultation bilaterally AUSCULTATION: clear to auscultation bilaterally and wheezes Cardio: COMMON NORMALS: regular rate, regular rhythm and No murmurs present (Cardio) RATE: regular rate RHYTHM: regular rhythm GI: COMMON NORMALS: Normal to inspection, nondistended, normoactive bowel sounds present, Soft to palpation, non-tender and no masses PALPATION: Yes Soft to palpation Extremity: COMMON NORMALS: normal to inspection and full ROM Neuro: COMMON NORMALS: patient oriented x3, moves all extremities and no focal motor deficits Psych: COMMON NORMALS: mental status grossly normal, Normal thought process present and cooperative THOUGHT PROCESS: Normal thought process present Skin: COMMON NORMALS: no rashes or lesions noted and no wounds GENERAL SKIN EXAM: no rashes or lesions noted Course Vital Signs: Vital signs: Vital Signs Temperature 98.5 F 06/07/20 17:36 Pulse Rate 77 06/07/20 21:40 Respiratory Rate 18 06/07/20 21:30 Blood Pressure 112/78 06/07/20 21:10 Pulse Oximetry 93 06/07/20 21:30 MDM - SOB/Dyspnea MDM Narrative: Medical decision making narrative: Presents for shortness of breath does have small pulmonary emboli's. Anytime she ambulates she does drop into the 80s. I spoke to hospitalist and will admit at this time for observation. Patient given Lovenox here. Lab Data: Labs: Lab Results 06/07/20 06/07/20 06/07/20 Range/Units 18:34 20:30 20:30 WBC 5.7 (4.0-10.0) 10^3/ uL RBC 4.09 L (4.1-5.3) 10^6/u L Hgb 11.0 L (11.5-15.3) g/dL Hct 37.3 (37.0-47.0) % MCV 91.2 (81-99) fL MCH 26.9 L (28.0-34.0) pg MCHC 29.5 L (30.0-36.0) g/dL RDW 15.7 H (12.1-15.1) % Plt Count 214 (130-400) 10^3/c mm MPV 9.9 (7.4-10.4) fL Neut % (Auto) 37.6 % Lymph % (Auto) 50.6 % [place] % (Auto) 9.4 % Eos % (Auto) 1.2 % Baso % (Auto) 0.9 % Neut # (Auto) 2.15 (1.8-7.7) 10^3/u L Lymph # (Auto) 2.9 (0.8-4.8) 10^3/u L [place] # (Auto) 0.5 (0.2-0.9) 10^3/u L Eos # (Auto) 0.1 (0.0-0.8) 10^3/u L Baso # (Auto) 0.1 (0.0-0.1) 10^3/u L Nucleated RBC % (a uto) 0 % Nucleated RBCs # 0.0 /100WBC PT 12.50 (12.1-14.9) SECO NDS INR 0.91 (0.8-1.2) D-Dimer 0.74 H (0-0.59) ug/mIFE U Specimen Type Arterial Sample Site Radial, right ABG pH 7.39 (7.35-7.45) ABG pCO2 42.3 (35-45) mmHg ABG pO2 64.0 L (80.0-100.0) mmH g ABG HCO3 25.5 (22-26) mmol/L ABG Base Excess 0.4 (-2.0-2.0) mmol/ L Clint Test Pos Hematocrit 33.3 L (37-47) % Hgb O2 Saturation 90.0 L (95-100) % Carboxyhemoglobin 2.0 (0.4-20.1) %THgb Methemoglobin 0.7 (0.4-1.5) % Total Hemoglobin 10.9 L (12-16) g/dL O2 Delivery Device Room air FiO2 21.0 % Distance Learning Unit Leader ID [place] Sodium (136-145) mmol/L Potassium (3.5-5.1) mmol/L Chloride (98-107) mmol/L Carbon Dioxide (22-29) mmol/L Anion Gap (5-19) BUN (6-20) mg/dL Creatinine (0.5-0.9) mg/dL GFR Calculation (90-130) mL/min Glucose (65-115) mg/dL Calculated Osmolal ity (285-295) mOsm/k g Calcium (8.5-10.5) mg/dL Total Bilirubin (0.15-1.2) mg/dL AST (0-32) U/L ALT (0-33) U/L Alkaline Phosphata se (35-105) IU/L NT-Pro-B Natriuret Pep (0-125) pg/mL Total Protein (6.6-8.7) g/dL Albumin (3.5-5.2) g/dL Globulin (1.3-4.6) g/dL 06/07/20 Range/Units 20:30 WBC (4.0-10.0) 10^3/ uL RBC (4.1-5.3) 10^6/u L Hgb (11.5-15.3) g/dL Hct (37.0-47.0) % MCV (81-99) fL MCH (28.0-34.0) pg MCHC (30.0-36.0) g/dL RDW (12.1-15.1) % Plt Count (130-400) 10^3/c mm MPV (7.4-10.4) fL Neut % (Auto) % Lymph % (Auto) % [place] % (Auto) % Eos % (Auto) % Baso % (Auto) % Neut # (Auto) (1.8-7.7) 10^3/u L Lymph # (Auto) (0.8-4.8) 10^3/u L [place] # (Auto) (0.2-0.9) 10^3/u L Eos # (Auto) (0.0-0.8) 10^3/u L Baso # (Auto) (0.0-0.1) 10^3/u L Nucleated RBC % (a uto) % Nucleated RBCs # /100WBC PT (12.1-14.9) SECO NDS INR (0.8-1.2) D-Dimer (0-0.59) ug/mIFE U Specimen Type Sample Site ABG pH (7.35-7.45) ABG pCO2 (35-45) mmHg ABG pO2 (80.0-100.0) mmH g ABG HCO3 (22-26) mmol/L ABG Base Excess (-2.0-2.0) mmol/ L Clint Test Hematocrit (37-47) % Hgb O2 Saturation (95-100) % Carboxyhemoglobin (0.4-20.1) %THgb Methemoglobin (0.4-1.5) % Total Hemoglobin (12-16) g/dL O2 Delivery Device FiO2 % Distance Learning Unit Leader ID Sodium 142 (136-145) mmol/L Potassium 4.0 (3.5-5.1) mmol/L Chloride 104 (98-107) mmol/L Carbon Dioxide 28 (22-29) mmol/L Anion Gap 14.0 (5-19) BUN 7 (6-20) mg/dL Creatinine 0.7 (0.5-0.9) mg/dL GFR Calculation 90.5 (90-130) mL/min Glucose 111 (65-115) mg/dL Calculated Osmolal ity 293 (285-295) mOsm/k g Calcium 9.3 (8.5-10.5) mg/dL Total Bilirubin 0.4 (0.15-1.2) mg/dL AST 23 (0-32) U/L ALT 18 (0-33) U/L Alkaline Phosphata se 71 (35-105) IU/L NT-Pro-B Natriuret Pep 357 H (0-125) pg/mL Total Protein 6.3 L (6.6-8.7) g/dL Albumin 3.8 (3.5-5.2) g/dL Globulin 2.5 (1.3-4.6) g/dL Imaging Data^: CXR: Attestation: I personally reviewed and interpreted this imaging study as follows: My impression: No acute abnormality CT Chest: Radiologist's impression: [facility] [address] [place] [address] CT Scan Report Signed Patient: Carmen Hooper Unit #: [id number] : 1975 Age/Sex: 44 / F ADM Date: 06/07/20 Loc: ER Room/Bed: Attending Dr: Ordering Provider/Ordering MD: Raimundo Menjivar MD Date of Service: 06/07/20 Procedure(s): CT angio chest PE protcl [id number] Accession Number(s): [id number] Report Number: [id number] PROCEDURE INFORMATION: Exam: CT Angiography Chest With Contrast Exam date and time: 06/07/2020 9:34 PM Age: 44 years old Clinical indication: Shortness of breath; Prior surgery; Surgery type: Gb; Additional info: Dyspnea TECHNIQUE: Imaging protocol: Computed tomographic angiography of the chest with intravenous contrast. 3D rendering (Not supervised by radiologist): MIP and/or 3D reconstructed images were created by the technologist. Radiation optimization: All CT scans at this facility use at least one of these dose optimization techniques: automated exposure control; mA and/or kV adjustment per patient size (includes targeted exams where dose is matched to clinical indication); or iterative reconstruction. Contrast material: OMNI 350; Contrast volume: 87 ml; Contrast route: INTRAVENOUS (IV); COMPARISON: CT angio chest PE protcl [id number] 05/03/2020 10:14 AM RADIATION DOSE METRICS: Total DLP (mGy-cm): 649.35 FINDINGS: Pulmonary arteries: Positive for nonocclusive pulmonary arterial thrombus/pulmonary arterial embolism distal cyst segmental and subsegmental arteries of the posterior basal segment right and left lower lobes no visible central pulmonary embolism/pulmonary arterial thrombus. No associated right ventricular strain. Aorta: The thoracic aorta is nonaneurysmal. No visible intimal flap or dissection. Lungs: Geographic subtle ground-glass interstitial lung disease which could reflect interstitial edema and/or interstitial pneumonitis. Also suspect a component of mild air trapping of COPD/chronic bronchitis. Pleural space: Unremarkable. No pneumothorax. No pleural effusion. Heart: Cardiomegaly. No visible pericardial effusion. Lymph nodes: No visible active mediastinal or hilar lymphadenopathy. Liver: Diffuse fatty infiltration of the liver with hepatomegaly. Gallbladder and bile ducts: Status post cholecystectomy. Spleen: Splenomegaly. Bones/joints: No visible active or acute osseous abnormality.. Soft tissues: Marked obesity. Other findings: Marked increase in quantum mottle artifact which degrades image quality in detail assessment. In CT/CT angio chest PE protcl [id number] IMPRESSION: 1. Positive for nonocclusive pulmonary arterial thrombus/pulmonary arterial embolism bilateral lower lobe distal segmental and subsegmental vessels without associated right ventricular strain. Low pulmonary embolism load. 2. Geographic subtle ground-glass interstitial lung disease which could reflect interstitial edema and/or interstitial pneumonitis. 3. Also suspect a component of mild air trapping of COPD/chronic bronchitis. 4. Other nonurgent, nonemergent, chronic, and age related findings as detailed in text above. EKG Data^: EKG 1: Attestation: I personally reviewed and interpreted this EKG as follows: EKG Interpretation Date: 06/07/20 EKG interpretation time: 20:52 Interpretation: Normal sinus rhythm heart rate [address] or T wave abnormalities QRS 80 QTC 411 Discharge Plan Discharge Patient Disposition: Admitted As Inpatient Clinical Impression: Pulmonary embolism Qualifiers: Pulmonary embolism type: unspecified Chronicity: acute Acute cor pulmonale presence: without acute cor pulmonale Qualified Code(s): I26.99 - Other pulmonary embolism without acute cor pulmonale Condition: Stable Coding Level of Care Code ED Field Tax Auditor for g Fwd Exam Comprehensive
[2020-06-07 21:13] LABS: Alanine Aminotransferase 18 U/L (0-33); Albumin Level 3.8 g/dL (3.5-5.2); Alkaline Phosphatase 71 IU/L (35-105); Aspartate Amino Transferase 23 U/L (0-32); Blood Urea Nitrogen 7 mg/dL (6-20); Calcium 9.3 mg/dL (8.5-10.5); Carbon Dioxide 28 mmol/L (22-29); Chloride 104 mmol/L (98-107); Globulin 2.5 g/dL (1.3-4.6); Glomerular Filtration Rate 90.5 mL/min (90-130); Glucose 111 mg/dL (65-115); NT Pro B Type Natriuretic Pept 357 pg/mL (0-125); Osmolality Calculated 293 mOsm/kg (285-295); Sodium 142 mmol/L (136-145); Total Bilirubin 0.4 mg/dL (0.15-1.2); Total Protein 6.3 g/dL (6.6-8.7)
[2020-06-07] MEDS: ipratropium-albuterol 3 mL Neb INHALATION (21:30)
[2020-06-07] MEDS: iohexol 350 mg/mL 100 mL Btl IV (22:04)
[2020-06-07] MEDS: enoxaparin 100 mg/mL Syringe SUBCUT (22:39)
--- NOTE | 2020-06-07 23:31 | P.HP_ITS ---
Providers/Chief Complaint Admitting Physician: Kasey Sanchez MD Primary Care Provider: Chano Renee DO Chief Complaint: HAVING TROUBLE BREATHING History of Present Illness Carmen Hooper is a 44 year old female who contracted COVID-19 viral pneumonia last month, was sent to [facility] after intubation in [place] [facility] [place], got treated with dexamethasone, convalescent plasma and antiviral, she was intubated for 7 days, after extubation she was experiencing some dysphonia, was discharged back to us on 05/17 after stabilization, she went home on Levaquin antibiotic for UTI, she did not require oxygen at that time coming in today for chief complaint of worsening shortness of breath. Patient is stating that in last few days she has been experiencing shortness of breath mainly on exertion, her O2 saturation would stay normal at rest but drops down to 80% on ambulation, she has not noticed any fever, sputum production, chest pain, wheezing, rhonchi, aspiration on food. Her voice is getting better. Because of worsening dyspnea she decided to come to the hospital for the evaluation. In the ED she was diagnosed with pulmonary embolism with small clot burden without right heart strain, she required oxygen on ambulation however was saturating 90 to 92% on room air at rest, she has been given therapeutic dose of Lovenox in the ER, at the time of evaluation she was eating Castillo's meal, she was not in any active distress, saturating 90% on room air Review of Systems Const: Reports: fatigue; Denies: fever(s) Eyes: Denies: change in vision ENMT: Denies: throat pain Card: Reports: dyspnea on exertion; Denies: chest pain Resp: Reports: dyspnea GI: Denies: abdominal pain : Denies: flank pain Musc: Denies: neck pain Skin/Breast: Denies: rash Neuro: Denies: headache(s) Psych: Reports: anxiety, depression and mood swings Endo: Denies: polyuria Kanu/Lymph: Denies: easy bruising All/Imm: Denies: urticaria Medications/Allergies Home Medications Medication Instructions Recorded Confirmed Last Taken Type acetaminophen 500 mg capsule 500 mg PO Q4H PRN 09/05/19 05/29/20 01/19/20 History chlorpheniramine maleate 4 mg 4 mg PO DAILY tab 09/05/19 05/29/20 02/24/20 History tablet cranberry extract 200 mg capsule 200 mg PO DAILY 09/05/19 05/29/20 02/24/20 History rizatriptan 10 mg tablet 10 mg PO DAILY PRN 09/05/19 05/29/20 01/19/20 History melatonin 3 mg capsule 6 mg PO BEDTIME PRN cap 09/06/19 05/29/20 01/19/20 Histo ry omeprazole 20 mg capsule,delayed 20 mg PO DAILY 03/05/20 05/29/20 Unknown History release bupropion HCl 300 mg 24 hr tablet, 300 mg PO QAM #30 tab 03/16/20 05/29/20 Unknown Rx extended release sertraline 100 mg tablet 200 mg PO DAILY #60 tab 03/16/20 05/29/20 Unknown Rx albuterol sulfate 1 puff INHALATION QID PRN 05/03/20 05/29/20 Unknown History metoprolol succinate 50 mg 50 mg PO BID #60 tab 05/04/20 05/29/20 Unknown Rx tablet,extended release 24 hr Zofran 4 mg PO Q6H PRN 05/16/20 05/29/20 Unknown History buspirone 15 mg tablet 15 mg PO BID PRN 30 Days #60 tab 05/29/20 05/29/20 Unknown Rx cyclobenzaprine 10 mg tablet 20 mg PO BID PRN #120 tab 05/29/20 05/29/20 Unknown Rx gabapentin 800 mg tablet 800 mg PO Q6H 30 Days #120 tab 05/29/20 05/29/20 Unkno wn Rx hydrocodone 10 mg-acetaminophen 1 tab PO Q6H PRN 30 Days #120 tab 05/29/20 05/29/20 Unknown Rx 325 mg tablet hydrocodone 10 mg-acetaminophen 1 tab PO QID 30 Days #120 tab 05/29/20 05/29/20 Unknown Rx 325 mg tablet morphine 15 mg tablet,extended 15 mg PO Q12H 30 Days #60 tab 05/29/20 05/29/20 Unknown Rx release morphine 15 mg tablet,extended 15 mg PO Q12H 30 Days #60 tab 05/29/20 05/29/20 Unknown Rx release Allergies Allergy/AdvReac Type Severity Reaction Status Date / Time metoclopramide [From Reglan] Allergy shortness Verified 05/29/20 14:53 of breath promethazine [From Phenergan] Allergy shortness Verified 05/29/20 14:53 of breath PFSH Acute PFSH: Medical History Anxiety Chiari malformation Chronic migraine Chronic pain Diabetes mellitus Diverticulitis Dysphonia Juvencio-Danlos syndrome Encounter for long-term use of opiate analgesic Generalized anxiety disorder Hip pain, bilateral Major depressive disorder, recurrent, moderate Neck pain Opioid contract exists Physical deconditioning Pneumonia due to COVID-19 virus TMJ (dislocation of temporomandibular joint) Surgical History History of foot surgery S/P carpal tunnel release S/P section S/P cholecystectomy 02/09/2019 [place] teeth extracted Family History Father Hypertension Grandmother Family history of premature coronary artery disease Social History Smoking and tobacco status: never smoked Alcohol intake: never History of recent travel: No Female Reproductive History: Date of last menstrual period: 06/02/20 Vitals/I&O/Wt Last Vital Signs Temp 98.5 F 06/07/20 17:36 Pulse 91 06/07/20 23:10 Resp 16 06/07/20 23:10 BP 122/93 06/07/20 23:10 Pulse Ox 94 06/07/20 23:10 Weight last 48 hrs Weight 115.666 kg Physical Exam Narrative: EXAM NARRATIVE: Obese female When I went into the room patient was eating by Castillo's meal No active respiratory distress Was saturating 90% on room air No conversational dyspnea Morbidly obese female, S1, S2 no tachycardia or signs of heart failure Abdomen soft distended bowel sound present Lungs are clear to auscultation no active wheezing or crackles or stridor Neurologically no focal deficit Appears anxious Skin does not show any ulcer gangrene or edema EOMI, PERRLA Data : 06/07/20 20:30 06/07/20 20:30 A&P Assessment and plan (1) Pulmonary embolism: Status: Acute Qualifiers: Acute cor pulmonale presence: without acute cor pulmonale Chronicity: acute Pulmonary embolism type: unspecified Qualified Code(s): I26.99 - Other pulmonary embolism without acute cor pulmonale (2) Dyspnea on exertion: Status: Acute (3) Type 2 diabetes mellitus: Status: Acute Qualifiers: Diabetes mellitus [facility] insulin use: without extermination supervisor use Diabetes mellitus complication status: without complication Qualified Code(s): E11.9 - Type 2 diabetes mellitus without complications (4) Dysphonia: Status: Acute Additional A&P Information Acute pulmonary embolism, symptomatic No right heart strain, no active chest pain Saturating well on room air, requiring oxygen supplementation on ambulation Would require home O2 evaluation Received therapeutic dose of Lovenox in the ER, I would start Eliquis 10 mg twice a day Lower extremity Dopplers ordered BNP less than 400, troponin not significantly high Type 2 diabetes: Consistent carb diet, moderate sliding scale Dysphonia: No active stridor, Developed dysphonia after intubation Gradual improvement No active distress Full code Consistent carb diet DVT prophylaxis not needed currently on therapeutic dose of anticoagulant agent Attestations Medical Necessity Statement*: For symptomatic PE needs overnight monitoring need home O2 evaluation, anticipating discharge in less than 48 hours Time Spent in Patient Care: (>than 50% of time spent in counselling and/or direct pt care on unit) . 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
[2020-06-08] VITALS (8 sets, daily range): BP systolic 94–114; BP diastolic 64–76; PULSE 93–100; RESP 18; TEMP 36.8–37.3; O2SAT 88–97
[2020-06-08] MEDS: ipratropium-albuterol 3 mL Neb INHALATION (00:54)
[2020-06-08] MEDS: gabapentin 400 mg Capsule 800 MG PO ×2 (03:07→09:02)
[2020-06-08] MEDS: morphine ER (12 HR) 15 mg Tablet PO ×2 (03:08→12:41)
[2020-06-08] MEDS: buPROPion XL (24 HR) 300 mg Tablet PO (05:51)
[2020-06-08] MEDS: HYDROcodone-acetaminophen 10-325 mg Tablet 1 TAB PO (09:02)
[2020-06-08] MEDS: sertraline 100 mg Tablet 200 MG PO (09:02)
[2020-06-08] MEDS: apixaban 5 mg Tablet 10 MG PO (09:02)
[2020-06-08] MEDS: pantoprazole DR 40 mg Tablet PO (09:02)
[2020-06-08] MEDS: metoprolol succinate ER (24 HR) 50 mg Tablet PO (09:03)
--- NOTE | 2020-06-08 11:01 | P.DS_ITS ---
Discharge Providers Date of Admission: 06/07/20 22:29 Date of Discharge: June 08, 2020 Attending Provider at Admission: Kasey Sanchez MD Attending Provider at Discharge: Jose Christiansen MD Primary Care Provider: Chano Renee DO Diagnoses at Discharge Discharge Diagnosis (1) Pulmonary embolism: Status: Acute Qualifiers: Acute cor pulmonale presence: without acute cor pulmonale Chronicity: acute Pulmonary embolism type: unspecified Qualified Code(s): I26.99 - Other pulmonary embolism without acute cor pulmonale (2) Dyspnea on exertion: Status: Acute (3) Type 2 diabetes mellitus: Status: Acute Qualifiers: Diabetes mellitus assisted insulin use: without equipment operator intermodal yard use Diabetes mellitus complication status: without complication Qualified Code(s): E11.9 - Type 2 diabetes mellitus without complications (4) Dysphonia: Status: Acute (5) Respiratory failure with hypoxia: Status: Acute Problem details: Present on admission. Reason for Visit Reason for Visit: HAVING TROUBLE BREATHING Hospital Course Discharge Summary: Patient presents with shortness of breath several weeks after she was treated for COVID-19. She was diagnosed with PE and started on Eliquis. This morning patient reports feeling much better and strong enough to be dismissed home. Reports that she previously has been treated with Eliquis several years ago when she developed DVT/PE related to contraceptives. She did okay up until this episode. She is interested in seeing hall coordinator and I will request outpatient follow-up. We have discussed regarding importance of taking Eliquis 10 mg twice daily for first 1 week followed by 5 mg twice daily. She felt comfortable. She qualified for 2 L of oxygen with exertion and this will be prescribed. She otherwise denies shortness of breath and chest pain at rest this morning. Denies abdominal pain. Patient does not smoke. She denies cough or GI symptoms this morning. Physical Exam Const: COMMON NORMALS: no acute distress and patient oriented x3 Resp: COMMON NORMALS: normal respiratory effort and clear to auscultation bilaterally AUSCULTATION: clear to auscultation bilaterally Cardio: COMMON NORMALS: regular rate, regular rhythm and S2 normal heart sound present RATE: regular rate RHYTHM: regular rhythm HEART SOUNDS: S2 normal heart sound present OTHER: No lower extremity edema GI: COMMON NORMALS: Normal to inspection, nondistended, normoactive bowel sounds present, Soft to palpation and non-tender PALPATION: Yes Soft to palpation Neuro: COMMON NORMALS: patient oriented x3 and no focal motor deficits Discharge Data Data Completed and Pending: Completed Studies During Hospitalization Category Date Time Status CT angio chest PE protcl [id number] Urge nt Cat Scan 06/07/20 20:58 Completed XR chest 1V justino ble [id number] Urgent Exams 06/07/20 18:19 [place] [id number] Routin e Ultrasound 06/08/20 23:56 Completed Labs from last 24 hours 06/07/20 06/07/20 06/07/20 20:30 20:30 20:30 WBC 5.7 RBC 4.09 L Hgb 11.0 L Hct 37.3 MCV 91.2 MCH 26.9 L MCHC 29.5 L RDW 15.7 H Plt Count 214 MPV 9.9 Neut % (Auto) 37.6 Lymph % (Auto) 50.6 [place] % (Auto) 9.4 Eos % (Auto) 1.2 Baso % (Auto) 0.9 Neut # (Auto) 2.15 Lymph # (Auto) 2.9 [place] # (Auto) 0.5 Eos # (Auto) 0.1 Baso # (Auto) 0.1 Nucleated RBC % (a uto) 0 Nucleated RBCs # 0.0 PT 12.50 INR 0.91 D-Dimer 0.74 H Specimen Type Sample Site ABG pH ABG pCO2 ABG pO2 ABG HCO3 ABG Base Excess Clint Test Hematocrit Hgb O2 Saturation Carboxyhemoglobin Methemoglobin Total Hemoglobin O2 Delivery Device FiO2 Director Radio News ID Sodium 142 Potassium 4.0 Chloride 104 Carbon Dioxide 28 Anion Gap 14.0 BUN 7 Creatinine 0.7 GFR Calculation 90.5 Glucose 111 Calculated Osmolal ity 293 Calcium 9.3 Total Bilirubin 0.4 AST 23 ALT 18 Alkaline Phosphata se 71 NT-Pro-B Natriuret Pep 357 H Total Protein 6.3 L Albumin 3.8 Globulin 2.5 06/07/20 18:34 WBC RBC Hgb Hct MCV MCH MCHC RDW Plt Count MPV Neut % (Auto) Lymph % (Auto) [place] % (Auto) Eos % (Auto) Baso % (Auto) Neut # (Auto) Lymph # (Auto) [place] # (Auto) Eos # (Auto) Baso # (Auto) Nucleated RBC % (a uto) Nucleated RBCs # PT INR D-Dimer Specimen Type Arterial Sample Site Radial, right ABG pH 7.39 ABG pCO2 42.3 ABG pO2 64.0 L ABG HCO3 25.5 ABG Base Excess 0.4 Clint Test Pos Hematocrit 33.3 L Hgb O2 Saturation 90.0 L Carboxyhemoglobin 2.0 Methemoglobin 0.7 Total Hemoglobin 10.9 L O2 Delivery Device Room air FiO2 21.0 Director Radio News ID [place] Sodium Potassium Chloride Carbon Dioxide Anion Gap BUN Creatinine GFR Calculation Glucose Calculated Osmolal ity Calcium Total Bilirubin AST ALT Alkaline Phosphata se NT-Pro-B Natriuret Pep Total Protein Albumin Globulin Vitals: Last Vital Signs Temp 98.6 F 06/08/20 07:48 Pulse 96 06/08/20 08:19 Resp 18 06/08/20 08:19 BP 94/64 06/08/20 07:48 Pulse Ox 94 06/08/20 08:19 Discharge Plan Discharge Patient Disposition: Home Condition: Stable Prescriptions: New Eliquis 5 mg Tablet 10 mg PO BID Qty: 74 RF: 0 Continued omeprazole 20 mg capsule,delayed release(DR/EC) 20 mg PO DAILY RF: 0 Wellbutrin XL 300 mg tablet extended release 24 hr 300 mg PO QAM Qty: 30 RF: 2 sertraline 100 mg tablet 200 mg PO DAILY Qty: 60 RF: 2 rizatriptan 10 mg tablet 10 mg PO DAILY PRN (Reason: Migraine Headache) RF: 0 cranberry extract 200 mg capsule 200 mg PO DAILY RF: 0 acetaminophen 500 mg capsule 500 mg PO Q4H PRN (Reason: Pain) RF: 0 chlorpheniramine maleate [Allergy (chlorpheniramine)] 4 mg tablet 4 mg PO DAILY RF: 0 melatonin 3 mg capsule 6 mg PO BEDTIME PRN (Reason: Insomnia) RF: 0 hydrocodone-acetaminophen 10-325 mg tablet 1 tab PO Q6H PRN (Reason: Pain) 30 Days Qty: 120 RF: 0 morphine 15 mg tablet extended release 15 mg PO Q12H 30 Days Qty: 60 RF: 0 gabapentin 800 mg tablet 800 mg PO Q6H 30 Days Qty: 120 RF: 1 cyclobenzaprine 10 mg tablet 20 mg PO BID PRN (Reason: muscle spasm) Qty: 120 RF: 1 buspirone 15 mg tablet 15 mg PO BID PRN (Reason: anxiety) 30 Days Qty: 60 RF: 1 metoprolol succinate 50 mg tablet extended release 24 hr 50 mg PO BID Qty: 60 RF: 5 albuterol sulfate 90 mcg/actuation Hfa Aerosol Inhaler 1 puff INHALATION QID PRN (Reason: Shortness Of Breath) RF: 0 ondansetron HCl [Zofran] 4 mg Tablet 4 mg PO Q6H PRN (Reason: Nausea) RF: 0 Discharge Orders: Discharge Order (Routine); Ordered 06/08/20 Ordered By: Jose Christiansen Other Ambulatory Orders: DME: Oxygen (Order) Location: None Selected Ordered By: Jose Christiansen Referrals: Chano Renee DO [Primary Care Provider] - 4-7 days Cesar Gurrola MD [Hospitalist] - 1 week Discharge Diet: Advance as tolerated Discharge Activity: Increase activity as tolerated Activity Restrictions/Additional Instructions: Please call your doctor or present to emergency department if your condition worsens or you develop diarrhea, Lightheadedness, fatigue or see blood in your stool or black stool. Please keep blood pressure and heart rate log 3 times daily to present to primary care physician next visit for medication adjustment. Discharge Attestations Time Spent in Discharge Care*: greater than 30 min Status at Discharge: Cognitive status at discharge: cognitively intact , Behavioral status at discharge: cooperative , Quality Metrics Clinical Quality Measures During this hospital stay, did patient experience: VTE Contraindication to Overlap Therapy: Overlap treatment not indicated VTE Discharge Education: Education about anticoagulant therapy/Care Notes given and Follow-up arranged Deep Vein Thrombosis/Pulmonary Embolism Present on Admission: Yes Coding Level of Care Code Acute Manager [facility] for [facility] Diagnoses Pulmonary embolism I26.99 Acute cor pulmonale presence: without acute cor pulmonale Chronicity: acute Pulmonary embolism type: unspecified Dyspnea on exertion R06.00 Type 2 diabetes mellitus E11.9 Diabetes mellitus equipment 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
--- NOTE | 2020-06-08 13:14 | PC.NURSE ---
Addendum entered by Pebbles Steele RN 06/08/20 14:58: Please note this nurse called to update patient of dosing instructions as well. She was able to repeat back instructions. She verbalized understanding. Original Note: IV DC'd , cath intact, bleeding controlled with 2x2's and coban, DC instructions given, voiced full understanding, to main entrance via wheelchair to private vehicle with zero difficulty
--- NOTE | 2020-06-08 14:54 | PC.SOCIAL ---
pharmacy called to clarify Eliquis dose. Spoke with Dr Christiansen she is to have 10mg BID to complete 7 days then transition to 5mg BID for remainder of 30 day supply. Patient had one dose of 10mg this am here. She will need 13 more doses to complete 7 days of 10mg BID then 5mg BID for remainder 30 days. Total of 72 tabs. Updated [facility] pharmacy.
--- NOTE | 2020-06-08 23:56 | USCV_ITS ---
Carmen Hooper Age: 44 Gender: F : 1975 Exam Date: 06/08/2020 09:07 Ordering Phys: Kasey Sanchez MD Technologist: JAIRO DAVIS Exam Location: [facility] Indication: PE PROCEDURES: Venous duplex imaging was performed in bilateral lower extremities. The following venous structures were evaluated: common femoral vein, profunda vein, proximal portion of the greater saphenous vein, superficial femoral vein, and the popliteal vein. In addition, the posterior tibial and peroneal trunk were evaluated. Serial compression, augmentation maneuvers, and spectral Doppler flow evaluation were performed. FINDINGS: Normal 2-D Doppler and augmentation and compressibility throughout the lower extremity venous structures. Additional imaging through the proximal calf veins also reveals no thrombus. Limited evaluation of the greater saphenous vein is patent with no thrombus. CONCLUSIONS No DVT bilateral lower extremities. Dr. Aliyah Aiken DO (Electronically Signed) Final Date: 08 June 2020 09:42 S
== END 2020-06-08 13:14 | disposition home or self-care (01) ==
LOC: ER 22:30 → MEDSURG 23:06
PROVIDERS: Emergency Medicine; Admitting Provider Internal Medicine; Emergency Provider Internal Medicine; PCP Family Medicine; Visit Provider Internal Medicine
DX: I26.99 Other pulmonary embolism without acute cor pulmonale (principal); R49.0 Dysphonia; J96.91 Respiratory failure, unspecified with hypoxia; E11.9 Type 2 diabetes mellitus without complications; Z23 Encounter for immunization; Z79.891 Long term (current) use of opiate analgesic; F41.9 Anxiety disorder, unspecified; F33.9 Major depressive disorder, recurrent, unspecified; Z79.4 Long term (current) use of insulin
CPT/HCPCS: 12345; 36600; 71045; 71275; 80053; 82805; 83880; 85025; 85378; 85610; 90471; 90686; 93005; 93970; 94640; 96372; 96374; 96375; 99283; 99285; G0378; J1650; J2930; Q9967

== ENCOUNTER → 2020-06-13 13:13 | Outpatient (BNVA) | payer BC, MEDICAID, SELFPAY | PROVIDERS: PCP Family Medicine; Visit Provider Podiatrist Foot & Ankle Surgery | DX: S93.324A Dislocation of tarsometatarsal joint of right foot, initial encounter (principal) | CPT/HCPCS: 73630 ==

== ENCOUNTER → 2020-07-09 07:41 | Outpatient (BNVA) | payer BC, MEDICAID, SELFPAY | PROVIDERS: PCP Family Medicine; Visit Provider Nurse Practitioner | DX: F33.1 Major depressive disorder, recurrent, moderate (principal); F41.1 Generalized anxiety disorder | CPT/HCPCS: 99213 ==

== ENCOUNTER 2020-07-17 13:25 | Outpatient (CLI) | payer MEDICARE, MEDICAID, SELFPAY ==
--- NOTE | 2020-07-17 18:14 | ONC CON_ITS ---
Dr. Gurrola New Patient Note Patient: Carmen Hooper Unit #: [id number]: 1975 Dicatated By: Cesar Gurrola M.D.Date of Visit: Jul 17, 2020 Onc MED New Patient/Consult Referring Physician: Dr. APOLINAR RAYA MD Chief Complaint: Pulmonary embolism. History of Present Illness: This is a 44 year-old woman who is seen in regard to pulmonary embolism. On 04/26/2020 she was seen at the [facility] with a 1-week history of stuffy nose, sore throat, cough, and body aches. Her COVID-19 test was positive. She then presented to the emergency room on 05/03/2020 where she was found to be in respiratory distress, requiring intubation. She was then admitted to [facility] where she remained on a ventilator for 9 days. She was transferred back to [facility] on 05/15/2020, and she was able to be discharged home on 05/17/2020. On 06/07/2020 she returned to the emergency room complaining of shortness of breath. She was admitted to the hospital after her CT pulmonary angiogram confirmed the presence of nonocclusive pulmonary arterial thrombus/embolism involving the lower lobe distal segmental and subsegmental vessels. There was no associated right ventricular strain and overall she was felt to have a low pulmonary embolism burden. She was placed on anticoagulation with apixaban. Her lower extremity venous Doppler study showed no evidence for deep vein thrombosis. She completed a 7-day course of apixaban at 10 mg twice daily and had continued with 5 mg twice daily. Her past medical history is significant in that March 2016 she was admitted to the hospital with bilateral pulmonary emboli. At the time she had been on long-term hormonal therapy for polycystic ovarian syndrome. Her treatment at that time included a 6-month course of anticoagulation with apixaban. She also stopped the hormonal therapy. Her medical history is otherwise significant for hypertension, GERD, Chiari malformation, chronic migraine, and hemicrania continua. 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 She is a non-smoker. There is no family history for thromboembolism. She has been showing gradual improvement since her discharge from [facility]. She still has very limited activity, but her energy is improving. Her ECOG score is 2. She has good appetite. She does complain that she is thirsty all the time. She has no fever, night sweats, or hot flashes. She still has hoarseness, and she continues to have some shortness of breath and wheezing. She is on continuous oxygen. She has cough associated with phlegm in her throat. She sometimes has tightness in her chest. For 2 years she had been having ongoing problems with abdominal pain and diarrhea. She had a 60 pound weight loss during that time. The abdominal pain and diarrhea, though, seem to have resolved now. She currently has no GI or complaints. She has chronic musculoskeletal pain. The most significant is in her neck, shoulders, and hips. She also has chronic migraine and she has a daily headache associated with hemicrania continua. She sometimes has numbness/tingling. She says her anxiety and depression have been doing fairly good on her current medication. Past Medical History: Her medical history includes anxiety, Chiari malformation, chronic migraine, chronic musculoskeletal pain, COVID-19 virus infection, depression, Juvencio-Danlos syndrome, gastroesophageal reflux disease, hemicrania continua, hypertension, and polycystic ovarian syndrome. She has a history of pulmonary embolismin 2017. Past Surgical History: Her surgical/procedural history includes Caesarean section, wisdom teeth extraction, arthrodesis/fixation for right foot dislocation in 2019, cholecystectomy in 2019, and carpal tunnel release on the right in 2013. Medications: buPROPion HCl ER (XL) 1 Tablet (of 300 mg) Tablet SR 24 HR Oral daily, Claritin 1 Tablet (of 10 mg) Oral daily, Cyclobenzaprine HCl 4 Tablet (of 10 mg) Oral at bedtime, Eliquis 1 Tablet (of 5 mg) Oral daily, Gabapentin 1 Tablet (of 800 mg) Oral four times a day, HYDROcodone-Acetaminophen 1 Tablet (of 10-325 mg) Oral four times a day, Metoprolol Succinate ER 1 Tablet (of 50 mg) Tablet SR 24 HR Oral b.i.d., Morphine Sulfate 1 Tablet (of 15 mg) Oral b.i.d. Allergies: Metoclopramide HCl and Promethazine HCl. Social History: Ms. Hooper is . She is a non-smoker. She has had just very rare alcohol use. Family History: Both parents are living, father at age 74 and mother at age 63. He has high blood pressure and she has female issues . 2 brothers are in good health. She has 1 sister who has polycystic ovarian syndrome. Her paternal grandfather from heart attack associated with mouth cancer. Both grandmothers had heart disease and diabetes. There is no history of thromboembolism in the family. Review Of Symptoms: Constitutional - Her energy is improving, but she still has very limited activity. Her appetite is good. She does complain that she is thirsty all the time. She does not have fever, night sweats, or hot flashes. ECOG score is 2, Eyes - She has had some decline in visual acuity, but it is getting better, ENMT - She reports having hearing loss and tinnitus. She has seasonal, allergy related sinus symptoms. She has sore mouth and throat and she has been having hoarseness. No difficulty swallowing, Hematologic/Lymphatic - No abnormal bruising or bleeding, Respiratory - She has shortness of breath. She has wheezing with activity. She is on continuous oxygen. She has cough associated with phlegm in her throat. No pleuritic pain or hemoptysis, Cardiovascular - She has some tightness in her chest. No palpitations, Gastrointestinal - No nausea or vomiting. Her acid reflux is adequately managed with omeprazole. She is no longer having abdominal pain. No diarrhea or constipation. No blood in the stool or black stools, Genitourinary (F) - No dysuria or hematuria. No urinary frequency. No urgency or incontinence. Her menstrual periods are semiregular, Musculoskeletal - She has chronic musculoskeletal pain associated with her hypermobility (Ehler Danlos syndrome). The most significant is in her neck, shoulders, and hips, Integumentary - No skin rash or other skin changes, Neurologic - She has chronic headaches. She has dizziness. She sometimes has numbness/tingling, Psychiatric - She has anxiety and depression, but that has been doing fairly good on medication. She has trouble getting to sleep. Vital Signs: Performed on Jul 17, 2020 14:28: 5, 46.45 (HIGH), 2.17 sq.m, 63.00 in, 99 %, 78 /min, 24 /min, 95/59 mm(hg), 97.6 F (LOW), and 262.2 lbs (HIGH). Physical Examination: Constitutional - She appears somewhat weak generally, Eyes - Sclerae nonicteric. Conjunctivae clear, ENMT - No lesions noted in the oral cavity, Neck - No mass or thyromegaly, Hematologic/Lymphatic - No cervical, clavicular, or axillary adenopathy, Respiratory - Lungs sound clear with some decrease in air movement bilaterally, Cardiovascular - Heart rhythm is regular. There is no murmur, gallop, or rub noted, Abdomen - Soft and non-tender. Liver and spleen are not enlarged. There is no abdominal mass or ascites noted and there is no inguinal adenopathy, Back/Spine - No spine or CVA tenderness noted, Extremities - Slight edema. Dorsalis pedis pulses are palpable bilaterally, Integumentary - No rashes. No suspicious skin lesions noted, Neurologic - No focal neurologic deficits noted. Impression: 1. Patient recently hospitalized with her second episode of pulmonary embolism. Both episodes, however, appeared to have been provoked, the first having been associated with oral contraceptive use and the second with COVID-19 virus infection and immobility. 2. She is showing clinical improvement on anticoagulation with apixaban. Her other medical illnesses include: 3. Recent COVID-19 virus infection with associated respiratory failure, requiring intubation/mechanical ventilation. 4. She has a history of hypertension, but currently with low blood pressure. 5. GERD. 6. Chiari malformation. 7. Polycystic ovarian syndrome. 8. Hypermobility (Juvencio-Danlos syndrome). 9. Chronic musculoskeletal pain. 10. Chronic migraine. 11. Hemicrania continua. 12. Anxiety/depression. Plan: Patient is advised to continue anticoagulation for minimum of 6 months. I will plan to reevaluate at that time and determine then whether to stop anticoagulation or to continue apixaban at a maintenance dosage. At this point my inclination would be to stop it. I do not see any definite indication for thrombophilia evaluation, but that also will be considered at her follow-up visit. Signed By: Cesar Gurrola M.D. <<Signature on File>>
== END 2020-07-17 13:26 | disposition home or self-care (01) ==
LOC: ONCMED 13:29
PROVIDERS: PCP Family Medicine; Visit Provider Internal Medicine Medical Oncology
DX: I26.99 Other pulmonary embolism without acute cor pulmonale (principal); Z79.01 Long term (current) use of anticoagulants; Z86.19 Personal history of other infectious and parasitic diseases; Z86.79 Personal history of other diseases of the circulatory system; I95.9 Hypotension, unspecified; K21.9 Gastro-esophageal reflux disease without esophagitis; E28.2 Polycystic ovarian syndrome; Q79.62 Hypermobile Ehlers-Danlos syndrome; G89.29 Other chronic pain; M79.10 Myalgia, unspecified site; G43.009 Migraine without aura, not intractable, without status migrainosus; G44.51 Hemicrania continua; F41.8 Other specified anxiety disorders
CPT/HCPCS: 99204

== ENCOUNTER → 2020-08-03 09:20 | Outpatient (BNVA) | payer MEDICARE, MEDICAID, SELFPAY | PROVIDERS: PCP Family Medicine; Visit Provider Anesthesiology | DX: M54.2 Cervicalgia (principal); M54.9 Dorsalgia, unspecified; M25.551 Pain in right hip; M25.552 Pain in left hip; Z79.891 Long term (current) use of opiate analgesic | CPT/HCPCS: 99214 ==

== ENCOUNTER → 2020-09-19 11:24 | Outpatient (BNVA) | payer MEDICARE, MEDICAID, SELFPAY | PROVIDERS: PCP Family Medicine; Visit Provider Internal Medicine Pulmonary Disease | DX: Z20.822 Contact with and (suspected) exposure to COVID-19 (principal); R06.02 Shortness of breath | CPT/HCPCS: 87635 ==

== ENCOUNTER 2020-09-20 20:00 | Outpatient (CLI) | payer MEDICARE, MEDICAID, SELFPAY | END 2020-09-20 20:01 | disposition home or self-care (01) | LOC: SLEEP 09-21 08:55 | PROVIDERS: PCP Family Medicine; Visit Provider Internal Medicine Pulmonary Disease | DX: G47.30 Sleep apnea, unspecified (principal) | CPT/HCPCS: 95810 ==

== ENCOUNTER 2020-09-25 12:31 | Outpatient (CLI) | payer MEDICARE, MEDICAID, SELFPAY ==
--- NOTE | 2020-09-25 12:45 | USCV_ITS ---
Carmen Hooper Age: 45 Gender: F : 1975 Exam Date: 09/25/2020 13:03 Ordering Phys: Jose Green MD Technologist: Michelle Tenorio Exam Location: [facility] [place]_ Indication: POST COVID SYNDROME BP: 110 / 80 HR: 69 Rhythm: Sinus Technical Quality: Adequate MEASUREMENTS (Male / Female) Normal Values 2D ECHO LV Diastolic Diameter PLAX 4.8 cm 4.2 - 5.9 / 3.9 - 5.3 cm LV Systolic Diameter PLAX 2.7 cm LV Chamber Size 4.1 cm IVS Diastolic Thickness 1.2 cm 0.6 - 1.0 / 0.6 - 0.9 cm IVS Systolic Thickness 1.4 cm LVPW Diastolic Thickness 1.6 cm 0.6 - 1.0 / 0.6 - 0.9 cm LVPW Systolic Thickness 1.7 cm RV Chamber Size 3.6 cm LVOT Diameter 2.0 cm LV Ejection Fraction 2D Teich 74.6 % LV Ejection Fraction MOD 2C 63.9 % LV Ejection Fraction 2C AL 62.7 % LA Diameter 3.6 cm LA Width 2.5 cm LA Height 3.5 cm RA Width 3.1 cm RA Height 3.3 cm Aorta at Sinotubular Diameter 2.9 cm M-MODE LV Diastolic Diameter MM 5.0 cm 4.2 - 5.9 / 3.9 - 5.3 cm LV Systolic Diameter MM 3.9 cm LV Ejection Fraction MM Teich 44.0 % IVS Diastolic Thickness MM 1.2 cm 0.6 - 1.0 / 0.6 - 0.9 cm IVS Systolic Thickness MM 1.4 cm LVPW Diastolic Thickness MM 1.4 cm 0.6 - 1.0 / 0.6 - 0.9 cm LVPW Systolic Thickness MM 1.5 cm RV Diastolic Diameter MM 1.1 cm Aortic Annulus Diameter 3.5 cm LA Ao Ratio MM 1.1 MV E Point Septal Separation 0.6 cm DOPPLER AV Peak Velocity 149.0 cm/s LVOT Peak Velocity 73.0 cm/s AV Area Cont Eq vti 1.8 cm squared AV Area Cont Eq pk 1.6 cm squared MV Area PHT 3.6 cm squared Mitral E to A Ratio 1.2 MV E' Velocity 46.5 cm/s Mitral E to MV E' Ratio 9.7 Mitral E to LV E' Lateral Ratio 9.5 Mitral E to LV E' Septal Ratio 10.1 TR Peak Velocity 201.1 cm/s TR Peak Gradient 16.2 mmHg TR Mean Velocity 122.3 cm/s TR Mean Gradient 6.9 mmHg TR Velocity Time Integral 40.8 cm TV Peak E Velocity 62.0 cm/s PV Peak Velocity 64.0 cm/s RV Acceleration Time 0.1 s RV Ejection Time 0.4 s RV AcT/ET 0.4 FINDINGS Left Ventricle Normal left ventricular size and systolic function, EF 56 %. No regional wall motion abnormalities. Right Ventricle The right ventricle is normal in size and function. Right Atrium Appears to be of normal size Left Atrium Appears to be of normal size Mitral Valve Moderate mitral valve regurgitation. Aortic Valve No gross abnormalities noted Tricuspid Valve Trace tricuspid valve regurgitation. Could not estimate the pulmonary artery pressure because of the poor Doppler signals Pulmonic Valve No gross abnormalities noted . Pericardium No pericardial effusion. Aorta Normal ascending aorta dimension. CONCLUSIONS Normal left ventricular size and systolic function, EF 56 %. No regional wall motion abnormalities. Moderate mitral valve regurgitation. Trace tricuspid valve regurgitation. Could not estimate the pulmonary artery pressure because of the poor Doppler signals. There is no pericardial effusion. There are no intracardiac masses. No previous study is available for comparison. Dr Miguel Angel De La Cruz MD [facility] (Electronically Signed) Final Date: 25 September 2020 21:13 S
--- NOTE | 2020-09-25 13:30 | CT_ITS ---
WS: [id number] CT CHEST ANGIOGRAPHY WITH REFORMATS HISTORY: resolution of pulmonary embolism TECHNIQUE: Contiguous axial images are obtained through the chest during arterial injection of intrav enous contrast. Images are reconstructed to evaluate the pulmonary arteries. MIP imaging also reviewe d. All CT scans at [facility] use at least one of these dose optimization techniques: aut omated exposure control; mA and/or kV adjustment per patient size (includes targeted exams where dose is matched to clinical indication); or iterative reconstruction. CONTRAST: Omnipaque 350; 200 mL IV. 3 separate attempts to obtain adequate examination. DLP: 2441.02 mGy.cm COMPARISON: 06/07/2020. Adequate opacification of the pulmonary artery. There are no persistent, new or residual filling defe cts or pulmonary emboli. No RIGHT heart strain. There is mild enlargement of the LEFT heart chambers which is similar to the prior study. Normal aorta. Diffuse haziness over both lungs. Mild peripheral groundglass attenuation but no focal pneumonia. Ove rall improvement in aeration since the prior study of 06/07/2020. No adenopathy. Small hiatal hernia. Liver is incompletely visualized but appears enlarged and there is hepatic steatosis. CT/CT angio chest PE protcl [id number] IMPRESSION: 1. No new or residual pulmonary emboli. 2. LEFT heart enlargement is similar to the prior study. 3. Diffuse mild interstitial haziness and a few groundglass opacifications. Th is can be seen with pneumonitis or pulmonary emboli. Overall moderate improveme nt since 06/07/2020.
[2020-09-25] MEDS: iohexol 350 mg/mL 100 mL Btl IV ×2 (13:56→13:58)
--- NOTE | 2020-09-25 14:17 | PFTS_ITS ---
Date of Study:09/25/20 Date of Dictation: 09/26/2020 MECHANICS: Forced vital capacity (FVC) is normal . Forced expiratory volume in one second (FEV1) is moderately decreased 63%. FEV1/FVC is decreased FLOW VOLUME LOOP: Flattening of both expiratory and inspiratory loops suggestive of fixed airway obstruction . LUNG VOLUMES: Not measured. DIFFUSING CAPACITY FOR CARBON MONOXIDE: Normal . INTERPRETATION: The spirometry suggestive of obstructive airway disease. Flattening of both expiratory and inspiratory loops suggestive of fixed airway obstruction. Normal gas transfer. Please correlate clinically. MTDD
== END 2020-09-25 12:32 | disposition home or self-care (01) ==
LOC: US 12:33
PROVIDERS: PCP Family Medicine; Visit Provider Internal Medicine Pulmonary Disease
DX: J96.21 Acute and chronic respiratory failure with hypoxia (principal); I26.99 Other pulmonary embolism without acute cor pulmonale; I51.7 Cardiomegaly
CPT/HCPCS: 71275; 93306; 94060; 94618; 94729; J7611

== ENCOUNTER → 2020-09-26 09:26 | Outpatient (BNVA) | payer MEDICARE, MEDICAID, SELFPAY | PROVIDERS: PCP Family Medicine; Visit Provider Anesthesiology | DX: G89.29 Other chronic pain (principal); M54.2 Cervicalgia; M25.551 Pain in right hip; M25.552 Pain in left hip; Z79.891 Long term (current) use of opiate analgesic | CPT/HCPCS: 99214 ==

== ENCOUNTER 2020-10-17 20:00 | Outpatient (CLI) | payer MEDICARE, MEDICAID, SELFPAY | END 2020-10-17 20:01 | disposition home or self-care (01) | LOC: SLEEP 10-18 09:10 | PROVIDERS: PCP Family Medicine; Visit Provider Internal Medicine Pulmonary Disease | DX: G47.30 Sleep apnea, unspecified (principal); J96.21 Acute and chronic respiratory failure with hypoxia | CPT/HCPCS: 95811 ==

== ENCOUNTER 2020-10-18 10:03 | Outpatient (CLI) | payer MEDICARE, MEDICAID, SELFPAY ==
--- NOTE | 2020-10-18 10:30 | CT_ITS ---
WS: [id number] CT NECK WITH CONTRAST HISTORY: R49.0 - Dysphonia TECHNIQUE: Contiguous 5 mm axial images are performed through the neck with intravenous contrast. Sag ittal and coronal reformats are also submitted. All CT scans at [facility] use at least o ne of these dose optimization techniques: automated exposure control; mA and/or kV adjustment per pat ient size (includes targeted exams where dose is matched to clinical indication); or iterative recons truction. CONTRAST: CONTRAST: Omnipaque 300; 95 mL IV. DLP: 1593.82 mGycm COMPARISON: None available. Nasopharynx, oropharynx, hypopharynx and larynx are unremarkable. No soft tissue masses or abnormal e nhancement. Vocal cords move symmetrically with no paralysis. Very small amount of soft tissue thicke celi in the RIGHT vallecula is probably mucus. Torus tubarius and fossa of Rosenmuller and parapharyngeal fat are normal. No significant lymphadenopathy is identified. Thyroid gland and salivary glands are normally enhancing with no masses. No osseous abnormalities. Visualized portions of the skull base demonstrate no abnormalities. Orbits and globes are within norm al limits. No soft tissue masses. Visualized paranasal sinuses and mastoid air cells are normal. Significant motion artifact in the upper lung ramesh obscuring detail. CT/CT neck w con* [id number] IMPRESSION: 1. No adenopathy. 2. Normal movement of the vocal cords. 3. Minimal increased soft tissue in the RIGHT vallecula. This is probably jett ined mucus. For further evaluation direct visualization can be obtained.
[2020-10-18] MEDS: iohexol 300 mg/mL 100 mL Btl IV (11:00)
== END 2020-10-18 10:04 | disposition home or self-care (01) ==
LOC: RADWPI 10:07
PROVIDERS: PCP Family Medicine; Visit Provider Internal Medicine Pulmonary Disease
DX: R49.0 Dysphonia (principal)
CPT/HCPCS: 70491; Q9967

== ENCOUNTER 2020-10-28 09:20 | Emergency (ER) | payer MEDICARE, MEDICAID, SELFPAY ==
[2020-10-28] VITALS (8 sets, daily range): BP systolic 136–169; BP diastolic 84–115; PULSE 75–86; RESP 13–48; TEMP 36.9; O2SAT 97–100; BMI 44.2
--- NOTE | 2020-10-28 09:39 | XRR_ITS ---
PROCEDURE INFORMATION: Exam: XR Chest Exam date and time: 10/28/2020 9:59 AM Age: 45 years old Clinical indication: Shortness of breath; Additional info: SOB TECHNIQUE: Imaging protocol: XR of the chest Views: 1 view. COMPARISON: CT angio chest PE protcl [id number] 09/25/2020 1:26 PM FINDINGS: Lungs: Poorly defined bibasilar density due to overlying breast tissue. No focal infiltrate. Pleural spaces: No pleural effusion. Heart/Mediastinum: Normal configuration of the heart. Bones/joints: Unremarkable. Other findings: Brassiere artifact. XR/XR chest 1V portable [id number] IMPRESSION: No focal infiltrate.
[2020-10-28] MEDS: racepinephrine 0.5 mL Neb INHALATION (09:45)
--- NOTE | 2020-10-28 09:50 | W.ED.SOB ---
HPI - SOB/Dyspnea General: Chief Complaint: Shortness of Breath/Dyspnea Stated Complaint: SOB Time Seen by Provider: 10/28/20 09:22 Source: patient Mode of arrival: ambulatory Limitations: no limitations History of Present Illness: HPI Narrative: 45-year-old female who had Covid last year and was intubated for 9 days. She is had chronic bronchitis since and requires 3 L of oxygen. She states that over the last 3 to 4 days she has had a cough with congestion and some increasing shortness of breath. She is not requiring any more oxygen than her baseline. She denies any worsening improving factors. Associated symptoms: Deny abdominal pain, chest pain, fever(s), nausea or vomiting Review of Systems Const: Denies: fever(s), chills, body aches or change in appetite Eyes: Denies: blurry vision or eye discomfort ENMT: Denies: throat pain or dental pain Card: Denies: chest pain Resp: Denies: dyspnea GI: Denies: abdominal pain, nausea, vomiting or diarrhea : Denies: dysuria Musc: Denies: neck pain or back pain Skin/Breast: Denies: rash Neuro: Denies: headache(s) Psych: Denies: depression Kanu/Lymph: Denies: easy bruising All/Imm: Denies: urticaria PFSH ED PFSH: Medical History Anxiety Chiari malformation Chronic migraine Chronic neck pain Chronic pain Diabetes mellitus Diverticulitis Dysphonia Juvencio-Danlos syndrome Encounter for long-term use of opiate analgesic Generalized anxiety disorder Hip pain, bilateral Major depressive disorder, recurrent, moderate Neck pain Opioid contract exists Physical deconditioning Pneumonia due to COVID-19 virus TMJ (dislocation of temporomandibular joint) Surgical History History of foot surgery S/P carpal tunnel release S/P section S/P cholecystectomy 02/09/2019 [place] teeth extracted Family History Father Hypertension Grandmother Family history of premature coronary artery disease Social History Smoking and tobacco status: never smoked Second hand smoke exposure: No Smoking risk assessment/counseling performed?: Yes Alcohol intake: never Lives independently: Yes Household members: spouse Housing: House Marital status: Current occupational status: disabled Pets and animals: Yes History of recent travel: No Current gender identity: Female Female Reproductive History: Date of last menstrual period: 06/02/20 Physical Exam Const: COMMON NORMALS: no acute distress, patient oriented x3 and healthy appearing HENMT: COMMON NORMALS: normocephalic and atraumatic HEAD & SCALP: normocephalic and atraumatic Eye: COMMON NORMALS: Equal, round and reactive pupils present and EOMs intact bilaterally PUPIL: Yes Equal, round and reactive pupils present Neck/C-Spine: COMMON NORMALS: full ROM and supple Chest: COMMONS NORMALS: normal inspection of the chest and normal palpation of entire chest wall Resp: COMMON NORMALS: normal respiratory effort, No retractions and No use of accessory muscles AUSCULTATION: wheezes Cardio: COMMON NORMALS: regular rate, regular rhythm and No murmurs present (Cardio) RATE: regular rate RHYTHM: regular rhythm GI: COMMON NORMALS: Normal to inspection, nondistended, normoactive bowel sounds present, Soft to palpation, non-tender and no masses PALPATION: Yes Soft to palpation Extremity: COMMON NORMALS: normal to inspection and full ROM Neuro: COMMON NORMALS: patient oriented x3, moves all extremities and no focal motor deficits Psych: COMMON NORMALS: mental status grossly normal, Normal thought process present and cooperative THOUGHT PROCESS: Normal thought process present Skin: COMMON NORMALS: no rashes or lesions noted and no wounds GENERAL SKIN EXAM: no rashes or lesions noted Course Vital Signs: Vital signs: Vital Signs Temperature 98.5 F 10/28/20 09:29 Pulse Rate 78 10/28/20 11:06 Respiratory Rate 18 10/28/20 11:06 Blood Pressure 151/84 10/28/20 11:06 Pulse Oximetry 99 10/28/20 11:06 MDM - SOB/Dyspnea MDM Narrative: Medical decision making narrative: Carmen presents here with dyspnea likely chronic bronchitis. She is well-appearing here and is not requiring any more oxygen at baseline. She feels improved after breathing treatment. We will place her on 5-day course of steroids. She is to follow-up with her PCP and return if worsening. Lab Data: Labs: Lab Results 10/28/20 10/28/20 Range/Units 09:54 09:54 WBC 5.2 (4.0-10.0) 10^3/ uL RBC 4.27 (4.1-5.3) 10^6/u L Hgb 12.0 (11.5-15.3) g/dL Hct 37.6 (37.0-47.0) % MCV 88.1 (81-99) fL MCH 28.1 (28.0-34.0) pg MCHC 31.9 (30.0-36.0) g/dL RDW 14.5 (12.1-15.1) % Plt Count 159 (130-400) 10^3/c mm MPV 10.9 H (7.4-10.4) fL Neut % (Auto) 55.8 % Lymph % (Auto) 34.7 % [place] % (Auto) 7.4 % Eos % (Auto) 1.3 % Baso % (Auto) 0.6 % Neut # (Auto) 2.92 (1.8-7.7) 10^3/u L Lymph # (Auto) 1.8 (0.8-4.8) 10^3/u L [place] # (Auto) 0.4 (0.2-0.9) 10^3/u L Eos # (Auto) 0.1 (0.0-0.8) 10^3/u L Baso # (Auto) 0.0 (0.0-0.1) 10^3/u L Nucleated RBC % (a uto) 0 % Nucleated RBCs # 0.0 /100WBC Sodium 138 (136-145) mmol/L Potassium 4.1 (3.5-5.1) mmol/L Chloride 102 (98-107) mmol/L Carbon Dioxide 26 (22-29) mmol/L Anion Gap 14.1 (5-19) BUN 9 (6-20) mg/dL Creatinine 0.7 (0.5-0.9) mg/dL GFR Calculation 90.1 (90-130) mL/min Glucose 110 (65-115) mg/dL Calculated Osmolal ity 285 (285-295) mOsm/k g Calcium 8.8 (8.5-10.5) mg/dL Total Bilirubin 0.2 (0.15-1.2) mg/dL AST 16 (0-32) U/L ALT 16 (0-33) U/L Alkaline Phosphata se 55 (35-105) IU/L NT-Pro-B Natriuret Pep 41 (0-125) pg/mL Total Protein 7.1 (6.6-8.7) g/dL Albumin 4.3 (3.5-5.2) g/dL Globulin 2.8 (1.3-4.6) g/dL Imaging Data^: CXR: Attestation: I personally reviewed and interpreted this imaging study as follows: My impression: No acute normality Discharge Plan Discharge Patient Disposition: Home Clinical Impression: Bronchitis Condition: Stable Prescriptions: New prednisone 50 mg tablet 50 mg PO DAILY Qty: 5 RF: 0 No Action omeprazole 20 mg capsule,delayed release(DR/EC) 20 mg PO DAILY RF: 0 hydrocodone-acetaminophen 10-325 mg tablet 1 tab PO Q6H PRN (Reason: Pain) 30 Days Qty: 120 RF: 0 hydrocodone-acetaminophen 10-325 mg tablet 1 tab PO QID 30 Days Qty: 120 RF: 0 gabapentin 800 mg tablet 800 mg PO Q6H 30 Days Qty: 120 RF: 1 cyclobenzaprine 10 mg tablet 20 mg PO BID PRN (Reason: muscle spasm) Qty: 120 RF: 1 morphine 15 mg tablet extended release 15 mg PO Q12H 30 Days Qty: 60 RF: 0 morphine 15 mg tablet extended release 15 mg PO Q12H 30 Days Qty: 60 RF: 0 buspirone 15 mg tablet 15 mg PO BID PRN (Reason: anxiety) 30 Days Qty: 60 RF: 1 rizatriptan 10 mg tablet 10 mg PO DAILY PRN (Reason: Migraine Headache) RF: 0 cranberry extract 200 mg capsule 200 mg PO DAILY RF: 0 acetaminophen 500 mg capsule 500 mg PO Q4H PRN (Reason: Pain) RF: 0 chlorpheniramine maleate [Allergy (chlorpheniramine)] 4 mg tablet 4 mg PO DAILY RF: 0 melatonin 3 mg capsule 6 mg PO BEDTIME PRN (Reason: Insomnia) RF: 0 Wellbutrin XL 300 mg tablet extended release 24 hr 300 mg PO QAM Qty: 30 RF: 2 sertraline 100 mg tablet 200 mg PO DAILY Qty: 60 RF: 2 nystatin 100,000 unit/mL suspension 1 ml buccal BID Qty: 200 RF: 3 metoprolol succinate 50 mg tablet extended release 24 hr 50 mg PO BID Qty: 60 RF: 5 albuterol sulfate 2.5 mg /3 mL (0.083 %) solution for nebulization 2.5 mg INHALATION Q6H PRN (Reason: shortness of breath or wheezing) Qty: 180 RF: 1 ondansetron HCl 4 mg tablet See Rx Instructions .ROUTE .COMPLEX Qty: 30 RF: 0 albuterol sulfate 90 mcg/actuation HFA aerosol inhaler 2 puff INHALATION QID PRN (Reason: Shortness Of Breath) Qty: 18 RF: 5 apixaban [Eliquis] 5 mg tablet See Rx Instructions .ROUTE .COMPLEX Qty: 60 RF: 0 (DME) blood sugar diagnostic Strip See Rx Instructions .ROUTE .MEDSUPPLY Qty: 200 RF: 3 (DME) blood-glucose meter [Blood Glucose Monitoring] Kit See Rx Instructions .ROUTE .MEDSUPPLY Qty: 1 RF: 0 alcohol swabs [Alcohol Pads] Pads, Medicated 1 pad topical BID Qty: 200 RF: 3 (DME) lancets 33 gauge misc See Rx Instructions .ROUTE .MEDSUPPLY Qty: 200 RF: 3 budesonide-formoterol [Symbicort] 80-4.5 mcg/actuation HFA aerosol inhaler 2 puff inhalation BID Qty: 10.2 RF: 3 Discharge Orders: Discharge ED (Routine); Ordered 10/28/20 Ordered By: Raimundo Menjivar Referrals: Chano Renee DO [Primary Care Provider] - 1-3 days Discharge Diet: Advance as tolerated Discharge Activity: Resume usual activity Patient Instructions: Bronchitis (Acute) - Adult Coding Level of Care Code ED Threat Monitoring Analyst for Chg Fwd Exam Comprehensive
[2020-10-28 10:14] LABS: Basophils % 0.6 %; Eosinophils # 0.1 10^3/uL (0.0-0.8); Eosinophils % 1.3 %; Hematocrit 37.6 % (37.0-47.0); Lymphocytes # 1.8 10^3/uL (0.8-4.8); Lymphocytes % 34.7 %; Mean Corpuscular HGB Conc 31.9 g/dL (30.0-36.0); Mean Corpuscular Hemoglobin 28.1 pg (28.0-34.0); Mean Corpuscular Volume 88.1 fL (81-99); Mean Platelet Volume 10.9 fL (7.4-10.4); Monocytes # 0.4 10^3/uL (0.2-0.9); Monocytes % 7.4 %; Neutrophils # 2.92 10^3/uL (1.8-7.7); Neutrophils % 55.8 %; Nucleated Red Blood Cells % 0 %; Platelet Count 159 10^3/cmm (130-400); Red Blood Count 4.27 10^6/uL (4.1-5.3); Red Cell Distribution Width 14.5 % (12.1-15.1); White Blood Count 5.2 10^3/uL (4.0-10.0)
[2020-10-28 10:51] LABS: Alanine Aminotransferase 16 U/L (0-33); Albumin Level 4.3 g/dL (3.5-5.2); Alkaline Phosphatase 55 IU/L (35-105); Anion Gap 14.1 (5-19); Aspartate Amino Transferase 16 U/L (0-32); Blood Urea Nitrogen 9 mg/dL (6-20); Calcium 8.8 mg/dL (8.5-10.5); Carbon Dioxide 26 mmol/L (22-29); Chloride 102 mmol/L (98-107); Globulin 2.8 g/dL (1.3-4.6); Glomerular Filtration Rate 90.1 mL/min (90-130); Glucose 110 mg/dL (65-115); NT Pro B Type Natriuretic Pept 41 pg/mL (0-125); Osmolality Calculated 285 mOsm/kg (285-295); Potassium 4.1 mmol/L (3.5-5.1); Sodium 138 mmol/L (136-145); Total Bilirubin 0.2 mg/dL (0.15-1.2); Total Protein 7.1 g/dL (6.6-8.7)
== END 2020-10-28 11:06 | disposition home or self-care (01) ==
PROVIDERS: Emergency Provider Emergency Medicine; PCP Family Medicine
DX: J40 Bronchitis, not specified as acute or chronic (principal); E11.9 Type 2 diabetes mellitus without complications
CPT/HCPCS: 71045; 80053; 83880; 85025; 94640; 96374; 99284; J2930

== ENCOUNTER → 2020-11-12 07:40 | Outpatient (BNVA) | payer MEDICARE, MEDICAID, SELFPAY | PROVIDERS: PCP Family Medicine; Visit Provider Nurse Practitioner | DX: F33.1 Major depressive disorder, recurrent, moderate (principal); F41.1 Generalized anxiety disorder | CPT/HCPCS: 99214 ==

== ENCOUNTER → 2020-11-30 10:18 | Outpatient (BNVA) | payer MEDICARE, MEDICAID, SELFPAY | PROVIDERS: PCP Family Medicine; Visit Provider Anesthesiology | DX: M54.2 Cervicalgia (principal); M25.551 Pain in right hip; M25.552 Pain in left hip; Z79.891 Long term (current) use of opiate analgesic | CPT/HCPCS: 99214 ==

== ENCOUNTER → 2020-12-25 09:43 | Outpatient (BNVA) | payer MEDICARE, MEDICAID, SELFPAY | PROVIDERS: PCP Family Medicine; Visit Provider Dermatology | DX: Z20.828 Contact with and (suspected) exposure to other viral communicable diseases (principal) | CPT/HCPCS: 87635 ==

== ENCOUNTER → 2021-01-09 09:16 | Outpatient (BNVA) | payer MEDICARE, MEDICAID, SELFPAY | PROVIDERS: PCP Family Medicine; Visit Provider Nurse Practitioner Family | DX: I10 Essential (primary) hypertension (principal); E11.9 Type 2 diabetes mellitus without complications; Z79.899 Other long term (current) drug therapy | CPT/HCPCS: 80053; 80061; 83036; 84443 ==

== ENCOUNTER → 2021-01-31 10:54 | Outpatient (BNVA) | payer MEDICARE, MEDICAID, SELFPAY | PROVIDERS: PCP Family Medicine; Visit Provider Nurse Practitioner | DX: G89.29 Other chronic pain (principal); M54.2 Cervicalgia; G43.709 Chronic migraine without aura, not intractable, without status migrainosus; S93.324A Dislocation of tarsometatarsal joint of right foot, initial encounter; X58.XXXA Exposure to other specified factors, initial encounter; M25.551 Pain in right hip; M25.552 Pain in left hip; Z79.891 Long term (current) use of opiate analgesic; Z86.16 Personal history of COVID-19 | CPT/HCPCS: 99213 ==

== ENCOUNTER → 2021-02-04 07:40 | Outpatient (BNVA) | payer MEDICARE, MEDICAID, SELFPAY | PROVIDERS: PCP Family Medicine; Visit Provider Nurse Practitioner | DX: F33.1 Major depressive disorder, recurrent, moderate (principal); F41.1 Generalized anxiety disorder | CPT/HCPCS: 99214 ==

== ENCOUNTER 2021-02-10 05:10 | Emergency (ER) | payer MEDICARE, MEDICAID, SELFPAY ==
[2021-02-10 05:13] VITALS: BP 114/75; PULSE 98; RESP 20; TEMP 37.4; O2SAT 96; BMI 47.8
--- NOTE | 2021-02-10 05:33 | W.ED.NAVMDI ---
Documented by User: Kiran Villaseñor DO 02/10/21 06:05 HPI - Nausea/Vomiting/Diarrhea General: Chief complaint: Nausea/Vomiting/Diarrhea Stated complaint: n,v,d Time Seen by Provider: 02/10/21 05:20 History of Present Illness: HPI Narrative: 45-year-old female who was on a ventilator for 9 days with COVID-19 back in April. 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 She started vomiting at midnight last night, and has vomited at least 5 times. She had some diarrhea yesterday. She is running a temperature, not necessarily fever although she is chilling some. She denies any overt belly pain, stating that she is tender in the upper abdomen from throwing up. She noted some red blood in the vomitus early this morning. She notes airway irritation with more trouble breathing since she started vomiting. She has a history of cholecystectomy. MD elicited complaint: nausea, vomiting, diarrhea and other Pertinent past history: other Onset (ago): hour(s) Description of vomiting: food contents, watery and blood-streaked Associated nausea: Yes Associated abdominal pain: Yes (mild) Location of pain: Epigastric Radiation: diffuse Pain consistency: intermittent Severity: moderate Quality: cramping and aching Relieving factors: none Associated symtoms: Reports fevers/chills, myalgias, nausea and short of breath; Denies altered mental status, anxiety, change in vision, chest pain, cough, diaphoresis, decreased urine output, dizziness, dysuria, epistaxis, headache(s) or rash Review of Systems Const: Denies: diaphoresis Eyes: Denies: change in vision or blurry vision ENMT: Denies: odynophagia, swelling of lips/tongue, bleeding gums, dental pain, change in hearing, epistaxis, post nasal drip or sinus pain Card: Denies: chest pain Resp: Denies: dyspnea, productive cough, non-productive cough or wheezing GI: Reports: nausea : Denies: dysuria Musc: Reports: back pain; Denies: neck pain, joint redness or joint warmth Skin/Breast: Denies: rash, pruritus or erythema Neuro: Denies: headache(s), dizziness, vertigo or confusion Psych: Denies: anxiety, visual hallucinations or auditory hallucinations PFSH ED PFSH: Medical History (Updated 02/10/21 @ 07:24 by Nisa Lamb DO) Anxiety Chiari malformation Chronic migraine Chronic neck pain Chronic pain Diabetes mellitus Diverticulitis Dysphonia Juvencio-Danlos syndrome Encounter for long-term use of opiate analgesic Generalized anxiety disorder Hip pain, bilateral Major depressive disorder, recurrent, moderate Neck pain Opioid contract exists Physical deconditioning Pneumonia due to COVID-19 virus TMJ (dislocation of temporomandibular joint) Surgical History (Updated 01/31/21 @ 11:00 by ANNETTE Lisa) History of foot surgery S/P carpal tunnel release S/P section S/P cholecystectomy 02/09/2019 [place] teeth extracted Family History Father Hypertension Grandmother Family history of premature coronary artery disease Social History Smoking and tobacco status: never smoked Second hand smoke exposure: No Smoking risk assessment/counseling performed?: Yes Alcohol intake: never Lives independently: Yes Household members: spouse Housing: House Marital status: Current occupational status: disabled Pets and animals: Yes History of recent travel: No Current gender identity: Female Female Reproductive History: Date of last menstrual period: 01/21/21 Physical Exam Const: EXAM LIMITATIONS: no altered mental status Eye: COMMON NORMALS: Equal, round and reactive pupils present and EOMs intact bilaterally PUPIL: Yes Equal, round and reactive pupils present Chest: COMMONS NORMALS: normal inspection of the chest Resp: EFFORT & INSPECTION: Yes tachypneic, No respiratory distress and Yes uses accessory muscles (minimally) AUSCULTATION: no rales, no rhonchi and other (mild stridor) Cardio: COMMON NORMALS: regular rate and regular rhythm RATE: regular rate RHYTHM: regular rhythm GI: COMMON NORMALS: Normal to inspection, nondistended, normoactive bowel sounds present and Soft to palpation PALPATION: Yes Soft to palpation Neuro: COMMON NORMALS: moves all extremities and no sensory deficits noted Course Vital Signs: Vital signs: Vital Signs Temperature 99.4 F 02/10/21 05:13 Pulse Rate 84 02/10/21 06:22 Respiratory Rate 18 02/10/21 06:22 Blood Pressure 107/78 02/10/21 06:22 Pulse Oximetry 94 02/10/21 06:22 MDM - Nausea/Vomiting/Diarrhea MDM Narrative: Medical decision making narrative: 45-year-old female with vocal cord dysfunction and scarring. She presents after vomiting, with airway irritation and mild stridor. She is getting dexamethasone, racemic epinephrine, and symptomatic treatment otherwise. Awaiting labs. She will be checked out to Dr. Lamb at shift change Lab Data: Labs: Lab Results 02/10/21 02/10/21 Range/Units 06:05 06:05 WBC 10.8 H (4.0-10.0) 10^3/ uL RBC 4.05 L (4.1-5.3) 10^6/u L Hgb 11.0 L (11.5-15.3) g/dL Hct 35.0 L (37.0-47.0) % MCV 86.4 (81-99) fL MCH 27.2 L (28.0-34.0) pg MCHC 31.4 (30.0-36.0) g/dL RDW 14.0 (12.1-15.1) % Plt Count 157 (130-400) 10^3/c mm MPV 11.0 H (7.4-10.4) fL Neut % (Auto) 77.8 % Lymph % (Auto) 14.6 % [place] % (Auto) 6.1 % Eos % (Auto) 0.6 % Baso % (Auto) 0.6 % Neut # (Auto) 8.40 H (1.8-7.7) 10^3/u L Lymph # (Auto) 1.6 (0.8-4.8) 10^3/u L [place] # (Auto) 0.7 (0.2-0.9) 10^3/u L Eos # (Auto) 0.1 (0.0-0.8) 10^3/u L Baso # (Auto) 0.1 (0.0-0.1) 10^3/u L Nucleated RBC % (a uto) 0 % Nucleated RBCs # 0.0 /100WBC Sodium 136 (136-145) mmol/L Potassium 3.9 (3.5-5.1) mmol/L Chloride 103 (98-107) mmol/L Carbon Dioxide 23 (22-29) mmol/L Anion Gap 13.9 (5-19) BUN 9 (6-20) mg/dL Creatinine 0.8 (0.5-0.9) mg/dL GFR Calculation 77.2 L (90-130) mL/min Glucose 164 H (65-115) mg/dL Calculated Osmolal ity 284 L (285-295) mOsm/k g Calcium 8.5 (8.5-10.5) mg/dL Total Bilirubin 0.3 (0.15-1.2) mg/dL AST 30 (0-32) U/L ALT 33 (0-33) U/L Alkaline Phosphata se 56 (35-105) IU/L C-Reactive Protein 6.1 H (0.0-4.9) mg/L Total Protein 6.1 L (6.6-8.7) g/dL Albumin 3.9 (3.5-5.2) g/dL Globulin 2.2 (1.3-4.6) g/dL Lipase 31 (13-60) U/L Discharge Plan Discharge Patient Disposition: Home Clinical Impression: Gastroenteritis, Vocal cord anomaly Condition: Stable Prescriptions: New Zofran 4 mg tablet 4 mg PO Q6H Qty: 12 RF: 0 No Action omeprazole 20 mg capsule,delayed release(DR/EC) 20 mg PO DAILY RF: 0 ondansetron HCl 4 mg tablet See Rx Instructions .ROUTE .COMPLEX PRN (Reason: nausea and vomiting) RF: 0 rizatriptan 10 mg tablet 10 mg PO DAILY PRN (Reason: Migraine Headache) RF: 0 cranberry extract 200 mg capsule 200 mg PO DAILY RF: 0 acetaminophen 500 mg capsule 500 mg PO Q4H PRN (Reason: Pain) RF: 0 chlorpheniramine maleate [Allergy (chlorpheniramine)] 4 mg tablet 4 mg PO DAILY RF: 0 melatonin 3 mg capsule 6 mg PO BEDTIME PRN (Reason: Insomnia) RF: 0 nystatin 100,000 unit/mL suspension 1 ml buccal BID Qty: 200 RF: 3 Wellbutrin XL 300 mg tablet extended release 24 hr 300 mg PO QAM Qty: 30 RF: 2 sertraline 100 mg tablet 200 mg PO DAILY Qty: 60 RF: 2 gabapentin 800 mg tablet 800 mg PO Q6H 30 Days Qty: 120 RF: 1 buspirone 15 mg tablet 15 mg PO BID PRN (Reason: anxiety) 30 Days Qty: 60 RF: 1 cyclobenzaprine 10 mg tablet 20 mg PO BID PRN (Reason: muscle spasm) Qty: 120 RF: 1 hydrocodone-acetaminophen 10-325 mg tablet 1 tab PO QID 30 Days Qty: 120 RF: 0 hydrocodone-acetaminophen 10-325 mg tablet 1 tab PO Q6H PRN (Reason: Pain) 30 Days Qty: 120 RF: 0 morphine 15 mg tablet extended release 15 mg PO Q12H 30 Days Qty: 60 RF: 0 morphine 15 mg tablet extended release 15 mg PO Q12H 30 Days Qty: 60 RF: 0 albuterol sulfate 2.5 mg /3 mL (0.083 %) solution for nebulization 2.5 mg INHALATION Q6H PRN (Reason: shortness of breath or wheezing) Qty: 180 RF: 1 albuterol sulfate 90 mcg/actuation HFA aerosol inhaler 2 puff INHALATION QID PRN (Reason: Shortness Of Breath) Qty: 18 RF: 5 (DME) blood sugar diagnostic Strip See Rx Instructions .ROUTE .MEDSUPPLY Qty: 200 RF: 3 (DME) blood-glucose meter [Blood Glucose Monitoring] Kit See Rx Instructions .ROUTE .MEDSUPPLY Qty: 1 RF: 0 alcohol swabs [Alcohol Pads] Pads, Medicated 1 pad topical BID Qty: 200 RF: 3 (DME) lancets 33 gauge misc See Rx Instructions .ROUTE .MEDSUPPLY Qty: 200 RF: 3 Eliquis 5 mg tablet See Rx Instructions .ROUTE .COMPLEX Qty: 60 RF: 2 metoprolol succinate 50 mg tablet extended release 24 hr See Rx Instructions .ROUTE .COMPLEX Qty: 60 RF: 0 atorvastatin 40 mg tablet 40 mg PO DAILY Qty: 90 RF: 1 Discharge Orders: Discharge ED (Routine); Ordered 02/10/21 Ordered By: Nisa Lamb Referrals: Chano Renee DO [Primary Care Provider] - Discharge Diet: Advance as tolerated and Clear Liquid Discharge Activity: Increase activity as tolerated Patient Instructions: Gastroenteritis (ED), Opioid Safety Activity Restrictions/Additional Instructions: Clear liquids today advance her diet as tolerated use the Zofran for nausea and vomiting. Return if you have abdominal pain especially right lower quadrant pain, fevers worsening of symptoms any changes in your airway. Resume your home medications Thank you for choosing [facility] for your healthcare needs today. Please realize this is an emergency room and that we are providing you with a medical screening exam and this may not be complete and all inclusive of all the testing and or work up that you may need to determine your ailment or severity of your illness. It is very important that you follow up as instructed or that you return to the Emergency Department should you have concerns or if your condition changes or worsens in any way. Coding Level of Care Code ED Cloth Dye Range Operator for Chg Fwd Exam Detailed Documented by User: Nisa Lamb DO 02/10/21 08:35 HPI - Nausea/Vomiting/Diarrhea General: Chief complaint: Nausea/Vomiting/Diarrhea Stated complaint: n,v,d Time Seen by Provider: 02/10/21 05:20 [facility] ED PFSH: Medical History (Updated 02/10/21 @ 07:24 by Nisa Lamb DO) Anxiety Chiari malformation Chronic migraine Chronic neck pain Chronic pain Diabetes mellitus Diverticulitis Dysphonia Juvencio-Danlos syndrome Encounter for long-term use of opiate analgesic Generalized anxiety disorder Hip pain, bilateral Major depressive disorder, recurrent, moderate Neck pain Opioid contract exists Physical deconditioning Pneumonia due to COVID-19 virus TMJ (dislocation of temporomandibular joint) Surgical History (Updated 01/31/21 @ 11:00 by ANNETTE Lisa) History of foot surgery S/P carpal tunnel release S/P section S/P cholecystectomy 02/09/2019 [place] teeth extracted Family History Father Hypertension Grandmother Family history of premature coronary artery disease Social History Smoking and tobacco status: never smoked Second hand smoke exposure: No Smoking risk assessment/counseling performed?: Yes Alcohol intake: never Lives independently: Yes Household members: spouse Housing: House Marital status: Current occupational status: disabled Pets and animals: Yes History of recent travel: No Current gender identity: Female Course Vital Signs: Vital signs: Vital Signs Temperature 99.4 F 02/10/21 05:13 Pulse Rate 84 02/10/21 06:22 Respiratory Rate 18 02/10/21 06:22 Blood Pressure 107/78 02/10/21 06:22 Pulse Oximetry 94 02/10/21 06:22 MDM - Nausea/Vomiting/Diarrhea MDM Narrative: Medical decision making narrative: Patient improved in the emergency department she was feeling a lot better she said she came in mostly she was concerned about her breathing with her history of her scarring of her vocal cords. She has no stridor she does have a raspy voice but it is back to baseline according to her and her family. She tolerated ice chips in the emergency department she was given a liter of fluids she continues to deny any overt abdominal pain discussed with her risks of appendicitis she does not feel she needs a CAT scan at this time she feels she does have some type of stomach bug. But she would like a prescription for some Zofran She will up to her return if any abdominal pain Medical Records: Attestation: I reviewed the patient's medical records. Lab Data: Attestation: I reviewed the patient's lab results. Labs: Lab Results 02/10/21 02/10/21 Range/Units 06:05 06:05 WBC 10.8 H (4.0-10.0) 10^3/ uL RBC 4.05 L (4.1-5.3) 10^6/u L Hgb 11.0 L (11.5-15.3) g/dL Hct 35.0 L (37.0-47.0) % MCV 86.4 (81-99) fL MCH 27.2 L (28.0-34.0) pg MCHC 31.4 (30.0-36.0) g/dL RDW 14.0 (12.1-15.1) % Plt Count 157 (130-400) 10^3/c mm MPV 11.0 H (7.4-10.4) fL Neut % (Auto) 77.8 % Lymph % (Auto) 14.6 % [place] % (Auto) 6.1 % Eos % (Auto) 0.6 % Baso % (Auto) 0.6 % Neut # (Auto) 8.40 H (1.8-7.7) 10^3/u L Lymph # (Auto) 1.6 (0.8-4.8) 10^3/u L [place] # (Auto) 0.7 (0.2-0.9) 10^3/u L Eos # (Auto) 0.1 (0.0-0.8) 10^3/u L Baso # (Auto) 0.1 (0.0-0.1) 10^3/u L Nucleated RBC % (a uto) 0 % Nucleated RBCs # 0.0 /100WBC Sodium 136 (136-145) mmol/L Potassium 3.9 (3.5-5.1) mmol/L Chloride 103 (98-107) mmol/L Carbon Dioxide 23 (22-29) mmol/L Anion Gap 13.9 (5-19) BUN 9 (6-20) mg/dL Creatinine 0.8 (0.5-0.9) mg/dL GFR Calculation 77.2 L (90-130) mL/min Glucose 164 H (65-115) mg/dL Calculated Osmolal ity 284 L (285-295) mOsm/k g Calcium 8.5 (8.5-10.5) mg/dL Total Bilirubin 0.3 (0.15-1.2) mg/dL AST 30 (0-32) U/L ALT 33 (0-33) U/L Alkaline Phosphata se 56 (35-105) IU/L C-Reactive Protein 6.1 H (0.0-4.9) mg/L Total Protein 6.1 L (6.6-8.7) g/dL Albumin 3.9 (3.5-5.2) g/dL Globulin 2.2 (1.3-4.6) g/dL Lipase 31 (13-60) U/L Discharge Plan Discharge Patient Disposition: Home Clinical Impression: Gastroenteritis, Vocal cord anomaly Condition: Stable Prescriptions: New Zofran 4 mg tablet 4 mg PO Q6H Qty: 12 RF: 0 No Action omeprazole 20 mg capsule,delayed release(DR/EC) 20 mg PO DAILY RF: 0 ondansetron HCl 4 mg tablet See Rx Instructions .ROUTE .COMPLEX PRN (Reason: nausea and vomiting) RF: 0 rizatriptan 10 mg tablet 10 mg PO DAILY PRN (Reason: Migraine Headache) RF: 0 cranberry extract 200 mg capsule 200 mg PO DAILY RF: 0 acetaminophen 500 mg capsule 500 mg PO Q4H PRN (Reason: Pain) RF: 0 chlorpheniramine maleate [Allergy (chlorpheniramine)] 4 mg tablet 4 mg PO DAILY RF: 0 melatonin 3 mg capsule 6 mg PO BEDTIME PRN (Reason: Insomnia) RF: 0 nystatin 100,000 unit/mL suspension 1 ml buccal BID Qty: 200 RF: 3 Wellbutrin XL 300 mg tablet extended release 24 hr 300 mg PO QAM Qty: 30 RF: 2 sertraline 100 mg tablet 200 mg PO DAILY Qty: 60 RF: 2 gabapentin 800 mg tablet 800 mg PO Q6H 30 Days Qty: 120 RF: 1 buspirone 15 mg tablet 15 mg PO BID PRN (Reason: anxiety) 30 Days Qty: 60 RF: 1 cyclobenzaprine 10 mg tablet 20 mg PO BID PRN (Reason: muscle spasm) Qty: 120 RF: 1 hydrocodone-acetaminophen 10-325 mg tablet 1 tab PO QID 30 Days Qty: 120 RF: 0 hydrocodone-acetaminophen 10-325 mg tablet 1 tab PO Q6H PRN (Reason: Pain) 30 Days Qty: 120 RF: 0 morphine 15 mg tablet extended release 15 mg PO Q12H 30 Days Qty: 60 RF: 0 morphine 15 mg tablet extended release 15 mg PO Q12H 30 Days Qty: 60 RF: 0 albuterol sulfate 2.5 mg /3 mL (0.083 %) solution for nebulization 2.5 mg INHALATION Q6H PRN (Reason: shortness of breath or wheezing) Qty: 180 RF: 1 albuterol sulfate 90 mcg/actuation HFA aerosol inhaler 2 puff INHALATION QID PRN (Reason: Shortness Of Breath) Qty: 18 RF: 5 (DME) blood sugar diagnostic Strip See Rx Instructions .ROUTE .MEDSUPPLY Qty: 200 RF: 3 (DME) blood-glucose meter [Blood Glucose Monitoring] Kit See Rx Instructions .ROUTE .MEDSUPPLY Qty: 1 RF: 0 alcohol swabs [Alcohol Pads] Pads, Medicated 1 pad topical BID Qty: 200 RF: 3 (DME) lancets 33 gauge misc See Rx Instructions .ROUTE .MEDSUPPLY Qty: 200 RF: 3 Eliquis 5 mg tablet See Rx Instructions .ROUTE .COMPLEX Qty: 60 RF: 2 metoprolol succinate 50 mg tablet extended release 24 hr See Rx Instructions .ROUTE .COMPLEX Qty: 60 RF: 0 atorvastatin 40 mg tablet 40 mg PO DAILY Qty: 90 RF: 1 Discharge Orders: Discharge ED (Routine); Ordered 02/10/21 Ordered By: Nisa Lamb Referrals: Chano Renee, [Primary Care Provider] - Discharge Diet: Advance as tolerated and Clear Liquid Discharge Activity: Increase activity as tolerated Patient Instructions: Gastroenteritis (ED), Opioid Safety Activity Restrictions/Additional Instructions: Clear liquids today advance her diet as tolerated use the Zofran for nausea and vomiting. Return if you have abdominal pain especially right lower quadrant pain, fevers worsening of symptoms any changes in your airway. Resume your home medications Thank you for choosing [facility] for your healthcare needs today. Please realize this is an emergency room and that we are providing you with a medical screening exam and this may not be complete and all inclusive of all the testing and or work up that you may need to determine your ailment or severity of your illness. It is very important that you follow up as instructed or that you return to the Emergency Department should you have concerns or if your condition changes or worsens in any way. Coding Level of Care Code ED Cloth Dye Range Operator for Chelsey Magana Exam Detailed
[2021-02-10 06:08] VITALS: PULSE 90; RESP 17; O2SAT 96
[2021-02-10] MEDS: racepinephrine 0.5 mL Neb INHALATION (06:08)
[2021-02-10 06:18] VITALS: PULSE 89; RESP 18; O2SAT 93
[2021-02-10 06:22] VITALS: BP 107/78; PULSE 84; RESP 18; O2SAT 94
[2021-02-10 06:28] LABS: Basophils # 0.1 10^3/uL (0.0-0.1); Basophils % 0.6 %; Eosinophils # 0.1 10^3/uL (0.0-0.8); Eosinophils % 0.6 %; Lymphocytes # 1.6 10^3/uL (0.8-4.8); Lymphocytes % 14.6 %; Mean Corpuscular HGB Conc 31.4 g/dL (30.0-36.0); Mean Corpuscular Hemoglobin 27.2 pg (28.0-34.0); Mean Corpuscular Volume 86.4 fL (81-99); Monocytes # 0.7 10^3/uL (0.2-0.9); Monocytes % 6.1 %; Neutrophils % 77.8 %; Nucleated Red Blood Cells % 0 %; Platelet Count 157 10^3/cmm (130-400); Red Blood Count 4.05 10^6/uL (4.1-5.3); White Blood Count 10.8 10^3/uL (4.0-10.0)
[2021-02-10] MEDS: ondansetron 2 mg/ML SDV 2 mL 4 MG IVP (06:45)
[2021-02-10] MEDS: dexamethasone 4 mg/mL INJ 8 MG IVP (06:45)
[2021-02-10] MEDS: sodium chloride 0.9% 1,000 ML 999 ML IV (06:45)
[2021-02-10 06:48] LABS: Alanine Aminotransferase 33 U/L (0-33); Albumin Level 3.9 g/dL (3.5-5.2); Alkaline Phosphatase 56 IU/L (35-105); Anion Gap 13.9 (5-19); Aspartate Amino Transferase 30 U/L (0-32); Blood Urea Nitrogen 9 mg/dL (6-20); C Reactive Protein 6.1 mg/L (0.0-4.9); Calcium 8.5 mg/dL (8.5-10.5); Carbon Dioxide 23 mmol/L (22-29); Chloride 103 mmol/L (98-107); Globulin 2.2 g/dL (1.3-4.6); Glomerular Filtration Rate 77.2 mL/min (90-130); Glucose 164 mg/dL (65-115); Lipase 31 U/L (13-60); Osmolality Calculated 284 mOsm/kg (285-295); Potassium 3.9 mmol/L (3.5-5.1); Sodium 136 mmol/L (136-145); Total Bilirubin 0.3 mg/dL (0.15-1.2); Total Protein 6.1 g/dL (6.6-8.7)
== END 2021-02-10 08:19 | disposition home or self-care (01) ==
PROVIDERS: Emergency Provider Emergency Medicine; PCP Family Medicine
DX: K52.9 Noninfective gastroenteritis and colitis, unspecified (principal); J38.3 Other diseases of vocal cords; Z79.01 Long term (current) use of anticoagulants; E11.9 Type 2 diabetes mellitus without complications
CPT/HCPCS: 80053; 83690; 85025; 86140; 94640; 96361; 96374; 96375; 99284; J1100; J2405; J7030

== ENCOUNTER → 2021-03-29 10:41 | Outpatient (BNVA) | payer MEDICARE, MEDICAID, SELFPAY | PROVIDERS: PCP Family Medicine; Visit Provider Nurse Practitioner | DX: G89.29 Other chronic pain (principal); M54.9 Dorsalgia, unspecified; M54.2 Cervicalgia; M25.512 Pain in left shoulder; E66.01 Morbid (severe) obesity due to excess calories; Z68.42 Body mass index [BMI] 45.0-49.9, adult; Z79.891 Long term (current) use of opiate analgesic | CPT/HCPCS: 99213; 99214 ==

== ENCOUNTER → 2021-05-23 08:54 | Outpatient (BNVA) | payer MEDICARE, MEDICAID, SELFPAY | PROVIDERS: PCP Family Medicine; Visit Provider Nurse Practitioner | DX: F41.1 Generalized anxiety disorder (principal); F33.1 Major depressive disorder, recurrent, moderate | CPT/HCPCS: 99214 ==

== ENCOUNTER → 2021-06-06 09:18 | Outpatient (BNVA) | payer MEDICARE, MEDICAID, SELFPAY | PROVIDERS: PCP Family Medicine; Visit Provider Internal Medicine Pulmonary Disease | DX: R06.00 Dyspnea, unspecified (principal) | CPT/HCPCS: 87635 ==

== ENCOUNTER 2021-06-11 10:04 | Outpatient (CLI) | payer MEDICARE, MEDICAID, SELFPAY ==
--- NOTE | 2021-06-11 10:59 | PFTS_ITS ---
Date of Study:06/11/21 Date of Dictation: MECHANICS: Forced vital capacity (FVC) is normal. Forced expiratory volume in one second (FEV1) is normal. FEV1/FVC is normal. FLOW VOLUME LOOP: Normal. LUNG VOLUMES: Total lung capacity (TLC) is increased. Residual volume (RV) is increased. DIFFUSING CAPACITY FOR CARBON MONOXIDE: Normal. INTERPRETATION: The prebronchodilator spirometry is normal. No postbronchodilator spirometry was performed. The lung volumes are consistent with hyperinflation and air trapping. However, there is no evidence of obstructive disease based on the flow volume loop. Gas exchange (DLCO) is normal. MTDD
== END 2021-06-11 10:05 | disposition home or self-care (01) ==
LOC: RT 10:09
PROVIDERS: PCP Family Medicine; Visit Provider Internal Medicine Pulmonary Disease
DX: R06.00 Dyspnea, unspecified (principal)
CPT/HCPCS: 94010; 94618; 94726; 94729

== ENCOUNTER → 2021-06-12 10:10 | Outpatient (BNVA) | payer MEDICARE, MEDICAID, SELFPAY | PROVIDERS: PCP Family Medicine; Visit Provider Anesthesiology | DX: G89.29 Other chronic pain (principal); M54.50 Low back pain, unspecified; M54.2 Cervicalgia; Z79.891 Long term (current) use of opiate analgesic | CPT/HCPCS: 99214 ==

== ENCOUNTER → 2021-07-17 10:18 | Outpatient (BNVA) | payer MEDICARE, MEDICAID, SELFPAY | PROVIDERS: PCP Family Medicine; Visit Provider Nurse Practitioner Family | DX: R10.9 Unspecified abdominal pain (principal) | CPT/HCPCS: 81000; 87086 ==

== ENCOUNTER → 2021-08-27 07:46 | Outpatient (BNVA) | payer MEDICARE, MEDICAID, SELFPAY | PROVIDERS: PCP Family Medicine; Visit Provider Nurse Practitioner | DX: F41.1 Generalized anxiety disorder (principal); F33.1 Major depressive disorder, recurrent, moderate | CPT/HCPCS: 99214 ==

== ENCOUNTER → 2021-11-05 11:10 | Outpatient (BNVA) | payer MEDICARE, MEDICAID, SELFPAY | PROVIDERS: PCP Family Medicine; Referring Provider Dermatology; Visit Provider Physician Assistant | DX: M54.2 Cervicalgia (principal); G89.29 Other chronic pain | CPT/HCPCS: 72050 ==

== ENCOUNTER 2021-11-25 01:29 | Emergency (ER) | payer MEDICARE, MEDICAID, SELFPAY ==
--- NOTE | 2021-11-25 01:44 | ED_ITS ---
Documented by User: VANNESA Hopkins 11/25/21 02:46 HPI - Abdominal Pain General: Chief Complaint: Abdominal Pain Stated Complaint: abd pain Time Seen by Provider: 11/25/21 01:42 History of Present Illness: 46-year-old female comes in today with complaints of lower abdominal pain radiating through to her back. Patient has also had persistent episodes of nausea and vomiting for the last 24 hours with episodes of diarrhea. Patient reports that for the last 3 months she has had episodes of nausea and vomiting that correlates with her menstrual cycle. Patient is scheduled to follow-up with a ASSISTANT PROFESSOR IN FAMILY STUDIES regarding to the heavy flow and these menstrual cycle abnormalities. Patient was brought to the ER today due to the inability to hold any fluids or food down for the last 24 hours. Patient has a history of cervical spondylosis, hypertension, morbid obesity, pulmonary embolism, type 2 diabetes, chronic pain, chronic migraine, anxiety disorder and major depression. MD elicited complaint: abdominal pain Onset (ago): day(s) Pain Consistency: intermittent Associated Symptoms: Reports diarrhea, nausea and vomiting; Denies fever(s) Related Data: Date of Last Menstrual Period: 01/21/21 Review of Systems General: Reports: 10 or more systems reviewed and unremarkable except in HPI and below Const: Denies: fever(s) Card: Denies: chest pain Resp: Denies: dyspnea GI: Reports: abdominal pain, nausea, vomiting and diarrhea : Denies: difficulty voiding Musc: Reports: back pain Skin/Breast: Denies: rash PFSH ED PFSH: Medical History Anxiety Chiari malformation Chronic migraine Chronic neck and back pain Chronic neck pain Chronic pain Diabetes mellitus Diverticulitis Dysphonia Juvencio-Danlos syndrome Encounter for long-term use of opiate analgesic Generalized anxiety disorder Hip pain, bilateral Major depressive disorder, recurrent, moderate Neck pain Opioid contract exists Physical deconditioning Pneumonia due to COVID-19 virus Psychiatric care TMJ (dislocation of temporomandibular joint) Surgical History History of foot surgery S/P carpal tunnel release S/P section S/P cholecystectomy 02/09/2019 [place] teeth extracted Family History Father Hypertension Grandmother Family history of premature coronary artery disease Social History Smoking and tobacco status: never smoked Second hand smoke exposure: No Smoking risk assessment/counseling performed?: Yes Alcohol intake: never Lives independently: Yes Household members: spouse Housing: House Marital status: Current occupational status: disabled Pets and animals: Yes History of recent travel: No Current gender identity: Female Female Reproductive History: Date of last menstrual period: 01/21/21 Physical Exam Const: COMMON NORMALS: alert HENMT: COMMON NORMALS: normocephalic HEAD & SCALP: normocephalic MOUTH: Abnormal oral and palatal mucosa present (Mildly dry) Neck/C-Spine: COMMON NORMALS: full ROM Resp: COMMON NORMALS: normal respiratory effort and clear to auscultation bilaterally AUSCULTATION: clear to auscultation bilaterally Cardio: COMMON NORMALS: regular rate and regular rhythm RATE: regular rate RHYTHM: regular rhythm GI: COMMON NORMALS: Soft to palpation PALPATION: Yes Soft to palpation and Yes Tenderness to palpation present (GI) (Lower abdomen) : COMMON NORMALS: Yes no CVA tenderness BLADDER/KIDNEY EXAM: Yes no CVA tenderness Back/Pelvis: COMMON NORMALS: no CVA tenderness Extremity: COMMON NORMALS: no pedal edema Neuro: SENSORIUM/ORIENTATION: Yes alert Skin: COMMON NORMALS: no rashes or lesions noted GENERAL SKIN EXAM: no rashes or lesions noted Course Vital Signs: Vital signs: Vital Signs Temperature 96.9 F L 11/25/21 01:47 Pulse Rate 86 11/25/21 01:47 Respiratory Rate 18 11/25/21 03:41 Blood Pressure 160/111 11/25/21 01:47 Pulse Oximetry 98 11/25/21 01:47 MDM - Abdominal Pain Medical Decision Making Patient comes in today due to persistent nausea and vomiting without being able to hold any fluids or food down. Patient reports some lower abdominal pain. Patient was treated by EMS with 100 mg of fentanyl, 8 mg of ondansetron, and 500 mL of fluid. Patient was resting well on my evaluation. Abdomen is soft with some mild tenderness in lower abdomen. Bowel sounds are hyperactive. Skin was warm and dry. Vital signs were normal except for some elevation in blood pressure 160 systolic. Differential diagnosis includes diverticulitis, colitis, bowel obstruction, gastroenteritis. Lab Data : 11/25/21 01:53 11/25/21 01:53 Labs/Radiology: Radiology Impressions Abdomen/Pelvis CT 11/25/21 01:51 IMPRESSION: 1. No free air or bowel distention. 2. No findings to strongly suggest diverticulitis or colitis, see above. 3. No evidence to suggest appendicitis. 4. Possibly some thickening of the lower esophagus, see above discussion. 5. Other findings discussed above. Laboratory Results WBC 8.1 10^3/uL (4.0-10.0) 11/25/21 01:53 RBC 4.42 10^6/uL (4.1-5.3) 11/25/21 01:53 Hgb 11.3 g/dL (11.5-15.3) L 11/25/21 01:53 Hct 38.2 % (37.0-47.0) 11/25/21 01:53 MCV 86.4 fl (81-99) 11/25/21 01:53 MCH 25.6 pg (28.0-34.0) L 11/25/21 01:53 MCHC 29.6 g/dL (30.0-36.0) L 11/25/21 01:53 RDW 15.4 % (12.1-15.1) H 11/25/21 01:53 Plt Count 137 10^3/cmm (130-400) 11/25/21 01:53 MPV 11.5 fL (7.4-10.4) H 11/25/21 01:53 Neut % (Auto) 79.6 % 11/25/21 01:53 Lymph % (Auto) 11.6 % 11/25/21 01:53 [place] % (Auto) 7.4 % 11/25/21 01:53 Eos % (Auto) 0.7 % 11/25/21 01:53 Baso % (Auto) 0.5 % 11/25/21 01:53 Neut # (Auto) 6.44 10^3/uL (1.8-7.7) 11/25/21 01:53 Lymph # (Auto) 0.9 10^3/uL (0.8-4.8) 11/25/21 01:53 [place] # (Auto) 0.6 10^3/uL (0.2-0.9) 11/25/21 01:53 Eos # (Auto) 0.1 10^3/uL (0.0-0.8) 11/25/21 01:53 Baso # (Auto) 0.0 10^3/uL (0.0-0.1) 11/25/21 01:53 Nucleated RBC % (auto) 0 % 11/25/21 01:53 Nucleated RBCs # 0.0 /100WBC 11/25/21 01:53 Sodium 136 mmol/L (136-145) 11/25/21 01:53 Potassium 3.6 mmol/L (3.5-5.1) 11/25/21 01:53 Chloride 104 mmol/L (98-107) 11/25/21 01:53 Carbon Dioxide 20 mmol/L (22-29) L 11/25/21 01:53 Anion Gap 15.6 (5-19) 11/25/21 01:53 BUN 14 mg/dL (6-20) 11/25/21 01:53 Creatinine 0.8 mg/dL (0.5-0.9) 11/25/21 01:53 GFR Calculation 76.9 mL/min (90-130) L 11/25/21 01:53 Glucose 146 mg/dL (65-115) H 11/25/21 01:53 Calculated Osmolality 285 mOsm/kg (285-295) 11/25/21 01:53 Calcium 8.6 mg/dL (8.5-10.5) 11/25/21 01:53 Total Bilirubin 0.6 mg/dL (0.15-1.2) 11/25/21 01:53 AST 79 U/L (0-32) H 11/25/21 01:53 ALT 47 U/L (0-33) H 11/25/21 01:53 Alkaline Phosphatase 99 IU/L (35-105) 11/25/21 01:53 Troponin T Gen 5 ng/L 6 ng/L (0-10) 11/25/21 01:53 Total Protein 7.0 g/dL (6.6-8.7) 11/25/21 01:53 Albumin 4.1 g/dL (3.5-5.2) 11/25/21 01:53 Globulin 2.9 g/dL (1.3-4.6) 11/25/21 01:53 Lipase 38 U/L (13-60) 11/25/21 01:53 HCG, Qual Negative (Negative) 11/25/21 01:53 Urine Color Yellow (Yellow) 11/25/21 05:59 Urine Appearance Clear (CLEAR) 11/25/21 05:59 Urine pH 5 (5-7) 11/25/21 05:59 Ur Specific [place] 1.005 (1.005-1.030) 11/25/21 05:59 Urine Protein Neg (Negative) 11/25/21 05:59 Urine Glucose (UA) Norm (Normal) 11/25/21 05:59 Urine Ketones Negative (Negative) 11/25/21 05:59 Urine Blood Neg (Negative) 11/25/21 05:59 Urine Nitrate Negative (Negative) 11/25/21 05:59 Urine Bilirubin Neg (Negative) 11/25/21 05:59 Urine Urobilinogen 1 mg/dL (Negative) H 11/25/21 05:59 Ur Leukocyte Esterase Negative (Negative) 11/25/21 05:59 Discharge Plan Discharge Patient Disposition: Home Clinical Impression: Abdominal pain Condition: Stable Prescriptions: Discontinued ondansetron HCl 4 mg tablet See Rx Instructions .ROUTE .COMPLEX Qty: 30 0RF Dose Instruction: TAKE ONE TABLET BY MOUTH EVERY 6 HOURS Rx Instructions: TAKE ONE TABLET BY MOUTH EVERY 6 HOURS No Action omeprazole 20 mg capsule,delayed release(DR/EC) 20 mg PO DAILY 0RF albuterol sulfate 2.5 mg /3 mL (0.083 %) solution for nebulization 2.5 mg INHALATION Q6H PRN (Reason: shortness of breath or wheezing) Qty: 180 3RF albuterol sulfate 90 mcg/actuation HFA aerosol inhaler 2 puff INHALATION QID PRN (Reason: Shortness Of Breath) Qty: 18 3RF gabapentin 800 mg tablet 800 mg PO Q6H 30 Days Qty: 120 1RF sertraline 100 mg tablet 200 mg PO DAILY Qty: 60 2RF Wellbutrin XL 300 mg tablet extended release 24 hr 300 mg PO QAM Qty: 30 2RF acetaminophen 500 mg capsule 500 mg PO Q4H PRN (Reason: Pain) 0RF chlorpheniramine maleate [Allergy (chlorpheniramine)] 4 mg tablet 4 mg PO DAILY 0RF melatonin 3 mg capsule 6 mg PO BEDTIME PRN (Reason: Insomnia) 0RF (DME) blood sugar diagnostic Strip See Rx Instructions .ROUTE .MEDSUPPLY Qty: 200 3RF Rx Instructions: As directed to test blood sugar 1-2 times a day (DME) blood-glucose meter [Blood Glucose Monitoring] Kit See Rx Instructions .ROUTE .MEDSUPPLY Qty: 1 0RF Rx Instructions: As directed to test 1-2 time a day (DME) lancets 33 gauge misc See Rx Instructions .ROUTE .MEDSUPPLY Qty: 200 3RF Rx Instructions: As directed to test blood sugar 1-2 times a day. cyclobenzaprine 10 mg tablet 20 mg PO BID PRN (Reason: muscle spasm) Qty: 120 1RF nystatin 100,000 unit/gram cream See Rx Instructions .ROUTE .COMPLEX Qty: 30 3RF Dose Instruction: APPLY CREAM TWICE A DAY Rx Instructions: APPLY CREAM TWICE A DAY buspirone 15 mg tablet 15 mg PO BID PRN (Reason: anxiety) 30 Days Qty: 60 1RF metoprolol succinate 50 mg tablet extended release 24 hr 50 mg PO BID 0RF ondansetron HCl 4 mg tablet 4 mg PO Q6H PRN (Reason: Nausea) 0RF Eliquis 5 mg tablet 5 mg PO BID 0RF hydrocodone-acetaminophen 5-325 mg tablet 1 tab PO Q6H PRN (Reason: pain (scale score 7-10)) Qty: 10 0RF ondansetron 4 mg tablet,disintegrating 4 mg PO Q8H PRN (Reason: nausea and vomiting) Qty: 7 0RF cephalexin 500 mg capsule 500 mg PO BID 7 Days Qty: 14 0RF Discharge Orders: Discharge ED (Routine); Ordered 11/25/21 Ordered By: Kiran Villaseñor Referrals: Chano Renee DO [Primary Care Provider] - 1-3 days Patient Instructions: Abdominal Pain (ED) Activity Restrictions/Additional Instructions: Return for fever greater than 100, vomiting liquids or medications despite treatment, blood in the stool, other concerning symptoms. Take the medication prescribed every 6 hours while awake for the first 24 hours, then as needed. Follow-up with your doctor, as further outpatient tests may be needed. Coding Level of Care Code ED Fire Alarm Technician for Chg Fwd Exam Comprehensive Documented by User: Kiran Villaseñor DO 11/27/21 01:57 HPI - Abdominal Pain General: Chief Complaint: Abdominal Pain Stated Complaint: abd pain Time Seen by Provider: 11/25/21 01:42 PFSH ED PFSH: Medical History Anxiety Chiari malformation Chronic migraine Chronic neck and back pain Chronic neck pain Chronic pain Diabetes mellitus Diverticulitis Dysphonia Juvencio-Danlos syndrome Encounter for long-term use of opiate analgesic Generalized anxiety disorder Hip pain, bilateral Major depressive disorder, recurrent, moderate Neck pain Opioid contract exists Physical deconditioning Pneumonia due to COVID-19 virus Psychiatric care TMJ (dislocation of temporomandibular joint) Surgical History History of foot surgery S/P carpal tunnel release S/P section S/P cholecystectomy 02/09/2019 [place] teeth extracted Family History Father Hypertension Grandmother Family history of premature coronary artery disease Social History Smoking and tobacco status: never smoked Second hand smoke exposure: No Smoking risk assessment/counseling performed?: Yes Alcohol intake: never Lives independently: Yes Household members: spouse Housing: House Marital status: Current occupational status: disabled Pets and animals: Yes History of recent travel: No Current gender identity: Female Course Vital Signs: Vital signs: Vital Signs Temperature 96.9 F L 11/25/21 01:47 Pulse Rate 86 11/25/21 01:47 Respiratory Rate 18 11/25/21 03:41 Blood Pressure 160/111 11/25/21 01:47 Pulse Oximetry 98 11/25/21 01:47 MDM - Abdominal Pain Medical Decision Making Patient comes in today due to persistent nausea and vomiting without being able to hold any fluids or food down. Patient reports some lower abdominal pain. Patient was treated by EMS with 100 mg of fentanyl, 8 mg of ondansetron, and 500 mL of fluid. Patient was resting well on my evaluation. Abdomen is soft with some mild tenderness in lower abdomen. Bowel sounds are hyperactive. Skin was warm and dry. Vital signs were normal except for some elevation in blood pressure 160 systolic. Differential diagnosis includes diverticulitis, colitis, bowel obstruction, gastroenteritis. Pt was origially seen by VANNESA Fuentes. I agree with his hx, eval and treatment. She was checked out to me at shift change pending CT results, which are largely negative. She'll be allowed home with symtomatic treatment and close outpt fu. Lab Data : 11/25/21 01:53 11/25/21 01:53 Labs/Radiology: Radiology Impressions Abdomen/Pelvis CT 11/25/21 01:51 IMPRESSION: 1. No free air or bowel distention. 2. No findings to strongly suggest diverticulitis or colitis, see above. 3. No evidence to suggest appendicitis. 4. Possibly some thickening of the lower esophagus, see above discussion. 5. Other findings discussed above. Laboratory Results WBC 8.1 10^3/uL (4.0-10.0) 11/25/21 01:53 RBC 4.42 10^6/uL (4.1-5.3) 11/25/21 01:53 Hgb 11.3 g/dL (11.5-15.3) L 11/25/21 01:53 Hct 38.2 % (37.0-47.0) 11/25/21 01:53 MCV 86.4 fl (81-99) 11/25/21 01:53 MCH 25.6 pg (28.0-34.0) L 11/25/21 01:53 MCHC 29.6 g/dL (30.0-36.0) L 11/25/21 01:53 RDW 15.4 % (12.1-15.1) H 11/25/21 01:53 Plt Count 137 10^3/cmm (130-400) 11/25/21 01:53 MPV 11.5 fL (7.4-10.4) H 11/25/21 01:53 Neut % (Auto) 79.6 % 11/25/21 01:53 Lymph % (Auto) 11.6 % 11/25/21 01:53 [place] % (Auto) 7.4 % 11/25/21 01:53 Eos % (Auto) 0.7 % 11/25/21 01:53 Baso % (Auto) 0.5 % 11/25/21 01:53 Neut # (Auto) 6.44 10^3/uL (1.8-7.7) 11/25/21 01:53 Lymph # (Auto) 0.9 10^3/uL (0.8-4.8) 11/25/21 01:53 [place] # (Auto) 0.6 10^3/uL (0.2-0.9) 11/25/21 01:53 Eos # (Auto) 0.1 10^3/uL (0.0-0.8) 11/25/21 01:53 Baso # (Auto) 0.0 10^3/uL (0.0-0.1) 11/25/21 01:53 Nucleated RBC % (auto) 0 % 11/25/21 01:53 Nucleated RBCs # 0.0 /100WBC 11/25/21 01:53 Sodium 136 mmol/L (136-145) 11/25/21 01:53 Potassium 3.6 mmol/L (3.5-5.1) 11/25/21 01:53 Chloride 104 mmol/L (98-107) 11/25/21 01:53 Carbon Dioxide 20 mmol/L (22-29) L 11/25/21 01:53 Anion Gap 15.6 (5-19) 11/25/21 01:53 BUN 14 mg/dL (6-20) 11/25/21 01:53 Creatinine 0.8 mg/dL (0.5-0.9) 11/25/21 01:53 GFR Calculation 76.9 mL/min (90-130) L 11/25/21 01:53 Glucose 146 mg/dL (65-115) H 11/25/21 01:53 Calculated Osmolality 285 mOsm/kg (285-295) 11/25/21 01:53 Calcium 8.6 mg/dL (8.5-10.5) 11/25/21 01:53 Total Bilirubin 0.6 mg/dL (0.15-1.2) 11/25/21 01:53 AST 79 U/L (0-32) H 11/25/21 01:53 ALT 47 U/L (0-33) H 11/25/21 01:53 Alkaline Phosphatase 99 IU/L (35-105) 11/25/21 01:53 Troponin T Gen 5 ng/L 6 ng/L (0-10) 11/25/21 01:53 Total Protein 7.0 g/dL (6.6-8.7) 11/25/21 01:53 Albumin 4.1 g/dL (3.5-5.2) 11/25/21 01:53 Globulin 2.9 g/dL (1.3-4.6) 11/25/21 01:53 Lipase 38 U/L (13-60) 11/25/21 01:53 HCG, Qual Negative (Negative) 11/25/21 01:53 Urine Color Yellow (Yellow) 11/25/21 05:59 Urine Appearance Clear (CLEAR) 11/25/21 05:59 Urine pH 5 (5-7) 11/25/21 05:59 Ur Specific [place] 1.005 (1.005-1.030) 11/25/21 05:59 Urine Protein Neg (Negative) 11/25/21 05:59 Urine Glucose (UA) Norm (Normal) 11/25/21 05:59 Urine Ketones Negative (Negative) 11/25/21 05:59 Urine Blood Neg (Negative) 11/25/21 05:59 Urine Nitrate Negative (Negative) 11/25/21 05:59 Urine Bilirubin Neg (Negative) 11/25/21 05:59 Urine Urobilinogen 1 mg/dL (Negative) H 11/25/21 05:59 Ur Leukocyte Esterase Negative (Negative) 11/25/21 05:59 Discharge Plan Discharge Patient Disposition: Home Clinical Impression: Abdominal pain Condition: Stable Prescriptions: Discontinued ondansetron HCl 4 mg tablet See Rx Instructions .ROUTE .COMPLEX Qty: 30 0RF Dose Instruction: TAKE ONE TABLET BY MOUTH EVERY 6 HOURS Rx Instructions: TAKE ONE TABLET BY MOUTH EVERY 6 HOURS No Action omeprazole 20 mg capsule,delayed release(DR/EC) 20 mg PO DAILY 0RF albuterol sulfate 2.5 mg /3 mL (0.083 %) solution for nebulization 2.5 mg INHALATION Q6H PRN (Reason: shortness of breath or wheezing) Qty: 180 3RF albuterol sulfate 90 mcg/actuation HFA aerosol inhaler 2 puff INHALATION QID PRN (Reason: Shortness Of Breath) Qty: 18 3RF gabapentin 800 mg tablet 800 mg PO Q6H 30 Days Qty: 120 1RF sertraline 100 mg tablet 200 mg PO DAILY Qty: 60 2RF Wellbutrin XL 300 mg tablet extended release 24 hr 300 mg PO QAM Qty: 30 2RF acetaminophen 500 mg capsule 500 mg PO Q4H PRN (Reason: Pain) 0RF chlorpheniramine maleate [Allergy (chlorpheniramine)] 4 mg tablet 4 mg PO DAILY 0RF melatonin 3 mg capsule 6 mg PO BEDTIME PRN (Reason: Insomnia) 0RF (DME) blood sugar diagnostic Strip See Rx Instructions .ROUTE .MEDSUPPLY Qty: 200 3RF Rx Instructions: As directed to test blood sugar 1-2 times a day (DME) blood-glucose meter [Blood Glucose Monitoring] Kit See Rx Instructions .ROUTE .MEDSUPPLY Qty: 1 0RF Rx Instructions: As directed to test 1-2 time a day (DME) lancets 33 gauge misc See Rx Instructions .ROUTE .MEDSUPPLY Qty: 200 3RF Rx Instructions: As directed to test blood sugar 1-2 times a day. cyclobenzaprine 10 mg tablet 20 mg PO BID PRN (Reason: muscle spasm) Qty: 120 1RF nystatin 100,000 unit/gram cream See Rx Instructions .ROUTE .COMPLEX Qty: 30 3RF Dose Instruction: APPLY CREAM TWICE A DAY Rx Instructions: APPLY CREAM TWICE A DAY buspirone 15 mg tablet 15 mg PO BID PRN (Reason: anxiety) 30 Days Qty: 60 1RF metoprolol succinate 50 mg tablet extended release 24 hr 50 mg PO BID 0RF ondansetron HCl 4 mg tablet 4 mg PO Q6H PRN (Reason: Nausea) 0RF Eliquis 5 mg tablet 5 mg PO BID 0RF hydrocodone-acetaminophen 5-325 mg tablet 1 tab PO Q6H PRN (Reason: pain (scale score 7-10)) Qty: 10 0RF ondansetron 4 mg tablet,disintegrating 4 mg PO Q8H PRN (Reason: nausea and vomiting) Qty: 7 0RF cephalexin 500 mg capsule 500 mg PO BID 7 Days Qty: 14 0RF Discharge Orders: Discharge ED (Routine); Ordered 11/25/21 Ordered By: Kiran Villaseñor Referrals: Chano Renee DO [Primary Care Provider] - 1-3 days Patient Instructions: Abdominal Pain (ED) Activity Restrictions/Additional Instructions: Return for fever greater than 100, vomiting liquids or medications despite yasemin atment, blood in the stool, other concerning symptoms. Take the medication prescribed every 6 hours while awake for the first 24 hours, then as needed. Follow-up with your doctor, as further outpatient tests may be needed. Coding Level of Care Code ED Fire Alarm Technician for Annag Fwd Exam Comprehensive
[2021-11-25 01:47] VITALS: BP 160/111; PULSE 86; RESP 18; TEMP 36.1; O2SAT 98; BMI 46.5
--- NOTE | 2021-11-25 01:51 | CTR_ITS ---
PROCEDURE INFORMATION: Exam: CT Abdomen And Pelvis With Contrast Exam date and time: 11/25/2021 3:00 AM Age: 46 years old Clinical indication: Nausea and other: Diarrhea; Abdominal pain; Localized; Lower; Additional info: Lower abd pain, n/v/d TECHNIQUE: Imaging protocol: Computed tomography of the abdomen and pelvis with contrast. Radiation optimization: All CT scans at this facility use at least one of these dose optimization techniques: automated exposure control; mA and/or kV adjustment per patient size (includes targeted exams where dose is matched to clinical indication); or iterative reconstruction. Contrast material: OMNI 300; Contrast volume: 95 ml; Contrast route: INTRAVENOUS (IV); COMPARISON: CT abdomen pelvis w con* [id number] 02/25/2020 9:10 AM RADIATION DOSE METRICS: Total DLP (mGy-cm): 1910.6 FINDINGS: Lungs: The lung bases are clear. Mediastinal space: There may be some mucosal/wall thickening involving the lower esophagus. This is nonspecific, but could represent evidence for esophagitis. Please correlate clinically. Liver: There is mild fatty infiltration of the liver. The liver appears mildly enlarged, with right lobe length of 20-21 cm. No definite/significant focal hepatic abnormality. Gallbladder and bile ducts: Prior cholecystectomy, no significant biliary tree dilation. Pancreas: Unremarkable. Spleen: Unremarkable. Adrenal glands: Unremarkable. Kidneys and ureters: Unremarkable. Stomach and bowel: No significant bowel distention. There are no CT findings to strongly suggest diverticulitis or colitis. Negative CT does not entirely exclude colitis, so follow-up may be helpful, as clinically directed. Appendix: A very small/thin appendix is probably identified, and there are no suspicious findings for appendicitis. No pericecal inflammatory changes are seen. Intraperitoneal space: No free intraperitoneal air, or ascites. Vasculature: No evidence for abdominal aortic aneurysm. Lymph nodes: No retroperitoneal adenopathy. Urinary bladder: Unremarkable as visualized. Reproductive: Essentially unremarkable for age. Bones/joints: No significant acute finding. Soft tissues: No significant acute finding. CT/CT abdomen pelvis w con* [id number] IMPRESSION: 1. No free air or bowel distention. 2. No findings to strongly suggest diverticulitis or colitis, see above. 3. No evidence to suggest appendicitis. 4. Possibly some thickening of the lower esophagus, see above discussion. 5. Other findings discussed above.
[2021-11-25 02:02] LABS: Basophils % 0.5 %; Eosinophils # 0.1 10^3/uL (0.0-0.8); Eosinophils % 0.7 %; Hematocrit 38.2 % (37.0-47.0); Hemoglobin 11.3 g/dL (11.5-15.3); Lymphocytes # 0.9 10^3/uL (0.8-4.8); Lymphocytes % 11.6 %; Mean Corpuscular HGB Conc 29.6 g/dL (30.0-36.0); Mean Corpuscular Hemoglobin 25.6 pg (28.0-34.0); Mean Corpuscular Volume 86.4 fl (81-99); Mean Platelet Volume 11.5 fL (7.4-10.4); Monocytes # 0.6 10^3/uL (0.2-0.9); Monocytes % 7.4 %; Neutrophils # 6.44 10^3/uL (1.8-7.7); Neutrophils % 79.6 %; Nucleated Red Blood Cells % 0 %; Platelet Count 137 10^3/cmm (130-400); Red Blood Count 4.42 10^6/uL (4.1-5.3); Red Cell Distribution Width 15.4 % (12.1-15.1); White Blood Count 8.1 10^3/uL (4.0-10.0)
[2021-11-25] MEDS: sodium chloride 0.9% 1,000 ML 999 ML IV ×2 (02:17→05:06)
[2021-11-25 02:26] LABS: Troponin T (5th) Once 6 ng/L (0-10)
[2021-11-25 02:29] LABS: Alanine Aminotransferase 47 U/L (0-33); Albumin Level 4.1 g/dL (3.5-5.2); Alkaline Phosphatase 99 IU/L (35-105); Anion Gap 15.6 (5-19); Aspartate Amino Transferase 79 U/L (0-32); Blood Urea Nitrogen 14 mg/dL (6-20); Calcium 8.6 mg/dL (8.5-10.5); Carbon Dioxide 20 mmol/L (22-29); Chloride 104 mmol/L (98-107); Globulin 2.9 g/dL (1.3-4.6); Glomerular Filtration Rate 76.9 mL/min (90-130); Glucose 146 mg/dL (65-115); Lipase 38 U/L (13-60); Osmolality Calculated 285 mOsm/kg (285-295); Potassium 3.6 mmol/L (3.5-5.1); Sodium 136 mmol/L (136-145); Total Bilirubin 0.6 mg/dL (0.15-1.2)
[2021-11-25 02:30] LABS: HCG, Serum Qual Negative (Negative)
[2021-11-25] MEDS: iohexol 300 mg/mL 100 mL Btl IV (02:59)
[2021-11-25 03:41] VITALS: RESP 18
[2021-11-25] MEDS: morphine 4 mg/mL SDV 1 mL IVP ×2 (03:41→05:06)
[2021-11-25] MEDS: ondansetron 2 mg/ML SDV 2 mL 4 MG IVP ×2 (03:41→05:06)
[2021-11-25] MEDS: ketorolac 30 mg/mL INJ 15 MG IVP (05:06)
[2021-11-25] MEDS: lidocaine 2% viscous 15 ML, aluminum-mag hydrox-simethicon 30 ML, sucralfate oral liq 1 GM PO (05:25)
[2021-11-25 06:20] LABS: Add Urine Microscopic? NO; Charge for UA Resulting for Rev
[2021-11-25 06:32] LABS: Bilirubin Urine Neg (Negative); Blood Urine Neg (Negative); Glucose Urine UA Norm (Normal); Ketones Urine Negative (Negative); Leukocyte Esterase Urine Negative (Negative); Nitrate Urine Negative (Negative); Protein Urine Neg (Negative); Specific Gravity, Urine 1.005 (1.005-1.030); Urine Appearance Clear (CLEAR); Urine Color Yellow (Yellow); Urobilinogen Urine 1 mg/dL (Negative); pH Urine 5 (5-7)
== END 2021-11-25 07:07 | disposition home or self-care (01) ==
PROVIDERS: Nurse Practitioner Family; Emergency Provider Emergency Medicine; PCP Family Medicine
DX: R10.9 Unspecified abdominal pain (principal); Z79.01 Long term (current) use of anticoagulants; Z79.891 Long term (current) use of opiate analgesic; E11.9 Type 2 diabetes mellitus without complications; Z86.711 Personal history of pulmonary embolism; G89.29 Other chronic pain
CPT/HCPCS: 74177; 80053; 81003; 83690; 84484; 84703; 85025; 96361; 96374; 96375; 96376; 99284; J1885; J2270; J2405; J7030; Q9967

== ENCOUNTER 2021-11-25 18:29 | Emergency (ER) | payer MEDICARE, MEDICAID, SELFPAY ==
[2021-11-25 18:33] VITALS: BP 120/71; PULSE 109; RESP 20; TEMP 36.7; O2SAT 98; BMI 46.0
[2021-11-25 18:56] VITALS: BP 165/92; PULSE 108; RESP 20; TEMP 37.2; O2SAT 97
--- NOTE | 2021-11-25 18:59 | W.ED.ABDPA2 ---
HPI - Abdominal Pain General: Chief Complaint: Abdominal Pain Stated Complaint: ABDOMINAL PAIN/ N/V Time Seen by Provider: 11/25/21 18:53 History of Present Illness: 46-year-old female comes in today with complaints of suprapubic abdominal pain. Patient reports pain on and off for the last 3 months. Patient was seen yesterday and was treated for nausea vomiting with epigastric abdominal pain today patient reports that the pain seems to be lower and she is also suffering from diarrhea. Patient has been told by her primary care that she may have endometriosis causing some of her pain. Patient is waiting for evaluation by [facility] C[facility] specialist. Review of labs and CT scan from last night indicated no significant abnormality. Associated Symptoms: Reports diarrhea, nausea and vomiting; Denies fever(s) Related Data: Date of Last Menstrual Period: 01/21/21 Review of Systems General: Reports: 10 or more systems reviewed and unremarkable except in HPI and below Const: Denies: fever(s) Card: Denies: chest pain Resp: Denies: dyspnea GI: Reports: abdominal pain, nausea, vomiting and diarrhea : Reports: pelvic pain Musc: Denies: back pain PFSH ED PFSH: Medical History Anxiety Chiari malformation Chronic migraine Chronic neck and back pain Chronic neck pain Chronic pain Diabetes mellitus Diverticulitis Dysphonia Juvencio-Danlos syndrome Encounter for long-term use of opiate analgesic Generalized anxiety disorder Hip pain, bilateral Major depressive disorder, recurrent, moderate Neck pain Opioid contract exists Physical deconditioning Pneumonia due to COVID-19 virus Psychiatric care TMJ (dislocation of temporomandibular joint) Surgical History History of foot surgery S/P carpal tunnel release S/P section S/P cholecystectomy 02/09/2019 [place] teeth extracted Family History Father Hypertension Grandmother Family history of premature coronary artery disease Social History Smoking and tobacco status: never smoked Second hand smoke exposure: No Smoking risk assessment/counseling performed?: Yes Alcohol intake: never Lives independently: Yes Household members: spouse Housing: House Marital status: Current occupational status: disabled Pets and animals: Yes History of recent travel: No Current gender identity: Female Female Reproductive History: Date of last menstrual period: 01/21/21 Physical Exam Const: COMMON NORMALS: alert HENMT: COMMON NORMALS: normocephalic HEAD & SCALP: normocephalic Neck/C-Spine: COMMON NORMALS: full ROM Resp: COMMON NORMALS: normal respiratory effort and clear to auscultation bilaterally AUSCULTATION: clear to auscultation bilaterally Cardio: COMMON NORMALS: regular rate and regular rhythm RATE: regular rate RHYTHM: regular rhythm GI: COMMON NORMALS: Soft to palpation AUSCULTATION: Yes Hyperactive bowel sounds present PALPATION: Yes Soft to palpation : COMMON NORMALS: Yes no CVA tenderness BLADDER/KIDNEY EXAM: Yes no CVA tenderness Back/Pelvis: COMMON NORMALS: no CVA tenderness Extremity: COMMON NORMALS: full ROM Neuro: SENSORIUM/ORIENTATION: Yes alert Skin: COMMON NORMALS: no rashes or lesions noted GENERAL SKIN EXAM: no rashes or lesions noted Course Vital Signs: Vital signs: Vital Signs Temperature 98.9 F 11/25/21 23:26 Pulse Rate 112 H 11/25/21 23:26 Respiratory Rate 16 11/26/21 00:24 Blood Pressure 149/84 11/25/21 23:26 Pulse Oximetry 97 11/25/21 23:26 MDM - Abdominal Pain Medical Decision Making 46-year-old female comes in today with complaints of pelvic pain. Patient reports worsening pelvic pain over the last 24 hours. Patient was seen yesterday for persistent nausea and vomiting with some mild abdominal/pelvic pain. Patient was evaluated and had unremarkable laboratory values and a CT scan that was insignificant. Exam today notes abdomen soft bowel sounds are present throughout. Patient does have some mild tenderness in the suprapubic area. Respirations are even lungs are clear to auscultation. Skin is warm and dry. Vital signs are normal except for some mild tachycardia at 109, and respirations at 20. Differential diagnosis includes but not limited to gastroenteritis, ovarian cyst, endometriosis. CBC and CMP did indicate may be some mild dehydration. Urinalysis had some white blood cells suggestive of possible urinary tract infection. I reviewed this with Dr. Menjivar who thought patient probably had a urinary tract infection. Ultrasound of the pelvis was unremarkable. Patient has been dealing with this recurrent pelvic pain with gastrointestinal symptoms for the last 4 months. Patient been waiting to get into [facility] as they think it may be related to her premenopause. I will place a case management report to help with further evaluation of pelvic pain and irregular periods with increasing bleeding. Patient be treated for her abdominal pain with some hydrocodone at home, we refilled her ondansetron, and will continue some cephalexin for the possible urinary tract infection. Patient family reported understanding and agreed to plan. Lab Data : 11/25/21 19:52 11/25/21 19:52 Labs/Radiology: Laboratory Results WBC 6.3 10^3/uL (4.0-10.0) 11/25/21 19:52 RBC 4.14 10^6/uL (4.1-5.3) 11/25/21 19:52 Hgb 10.8 g/dL (11.5-15.3) L 11/25/21 19:52 Hct 35.4 % (37.0-47.0) L 11/25/21 19:52 MCV 85.5 fl (81-99) 11/25/21 19:52 MCH 26.1 pg (28.0-34.0) L 11/25/21 19:52 MCHC 30.5 g/dL (30.0-36.0) 11/25/21 19:52 RDW 15.6 % (12.1-15.1) H 11/25/21 19:52 Plt Count 135 10^3/cmm (130-400) 11/25/21 19:52 MPV 11.5 fL (7.4-10.4) H 11/25/21 19:52 Neut % (Auto) 78.3 % 11/25/21 19:52 Lymph % (Auto) 13.6 % 11/25/21 19:52 [place] % (Auto) 6.7 % 11/25/21 19:52 Eos % (Auto) 0.5 % 11/25/21 19:52 Baso % (Auto) 0.6 % 11/25/21 19:52 Neut # (Auto) 4.94 10^3/uL (1.8-7.7) 11/25/21 19:52 Lymph # (Auto) 0.9 10^3/uL (0.8-4.8) 11/25/21 19:52 [place] # (Auto) 0.4 10^3/uL (0.2-0.9) 11/25/21 19:52 Eos # (Auto) 0.0 10^3/uL (0.0-0.8) 11/25/21 19:52 Baso # (Auto) 0.0 10^3/uL (0.0-0.1) 11/25/21 19:52 Nucleated RBC % (auto) 0 % 11/25/21 19:52 Nucleated RBCs # 0.0 /100WBC 11/25/21 19:52 Sodium 133 mmol/L (136-145) L 11/25/21 19:52 Potassium 3.8 mmol/L (3.5-5.1) 11/25/21 19:52 Chloride 105 mmol/L (98-107) 11/25/21 19:52 Carbon Dioxide 15 mmol/L (22-29) L 11/25/21 19:52 Anion Gap 16.8 (5-19) 11/25/21 19:52 BUN 11 mg/dL (6-20) 11/25/21 19:52 Creatinine 0.7 mg/dL (0.5-0.9) 11/25/21 19:52 GFR Calculation 89.7 mL/min (90-130) L 11/25/21 19:52 Glucose 155 mg/dL (65-115) H 11/25/21 19:52 Calculated Osmolality 279 mOsm/kg (285-295) L 11/25/21 19:52 Calcium 8.2 mg/dL (8.5-10.5) L 11/25/21 19:52 Total Bilirubin 0.5 mg/dL (0.15-1.2) 11/25/21 19:52 AST 66 U/L (0-32) H 11/25/21 19:52 ALT 68 U/L (0-33) H 11/25/21 19:52 Alkaline Phosphatase 107 IU/L (35-105) H 11/25/21 19:52 Total Protein 6.6 g/dL (6.6-8.7) 11/25/21 19:52 Albumin 3.9 g/dL (3.5-5.2) 11/25/21 19:52 Globulin 2.7 g/dL (1.3-4.6) 11/25/21 19:52 Urine Color Yellow (Yellow) 11/25/21 19:55 Urine Appearance Clear (CLEAR) 11/25/21 19:55 Urine pH 5 (5-7) 11/25/21 19:55 Ur Specific [place] 1.030 (1.005-1.030) 11/25/21 19:55 Urine Protein 1+ (Negative) H 11/25/21 19:55 Urine Glucose (UA) Norm (Normal) 11/25/21 19:55 Urine Ketones 1+ (Negative) H 11/25/21 19:55 Urine Blood Neg (Negative) 11/25/21 19:55 Urine Nitrate Negative (Negative) 11/25/21 19:55 Urine Bilirubin 1+ (Negative) H 11/25/21 19:55 Urine Urobilinogen Norm mg/dL (Negative) 11/25/21 19:55 Ur Leukocyte Esterase 1+ (Negative) H 11/25/21 19:55 Urine RBC 0-4 /hpf (0-2) H 11/25/21 19:55 Urine WBC 5-10 /hpf (0-5) H 11/25/21 19:55 Ur Squamous Epith Cells 0-4 /hpf (0-5) H 11/25/21 19:55 Amorphous Sediment Not Reportable 11/25/21 19:55 Urine Bacteria 2+ /hpf (NONE) H 11/25/21 19:55 Discharge Plan Discharge Patient Disposition: Home Clinical Impression: Pelvic pain UTI (urinary tract infection) Qualifiers: Urinary tract infection type: acute cystitis Hematuria presence: without hematuria Qualified Code(s): N30.00 - Acute cystitis without hematuria Condition: Stable Prescriptions: New hydrocodone-acetaminophen 5-325 mg tablet 1 tab PO Q6H PRN (Reason: pain (scale score 7-10)) Qty: 10 0RF ondansetron 4 mg tablet,disintegrating 4 mg PO Q8H PRN (Reason: nausea and vomiting) Qty: 7 0RF cephalexin 500 mg capsule 500 mg PO BID 7 Days Qty: 14 0RF No Action omeprazole 20 mg capsule,delayed release(DR/EC) 20 mg PO DAILY 0RF albuterol sulfate 2.5 mg /3 mL (0.083 %) solution for nebulization 2.5 mg INHALATION Q6H PRN (Reason: shortness of breath or wheezing) Qty: 180 3RF albuterol sulfate 90 mcg/actuation HFA aerosol inhaler 2 puff INHALATION QID PRN (Reason: Shortness Of Breath) Qty: 18 3RF gabapentin 800 mg tablet 800 mg PO Q6H 30 Days Qty: 120 1RF sertraline 100 mg tablet 200 mg PO DAILY Qty: 60 2RF Wellbutrin XL 300 mg tablet extended release 24 hr 300 mg PO QAM Qty: 30 2RF acetaminophen 500 mg capsule 500 mg PO Q4H PRN (Reason: Pain) 0RF chlorpheniramine maleate [Allergy (chlorpheniramine)] 4 mg tablet 4 mg PO DAILY 0RF melatonin 3 mg capsule 6 mg PO BEDTIME PRN (Reason: Insomnia) 0RF (DME) blood sugar diagnostic Strip See Rx Instructions .ROUTE .MEDSUPPLY Qty: 200 3RF Rx Instructions: As directed to test blood sugar 1-2 times a day (DME) blood-glucose meter [Blood Glucose Monitoring] Kit See Rx Instructions .ROUTE .MEDSUPPLY Qty: 1 0RF Rx Instructions: As directed to test 1-2 time a day (DME) lancets 33 gauge misc See Rx Instructions .ROUTE .MEDSUPPLY Qty: 200 3RF Rx Instructions: As directed to test blood sugar 1-2 times a day. cyclobenzaprine 10 mg tablet 20 mg PO BID PRN (Reason: muscle spasm) Qty: 120 1RF nystatin 100,000 unit/gram cream See Rx Instructions .ROUTE .COMPLEX Qty: 30 3RF Dose Instruction: APPLY CREAM TWICE A DAY Rx Instructions: APPLY CREAM TWICE A DAY buspirone 15 mg tablet 15 mg PO BID PRN (Reason: anxiety) 30 Days Qty: 60 1RF metoprolol succinate 50 mg tablet extended release 24 hr 50 mg PO BID 0RF ondansetron HCl 4 mg tablet 4 mg PO Q6H PRN (Reason: Nausea) 0RF Eliquis 5 mg tablet 5 mg PO BID 0RF Discharge Orders: Discharge ED (Routine); Ordered 11/26/21 Ordered By: Francois Goodwin Referrals: Chano Renee DO [Primary Care Provider] - Discharge Diet: Advance as tolerated Discharge Activity: Increase activity as tolerated Patient Instructions: Abdominal Pain (ED), Opioid Safety Activity Restrictions/Additional Instructions: Home and rest. Use medication as directed for pain. Case management will contact you tomorrow regarding follow-up with [facility]. Monitor for fever greater than 100.4. Return to the ER for persistent nausea and vomiting or uncontrolled abdominal pain. Start with clear liquid diet and increase diet over the next 48 hours to a bland diet avoiding spicy, greasy, and acidic foods. Coding Level of Care Code ED Trolley Worker for Chelsey Fwlise Exam Comprehensive
--- NOTE | 2021-11-25 19:37 | USR_ITS ---
PROCEDURE INFORMATION: Exam: US Pelvis Complete, Transabdominal and US Pelvis, Transvaginal and US Duplex Artery and Vein, Ovaries, Complete Exam date and time: 11/25/2021 11:06 PM Age: 46 years old Clinical indication: Pelvic pain; Prior surgery; Surgery date: 6+ months; Surgery type: section TECHNIQUE: Imaging protocol: Real-time transabdominal and transvaginal pelvic ultrasound (complete) with image documentation. Transvaginal imaging was used for better evaluation of the endometrium, adnexa, and/or cervix. Real-time duplex ultrasound scan of the arterial and venous flow of the ovaries with B-mode, color Doppler flow and spectral waveform analysis. COMPARISON: 1. CT abdomen pelvis w con* [id number] 11/25/2021 3:[address] abdomen pelvis w con* [id number] 02/25/2020 9:10 AM FINDINGS: Uterus: Uterus is normal. Endometrial stripe is normal. Right ovary/adnexa: Ovary is normal. No mass. Normal ovarian blood flow. Arterial and venous spectral Doppler waveforms are unremarkable. Left ovary/adnexa: Ovary is normal. No mass. Normal ovarian blood flow. Arterial and venous spectral Doppler waveforms are unremarkable. Intraperitoneal space: No intraperitoneal fluid. Urinary bladder: Normal. US/US pelvic with transvaginal IMPRESSION: No acute findings.
[2021-11-25 19:43] VITALS: RESP 22; O2SAT 97
[2021-11-25] MEDS: morphine 4 mg/mL SDV 1 mL IVP (19:43)
[2021-11-25] MEDS: ondansetron 2 mg/ML SDV 2 mL 4 MG IVP ×2 (19:43→22:06)
[2021-11-25 19:58] LABS: Basophils % 0.6 %; Eosinophils % 0.5 %; Hematocrit 35.4 % (37.0-47.0); Hemoglobin 10.8 g/dL (11.5-15.3); Lymphocytes # 0.9 10^3/uL (0.8-4.8); Lymphocytes % 13.6 %; Mean Corpuscular HGB Conc 30.5 g/dL (30.0-36.0); Mean Corpuscular Hemoglobin 26.1 pg (28.0-34.0); Mean Corpuscular Volume 85.5 fl (81-99); Mean Platelet Volume 11.5 fL (7.4-10.4); Monocytes # 0.4 10^3/uL (0.2-0.9); Monocytes % 6.7 %; Neutrophils # 4.94 10^3/uL (1.8-7.7); Neutrophils % 78.3 %; Nucleated Red Blood Cells % 0 %; Platelet Count 135 10^3/cmm (130-400); Red Blood Count 4.14 10^6/uL (4.1-5.3); Red Cell Distribution Width 15.6 % (12.1-15.1); White Blood Count 6.3 10^3/uL (4.0-10.0)
[2021-11-25] MEDS: diphenoxylate/atropine Tablet 2 TAB PO (20:19)
[2021-11-25] MEDS: lactated ringers 1,000 ML 999 ML IV ×2 (20:34→22:05)
[2021-11-25 20:41] LABS: Add Urine Microscopic? YES; Bilirubin Urine 1+ (Negative); Blood Urine Neg (Negative); Glucose Urine UA Norm (Normal); Ketones Urine 1+ (Negative); Leukocyte Esterase Urine 1+ (Negative); Nitrate Urine Negative (Negative); Protein Urine 1+ (Negative); Urine Appearance Clear (CLEAR); Urine Color Yellow (Yellow); Urobilinogen Urine Norm (Negative); pH Urine 5 (5-7)
[2021-11-25 20:42] LABS: Add Urine Culture? Yes; Bacteria Urine 2+ /hpf; RBC Urine 0-4 /hpf (0-2); Squamous Epithelial Cell Urine 0-4 /hpf (0-5)
[2021-11-25 20:42] LABS: Alanine Aminotransferase 68 U/L (0-33); Albumin Level 3.9 g/dL (3.5-5.2); Alkaline Phosphatase 107 IU/L (35-105); Anion Gap 16.8 (5-19); Aspartate Amino Transferase 66 U/L (0-32); Blood Urea Nitrogen 11 mg/dL (6-20); Calcium 8.2 mg/dL (8.5-10.5); Carbon Dioxide 15 mmol/L (22-29); Chloride 105 mmol/L (98-107); Globulin 2.7 g/dL (1.3-4.6); Glomerular Filtration Rate 89.7 mL/min (90-130); Glucose 155 mg/dL (65-115); Osmolality Calculated 279 mOsm/kg (285-295); Potassium 3.8 mmol/L (3.5-5.1); Sodium 133 mmol/L (136-145); Total Bilirubin 0.5 mg/dL (0.15-1.2); Total Protein 6.6 g/dL (6.6-8.7)
[2021-11-25 22:05] VITALS: RESP 18
[2021-11-25] MEDS: HYDROmorphone 1 mg/mL INJ 1 mL IVP (22:05)
[2021-11-25 23:26] VITALS: BP 149/84; PULSE 112; RESP 17; TEMP 37.2; O2SAT 97
[2021-11-25] MEDS: cefTRIAXone 1,000 MG in sodium chloride 0.9% (plus) 50 ML 100 MG IV (23:42)
[2021-11-26 00:24] VITALS: RESP 16
[2021-11-26] MEDS: HYDROmorphone 1 mg/mL INJ 1 mL IVP (00:24)
[2021-11-26] MEDS: ondansetron 2 mg/ML SDV 2 mL 4 MG IVP (01:11)
[2021-11-26] MEDS: HYDROcodone-acetaminophen 5-325 mg Tablet 2 TAB PO (01:11)
[2021-11-26 01:20] VITALS: BP 150/86; PULSE 98; RESP 16; O2SAT 94
--- NOTE | 2021-11-26 10:49 | DCPLANNER ---
Addendum entered by Neetu Lynn 12/17/21 21:28: Patient had a follow up appointment scheduled for 12.04.21 with [facility] - patient did attend appointment. Addendum entered by Neetu Lynn 11/27/21 07:53: Patient has a follow up appointment scheduled for Saturday, December 04, 2021 at 9:[address] Sharpe at [facility]. Clinic will call patient with appointment information. Original Note: territory outside sales manager had message to schedule a follow up appointment for patient with [facility]. territory outside sales manager sent patients information to the front staff at [facility] thru the [employer] messaging system. Patients information will be printed and reviewed. Clinic will call patient with appointment information.
== END 2021-11-26 01:27 | disposition home or self-care (01) ==
PROVIDERS: Emergency Provider Nurse Practitioner Family; PCP Family Medicine
DX: N30.00 Acute cystitis without hematuria (principal); Z79.01 Long term (current) use of anticoagulants; R10.9 Unspecified abdominal pain; Z79.891 Long term (current) use of opiate analgesic; E11.9 Type 2 diabetes mellitus without complications; Z86.711 Personal history of pulmonary embolism; G89.29 Other chronic pain
CPT/HCPCS: 36415; 74177; 76830; 76856; 80053; 81001; 81003; 83690; 84484; 84703; 85025; 87086; 96361; 96365; 96374; 96375; 96376; 99284; J0696; J1170; J1885; J2270; J2405; J7030; Q9967

== ENCOUNTER 2021-11-27 08:59 | Emergency (ER) | payer MEDICARE, MEDICAID, SELFPAY ==
[2021-11-27 09:07] VITALS: BP 154/108; PULSE 120; TEMP 37.2; O2SAT 96; BMI 46.0
--- NOTE | 2021-11-27 09:10 | ED_ITS ---
HPI - Abdominal Pain General: Chief Complaint: Abdominal Pain Stated Complaint: ABD PAIN Time Seen by Provider: 11/27/21 09:02 History of Present Illness: 46-year-old presents due to periumbilical left lower quadrant abdominal pain. Was seen 3 days ago for similar episode and is scheduled to follow-up with DEPUT[facility] JUVENILE OFFIC[facility]. At the time of her visit she had unremarkable CT scan and ultrasound of the pelvis. States symptoms have not improved. States she has had nonbloody nonbilious nausea and vomiting but no diarrhea or constipation. States Zofran does not help. Denies any fevers or [place] dysuria or pelvic discharge. Related Data: Date of Last Menstrual Period: 01/21/21 Review of Systems Narrative: - CONSTITUTIONAL: Denies weight loss, fever and chills. - HEENT: Denies changes in vision and hearing. - RESPIRATORY: Denies SOB and cough. - CV: Denies palpitations and CP. - GI: As above - : Denies dysuria and urinary frequency. - MSK: Denies myalgia and joint pain. - SKIN: Denies rash and pruritus. - NEUROLOGICAL: Denies headache, weakness, numbness and syncope. - PSYCHIATRIC: Denies suicidal ideation PFS ED PFSH: Medical History Anxiety Chiari malformation Chronic migraine Chronic neck and back pain Chronic neck pain Chronic pain Diabetes mellitus Diverticulitis Dysphonia Juvencio-Danlos syndrome Encounter for long-term use of opiate analgesic Generalized anxiety disorder Hip pain, bilateral Major depressive disorder, recurrent, moderate Neck pain Opioid contract exists Physical deconditioning Pneumonia due to COVID-19 virus Psychiatric care TMJ (dislocation of temporomandibular joint) Surgical History History of foot surgery S/P carpal tunnel release S/P section S/P cholecystectomy 02/09/2019 [place] teeth extracted Family History Father Hypertension Grandmother Family history of premature coronary artery disease Social History Smoking and tobacco status: never smoked Second hand smoke exposure: No Smoking risk assessment/counseling performed?: Yes Alcohol intake: never Lives independently: Yes Household members: spouse Housing: House Marital status: Current occupational status: disabled Pets and animals: Yes History of recent travel: No Current gender identity: Female Female Reproductive History: Date of last menstrual period: 01/21/21 Physical Exam Narrative: EXAM NARRATIVE: - GENERAL: Alert and oriented x 3. No acute distress. Well-nourished. - EYES: EOMI. Anicteric. - HENT: Atraumatic, no C-spine tenderness. Moist mucous membranes. No scleral icterus. No cervical lymphadenopathy. - LUNGS: Clear to auscultation bilaterally. No accessory muscle use. Equal lung sounds bilaterally. No respiratory distress. - CARDIOVASCULAR: Regular rate and rhythm. No murmur. No JVD. - ABDOMEN: Soft, mild tenderness in left lower quadrant, non-distended. Negative CVA tenderness bilaterally, no rebound or guarding, negative Nicole sign. No palpable masses. - EXTREMITIES: No edema. Non-tender. - SKIN: No rashes or lesions. Warm. - NEUROLOGIC: No meningismus or focal neurological deficits. CN II-XII grossly intact. - PSYCHIATRIC: Cooperative. Appropriate mood and affect. Course Vital Signs: Vital signs: Vital Signs Temperature 99.0 F 11/27/21 09:07 Pulse Rate 119 H 11/27/21 12:00 Blood Pressure 154/113 11/27/21 12:00 Pulse Oximetry 100 11/27/21 12:00 MDM - Abdominal Pain Medical Decision Making 46-year-old presents with abdominal pain nausea and vomiting. UDS positive for cannabinoids. Strongly suspect cyclic vomiting syndrome. Improved with Haldol. In addition patient also had unremarkable pelvic ultrasound and abdominal CT during her last recent visit. LFTs were noted to be elevated so right upper quadrant ultrasound was performed without acute abnormality. Remainder of lab work unremarkable. Prescription for Compazine suppositories provided. Patient is tolerate this medication the past. At this time I believe patient would be safe for discharge and outpatient follow-up. Return precautions provided. Plan was reviewed with the patient who expressed understanding. Questions answered. Patient will follow up with PCP. Patient discharged in stable condition. Lab Data : 11/27/21 09:35 11/27/21 09:35 Labs/Radiology: Radiology Impressions Abdomen Ultrasound 11/27/21 10:43 IMPRESSION: 1. Hepatomegaly with diffuse fatty infiltration. 2. Gallbladder surgically absent. 3. No hydronephrosis in RIGHT kidney. 4. Normal common bile duct. 5. No ascites. Laboratory Results WBC 6.8 10^3/uL (4.0-10.0) 11/27/21 09:35 RBC 4.21 10^6/uL (4.1-5.3) 11/27/21 09:35 Hgb 10.9 g/dL (11.5-15.3) L 11/27/21 09:35 Hct 35.5 % (37.0-47.0) L 11/27/21 09:35 MCV 84.3 fl (81-99) 11/27/21 09:35 MCH 25.9 pg (28.0-34.0) L 11/27/21 09:35 MCHC 30.7 g/dL (30.0-36.0) 11/27/21 09:35 RDW 15.4 % (12.1-15.1) H 11/27/21 09:35 Plt Count 160 10^3/cmm (130-400) 11/27/21 09:35 MPV 11.6 fL (7.4-10.4) H 11/27/21 09:35 Neut % (Auto) 76.0 % 11/27/21 09:35 Lymph % (Auto) 15.4 % 11/27/21 09:35 [place] % (Auto) 6.9 % 11/27/21 09:35 Eos % (Auto) 0.7 % 11/27/21 09:35 Baso % (Auto) 0.6 % 11/27/21 09:35 Neut # (Auto) 5.14 10^3/uL (1.8-7.7) 11/27/21 09:35 Lymph # (Auto) 1.0 10^3/uL (0.8-4.8) 11/27/21 09:35 [place] # (Auto) 0.5 10^3/uL (0.2-0.9) 11/27/21 09:35 Eos # (Auto) 0.1 10^3/uL (0.0-0.8) 11/27/21 09:35 Baso # (Auto) 0.0 10^3/uL (0.0-0.1) 11/27/21 09:35 Nucleated RBC % (auto) 0 % 11/27/21 09:35 Nucleated RBCs # 0.0 /100WBC 11/27/21 09:35 Sodium 136 mmol/L (136-145) 11/27/21 09:35 Potassium 3.4 mmol/L (3.5-5.1) L 11/27/21 09:35 Chloride 104 mmol/L (98-107) 11/27/21 09:35 Carbon Dioxide 17 mmol/L (22-29) L 11/27/21 09:35 Anion Gap 18.4 (5-19) 11/27/21 09:35 BUN 4 mg/dL (6-20) L 11/27/21 09:35 Creatinine 0.7 mg/dL (0.5-0.9) 11/27/21 09:35 GFR Calculation 89.7 mL/min (90-130) L 11/27/21 09:35 Glucose 139 mg/dL (65-115) H 11/27/21 09:35 Calculated Osmolality 281 mOsm/kg (285-295) L 11/27/21 09:35 Calcium 9.1 mg/dL (8.5-10.5) 11/27/21 09:35 Total Bilirubin 0.4 mg/dL (0.15-1.2) 11/27/21 09:35 AST 55 U/L (0-32) H 11/27/21 09:35 ALT 71 U/L (0-33) H 11/27/21 09:35 Alkaline Phosphatase 107 IU/L (35-105) H 11/27/21 09:35 Total Protein 6.4 g/dL (6.6-8.7) L 11/27/21 09:35 Albumin 4.2 g/dL (3.5-5.2) 11/27/21 09:35 Globulin 2.2 g/dL (1.3-4.6) 11/27/21 09:35 Lipase 112 U/L (13-60) H 11/27/21 09:35 HCG, Qual Negative (Negative) 11/27/21 12:46 Urine Color Yellow (Yellow) 11/27/21 12:46 Urine Appearance Clear (CLEAR) 11/27/21 12:46 Urine pH 5 (5-7) 11/27/21 12:46 Ur Specific [place] 1.025 (1.005-1.030) 11/27/21 12:46 Urine Protein Neg (Negative) 11/27/21 12:46 Urine Glucose (UA) Norm (Normal) 11/27/21 12:46 Urine Ketones 3+ (Negative) H 11/27/21 12:46 Urine Blood 2+ (Negative) H 11/27/21 12:46 Urine Nitrate Negative (Negative) 11/27/21 12:46 Urine Bilirubin Neg (Negative) 11/27/21 12:46 Urine Urobilinogen Neg mg/dL (Negative) 11/27/21 12:46 Ur Leukocyte Esterase Negative (Negative) 11/27/21 12:46 Urine RBC Rare /hpf (0-2) 11/27/21 12:46 Urine WBC Rare /hpf (0-5) 11/27/21 12:46 Ur Squamous Epith Cells 5-10 /hpf (0-5) H 11/27/21 12:46 Amorphous Sediment 1+ /hpf 11/27/21 12:46 Urine Bacteria Trace /hpf (NONE) 11/27/21 12:46 Urine Mucus 2+ /hpf 11/27/21 12:46 Urine Opiates Screen Positive ng/mL (Negative) H 11/27/21 12:46 Ur Barbiturates Screen Negative ng/mL (Negative) 11/27/21 12:46 Ur Phencyclidine Scrn Negative ng/mL (Negative) 11/27/21 12:46 Ur Amphetamines Screen Negative ng/mL (Negative) 11/27/21 12:46 U Benzodiazepines Scrn Negative ng/mL (Negative) 11/27/21 12:46 Urine Cocaine Screen Negative ng/mL (Negative) 11/27/21 12:46 U Marijuana (THC) Screen Positive ng/mL (Negative) H 11/27/21 12:46 EKG Data EKG 1: Other EKG comments: Sinus tachycardia, rate of 117, QTC of 397, no sign of acute ischemia or other acute abnormality. Discharge Plan Discharge Patient Disposition: Home Clinical Impression: Abdominal pain, Cyclic vomiting syndrome Condition: Stable Prescriptions: New Compazine 25 mg suppository 25 mg PA BID PRN (Reason: nausea and vomiting) Qty: 12 0RF No Action omeprazole 20 mg capsule,delayed release(DR/EC) 20 mg PO DAILY 0RF albuterol sulfate 2.5 mg /3 mL (0.083 %) solution for nebulization 2.5 mg INHALATION Q6H PRN (Reason: shortness of breath or wheezing) Qty: 180 3RF albuterol sulfate 90 mcg/actuation HFA aerosol inhaler 2 puff INHALATION QID PRN (Reason: Shortness Of Breath) Qty: 18 3RF gabapentin 800 mg tablet 800 mg PO Q6H 30 Days Qty: 120 1RF sertraline 100 mg tablet 200 mg PO DAILY Qty: 60 2RF Wellbutrin XL 300 mg tablet extended release 24 hr 300 mg PO QAM Qty: 30 2RF acetaminophen 500 mg capsule 500 mg PO Q4H PRN (Reason: Pain) 0RF chlorpheniramine maleate [Allergy (chlorpheniramine)] 4 mg tablet 4 mg PO DAILY PRN (Reason: Allergy Symptoms) 0RF melatonin 3 mg capsule 6 mg PO BEDTIME PRN (Reason: Insomnia) 0RF (DME) blood sugar diagnostic Strip See Rx Instructions .ROUTE .MEDSUPPLY Qty: 200 3RF Rx Instructions: As directed to test blood sugar 1-2 times a day (DME) blood-glucose meter [Blood Glucose Monitoring] Kit See Rx Instructions .ROUTE .MEDSUPPLY Qty: 1 0RF Rx Instructions: As directed to test 1-2 time a day (DME) lancets 33 gauge misc See Rx Instructions .ROUTE .MEDSUPPLY Qty: 200 3RF Rx Instructions: As directed to test blood sugar 1-2 times a day. cyclobenzaprine 10 mg tablet 20 mg PO BID PRN (Reason: muscle spasm) Qty: 120 1RF nystatin 100,000 unit/gram cream See Rx Instructions .ROUTE .COMPLEX Qty: 30 3RF Dose Instruction: APPLY CREAM TWICE A DAY Rx Instructions: APPLY CREAM TWICE A DAY PRN buspirone 15 mg tablet 15 mg PO BID PRN (Reason: anxiety) 30 Days Qty: 60 1RF metoprolol succinate 50 mg tablet extended release 24 hr 50 mg PO BID 0RF Eliquis 5 mg tablet 5 mg PO BID 0RF hydrocodone-acetaminophen 5-325 mg tablet 1 tab PO Q6H PRN (Reason: pain (scale score 7-10)) Qty: 10 0RF ondansetron 4 mg tablet,disintegrating 4 mg PO Q8H PRN (Reason: nausea and vomiting) Qty: 7 0RF cephalexin 500 mg capsule 500 mg PO BID 7 Days Qty: 14 0RF Discharge Orders: Discharge ED (Routine); Ordered 11/27/21 Ordered By: Irving Harkins Referrals: Chano Renee DO [Primary Care Provider] - 1-3 days Patient Instructions: Abdominal Pain (ED), Cyclic Vomiting Syndrome (ED), Opioid Safety Coding Level of Care Code ED Health And Wellness Coordinator for Chelsey Magana
--- NOTE | 2021-11-27 09:12 | ECG_ITS ---
[facility] Test Date: 2021-11-27 Pat Name: Carmen Hooper Department: Room: Gender: Female Patient Services Specialist: : 1975 Requested By: Irving Harkins Order Number: [id number] Valentine MD: Dilcia Kang M.D. Measurements Intervals Cecilia Rate: 117 P: 51 MD: 153 QRS: 63 QRSD: 88 T: 3 QT: 327 QTc: 458 Interpretive Statements SINUS TACHYCARDIA ST DEVIATION AND MODERATE T-WAVE ABNORMALITY, CONSIDER ANTEROLATERAL ISCHEMIA ST DEVIATION AND MODERATE T-WAVE ABNORMALITY, CONSIDER INFERIOR ISCHEMIA Compared to ECG 06/07/2020 20:52:34 T-wave abnormality now present Possible ischemia now present Sinus rhythm no longer present ST (T wave) deviation no longer present Electronically Signed On 11-27-2021 18:26:03 CDT by Dilcia Kang M.D. [email or web address] [email or web address].[email or web address]/store/OM/[id number]
[2021-11-27 09:42] LABS: Basophils % 0.6 %; Eosinophils # 0.1 10^3/uL (0.0-0.8); Eosinophils % 0.7 %; Hematocrit 35.5 % (37.0-47.0); Hemoglobin 10.9 g/dL (11.5-15.3); Lymphocytes % 15.4 %; Mean Corpuscular HGB Conc 30.7 g/dL (30.0-36.0); Mean Corpuscular Hemoglobin 25.9 pg (28.0-34.0); Mean Corpuscular Volume 84.3 fl (81-99); Mean Platelet Volume 11.6 fL (7.4-10.4); Monocytes # 0.5 10^3/uL (0.2-0.9); Monocytes % 6.9 %; Neutrophils # 5.14 10^3/uL (1.8-7.7); Nucleated Red Blood Cells % 0 %; Platelet Count 160 10^3/cmm (130-400); Red Blood Count 4.21 10^6/uL (4.1-5.3); Red Cell Distribution Width 15.4 % (12.1-15.1); White Blood Count 6.8 10^3/uL (4.0-10.0)
[2021-11-27 10:14] LABS: Alanine Aminotransferase 71 U/L (0-33); Albumin Level 4.2 g/dL (3.5-5.2); Alkaline Phosphatase 107 IU/L (35-105); Anion Gap 18.4 (5-19); Aspartate Amino Transferase 55 U/L (0-32); Blood Urea Nitrogen 4 mg/dL (6-20); Calcium 9.1 mg/dL (8.5-10.5); Carbon Dioxide 17 mmol/L (22-29); Chloride 104 mmol/L (98-107); Globulin 2.2 g/dL (1.3-4.6); Glomerular Filtration Rate 89.7 mL/min (90-130); Glucose 139 mg/dL (65-115); Lipase 112 U/L (13-60); Osmolality Calculated 281 mOsm/kg (285-295); Potassium 3.4 mmol/L (3.5-5.1); Sodium 136 mmol/L (136-145); Total Bilirubin 0.4 mg/dL (0.15-1.2); Total Protein 6.4 g/dL (6.6-8.7)
[2021-11-27] MEDS: sodium chloride 0.9% 1,000 ML 999 ML IV (10:24)
[2021-11-27] MEDS: diphenhydrAMINE 50 mg/mL SDV 1mL 25 MG IVP (10:25)
[2021-11-27] MEDS: haloperidol inj 5 mg/mL INJ 1 mL IVP (10:26)
--- NOTE | 2021-11-27 10:43 | US_ITS ---
WS: [id number] ULTRASOUND ABDOMEN LIMITED CLINICAL INFORMATION: abd pain, elevated LFT COMPARISON: CT November 25, 2021 FINDINGS: Technically difficult examination due to body habitus and patient motion. Liver Size: Enlarged Craniocaudal length: 17.9 cm. Echogenicity: Coarse and heterogeneous Surface nodularity: None. Mass (size and location): None. Bile ducts Intrahepatic ducts: Normal. Common bile duct diameter: 0.5 cm. Gallbladder Cholecystectomy Pancreas Not visualized Right kidney: Normal. Hydronephrosis: None. Size: 10.3 cm x 4.9 cm x 4.7 cm. Abdominal aorta and IVC Visualized portions are normal. Ascites: None. US/US abdomen limited [id number] IMPRESSION: 1. Hepatomegaly with diffuse fatty infiltration. 2. Gallbladder surgically absent. 3. No hydronephrosis in RIGHT kidney. 4. Normal common bile duct. 5. No ascites.
[2021-11-27] MEDS: HYDROcodone-acetaminophen 5-325 mg Tablet 1 TAB PO (11:27)
[2021-11-27] MEDS: dicyclomine 20 mg Tablet PO (11:27)
[2021-11-27 12:00] VITALS: BP 154/113; PULSE 119; O2SAT 100
[2021-11-27] MEDS: haloperidol inj 5 mg/mL INJ 1 mL 10 MG IVP (12:11)
[2021-11-27 13:18] LABS: HCG Qualitative Urine. Negative (Negative)
[2021-11-27 14:11] LABS: Protein Urine Neg (Negative); Specific Gravity, Urine 1.025 (1.005-1.030); Urine Appearance Clear (CLEAR); Urine Color Yellow (Yellow); pH Urine 5 (5-7)
[2021-11-27 14:12] LABS: Add Urine Culture? No; Amorphous Sediment Urine 1+ /hpf; Bacteria Urine TRACE /hpf; Bilirubin Urine Neg (Negative); Blood Urine 2+ (Negative); Glucose Urine UA Norm (Normal); Ketones Urine 3+ (Negative); Leukocyte Esterase Urine Negative (Negative); Mucus Urine 2+ /hpf; Nitrate Urine Negative (Negative); RBC Urine RARE /hpf (0-2); Urobilinogen Urine Neg (Negative); WBC Urine RARE /hpf (0-5)
[2021-11-27 14:13] LABS: Amphetamines Screen Urine Negative (Negative); Barbiturates Screen Urine Negative (Negative); Benzodiazepines Screen Urine Negative (Negative); Cocaine Screen Urine Negative (Negative); Opiate Screen Urine Positive (Negative); PCP Screen Urine Negative (Negative); THC Screen Urine Positive (Negative)
[2021-11-27 14:54] VITALS: BP 171/143; PULSE 125; RESP 16; O2SAT 96
== END 2021-11-27 14:56 | disposition home or self-care (01) ==
PROVIDERS: Emergency Provider Emergency Medicine; PCP Family Medicine
DX: R10.32 Left lower quadrant pain (principal); R11.15 Cyclical vomiting syndrome unrelated to migraine
CPT/HCPCS: 76705; 80053; 80306; 81001; 81025; 83690; 85025; 93005; 96361; 96374; 96375; 96376; 99284; J1200; J1630; J7030

== ENCOUNTER → 2021-12-04 10:23 | Outpatient (BNVA) | payer MEDICARE, MEDICAID, SELFPAY | PROVIDERS: PCP Family Medicine; Referring Provider Nurse Practitioner Family; Visit Provider Obstetrics & Gynecology | DX: Z12.4 Encounter for screening for malignant neoplasm of cervix (principal); N93.9 Abnormal uterine and vaginal bleeding, unspecified | CPT/HCPCS: 84146; 84443; 87624 ==

== ENCOUNTER → 2021-12-19 10:51 | Outpatient (BNVA) | payer MEDICARE, MEDICAID, SELFPAY | PROVIDERS: PCP Family Medicine; Visit Provider Internal Medicine Pulmonary Disease | DX: G47.30 Sleep apnea, unspecified (principal); R06.00 Dyspnea, unspecified; R49.0 Dysphonia; I26.99 Other pulmonary embolism without acute cor pulmonale; R94.2 Abnormal results of pulmonary function studies | CPT/HCPCS: 99214 ==

== ENCOUNTER → 2022-01-08 13:37 | Outpatient (BNVA) | payer MEDICARE, MEDICAID, SELFPAY | PROVIDERS: PCP Family Medicine; Visit Provider Obstetrics & Gynecology | DX: M54.2 Cervicalgia (principal); N93.9 Abnormal uterine and vaginal bleeding, unspecified | CPT/HCPCS: 81025; 88305 ==

== ENCOUNTER 2022-01-14 11:01 | Outpatient (CLI) | payer MEDICARE, MEDICAID, SELFPAY ==
--- NOTE | 2022-01-14 11:11 | MM_ITS ---
WS: [id number] BILATERAL SCREENING DIGITAL BREAST TOMOSYNTHESIS MAMMOGRAM WITH CAD HISTORY: Z12.39 - Encounter for other screening for malignant neoplasm. COMPARISON: None available. Bilateral CC and MLO views with tomosynthesis and synthetic mammography submitted. Computer aided det ection analyzed. Breast composition: There are scattered areas of fibroglandular density. No suspicious masses, microc alcifications or architectural distortion. Focal asymmetry in the posterior lateral RIGHT breast. No underlying abnormality on the tomosynthesis images. MM/[place] [id number] IMPRESSION: BI-RADS: 2-Benign FOLLOW UP: 1 Year Follow-up
== END 2022-01-14 11:02 | disposition home or self-care (01) ==
PROVIDERS: PCP Family Medicine; Visit Provider Obstetrics & Gynecology
DX: Z12.31 Encounter for screening mammogram for malignant neoplasm of breast (principal)
CPT/HCPCS: 77063; 77067

== ENCOUNTER 2022-01-17 14:39 | Outpatient (CLI) | payer MEDICARE, MEDICAID, SELFPAY ==
--- NOTE | 2022-01-17 15:15 | MR_ITS ---
WS: [id number] MRI CERVICAL SPINE NONCONTRAST HISTORY: M47.812 - Spondylosis without myelopathy or radiculopathy... COMPARISON: None available. Technique: Multiplanar, multisequence noncontrast imaging of the cervical spine. Mild straightening of the normal cervical lordosis. Very mild RIGHT curvature of the cervical spine. Signal within the cervical cord is normal. Visualized posterior fossa is unremarkable. Craniocervical junction, C1 and C2 relationship, odontoid process and soft tissues are normal. C2-C3: Normal. C3-C4: Normal. C4-C5: Normal. C5-C6: Normal. C6-C7: Normal. C7-T1: Normal. Paraspinal soft tissue are normal. MR/MR cervical spin wo con* [id number] IMPRESSION: 1. No disc protrusions or stenosis. 2. Mild straightening and mild RIGHT curvature cervical spine. No fractures.
== END 2022-01-17 14:40 | disposition home or self-care (01) ==
LOC: RAD 14:41
PROVIDERS: PCP Family Medicine; Visit Provider Physician Assistant
DX: M47.812 Spondylosis without myelopathy or radiculopathy, cervical region (principal); R20.2 Paresthesia of skin
CPT/HCPCS: 72141

== ENCOUNTER → 2022-02-05 08:17 | Outpatient (BNVA) | payer MEDICARE, MEDICAID, SELFPAY | PROVIDERS: PCP Family Medicine; Referring Provider Physician Assistant; Visit Provider Specialist | DX: F41.1 Generalized anxiety disorder (principal); F33.1 Major depressive disorder, recurrent, moderate; M47.812 Spondylosis without myelopathy or radiculopathy, cervical region; R20.2 Paresthesia of skin | CPT/HCPCS: 95910; 95912; 99214 ==

== ENCOUNTER → 2022-02-27 10:48 | Outpatient (BNVA) | payer MEDICARE, MEDICAID, SELFPAY | PROVIDERS: PCP Family Medicine; Referring Provider Physician Assistant; Visit Provider Specialist | DX: R20.2 Paresthesia of skin (principal); M54.2 Cervicalgia; M54.9 Dorsalgia, unspecified; G89.29 Other chronic pain | CPT/HCPCS: 95861 ==

== ENCOUNTER → 2022-04-04 11:33 | Outpatient (BNVA) | payer MEDICARE, MEDICAID, SELFPAY | PROVIDERS: PCP Family Medicine; Visit Provider Nurse Practitioner Family | DX: R50.9 Fever, unspecified (principal) | CPT/HCPCS: 87426 ==

== ENCOUNTER 2022-04-15 17:12 | Emergency (ER) | payer MEDICARE, MEDICAID, SELFPAY ==
[2022-04-15 17:24] VITALS: BP 150/96; PULSE 88; RESP 18; TEMP 36.8; O2SAT 98; BMI 47.8
--- NOTE | 2022-04-15 17:37 | ED_ITS ---
HPI - Dental/Oral General: Chief complaint: Dental/Oral Stated complaint: tooth pain Time Seen by Provider: 04/15/22 17:28 Source: patient Mode of arrival: ambulatory Limitations: no limitations History of Present Illness: Patient is a nice 46-year-old female who presents to ED today with a complaint of left upper dental pain, facial swelling, and concern for abscess. Patient states she has been having pain over the past 2 to 3 days. She was seen by PCP yesterday and placed on Keflex. Patient states she has now noticed the tooth draining and noticing a foul taste in her mouth as well as left-sided facial swelling. She has not been running fevers. She is eating, drinking, swallowing normally. Onset (ago): day(s) Duration: constant Severity: moderate Relieving factors: nothing Exacerbating factors: nothing Associated symptoms: Reports other (facial swelling); Denies fever(s) or odynophagia Treatment prior to arrival: oral analgesic Review of Systems Const: Denies: fever(s), chills, body aches, fatigue or malaise ENMT: Reports: dental pain and other (L facial swelling); Denies: throat pain, odynophagia, hoarseness, swelling of lips/tongue, oral sores, nasal discharge, nasal congestion or post nasal drip Card: Denies: chest pain Resp: Denies: dyspnea GI: Denies: nausea or vomiting Musc: Denies: neck pain Neuro: Denies: headache(s) PFS ED PFSH: Medical History Asthma Diagnosed in 2019 after COVID. 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 Chiari malformation Chronic migraine Reports migraines with aura's-follows up with a neurologist Dr. Haines Chronic neck and back pain Juvencio-Danlos syndrome Type III per patient---causes chronic neck pain and she sees pain management. Major depressive disorder, recurrent, moderate Anxiety and depression--- since age of 12. Has been on medication and sees generated [facility] No pertinent past medical history Denies diabetes, asthma, hypertension, seizures, DVT PCP:Dr. Akers Pulmonary embolism x 2 2015---had a pulmonary embolism during usage of NuvaRing and was on blood thinners for 6 months. May 2020--had 2 PEs when she had COVID ---> Has been on Eliquis since 2019 managed by PMD. Tachycardia States is on medication to control heart rate managed by PMD. Does not have a taping foreman. Surgical History History of foot surgery December 2020--surgically repaired no fracture unburied fluid. History of throat surgery Vocal cord 12/28/20 [employer]--Dilation and removal of vocal cord S/P carpal tunnel release 2009--right-sided S/P section 2007 S/P cholecystectomy 02/09/2019---laparoscopic procedure Status post hysterectomy 03/04/2022---robot-assisted laparoscopic total hysterectomy and bilateral oriana pingectomy by Dr. Natividad Bobo in [facility]. Pathology showed endometriosis but was otherwise benign. ---> Operative reports have been scanned Status post surgery X 2 2020--Vocal cord reconstructive surgery performed in [facility] in [employer] after damage to vocal cords with prolonged intubation. [place] teeth extracted Family History Father Hypertension Grandmother Diabetes maternal and paternal Denies family history of Colon cancer Ovarian cancer Heart disease Hyperlipidemia Breast cancer Uterine cancer Thyroid condition Stroke Social History Smoking and tobacco status: never smoked Female Reproductive History: Date of last menstrual period: 01/21/21 Physical Exam Const: COMMON NORMALS: no acute distress, no limitations and alert GENERAL APPEARANCE: cooperative HENMT: COMMON NORMALS: normocephalic, atraumatic and Normal external nose present HEAD & SCALP: normal to inspection, normocephalic and atraumatic FACE & SINUS: edema and other (L facial swelling); no crepitus, no erythema and no fluctuance NOSE: Normal external nose present MOUTH: Normal oral and palatal mucosa present, lip normal, tongue normal and other (floor of mouth is soft/non-raised ) TEETH & GINGIVA IMAGES: 1. abscess formation with foul smelling purulent drainage easily expressed THROAT: posterior oropharynx normal, tonsils normal and uvula midline Eye: GENERAL EYE: appearance normal, both eyes and all related structures Neck/C-Spine: COMMON NORMALS: full ROM and no lymphadenopathy GENERAL: Yes normal visual inspection, No anterior neck swelling and No submandibular swelling Neuro: SENSORIUM/ORIENTATION: Yes alert Course Vital Signs: Vital signs: Vital Signs Temperature 98.3 F 04/15/22 19:14 Pulse Rate 90 04/15/22 19:14 Respiratory Rate 18 04/15/22 19:14 Blood Pressure 164/84 04/15/22 19:14 Pulse Oximetry 94 04/15/22 19:14 Oxygen Delivery Me thod 04/15/22 18:04 MDM - Dental/Oral Medical Decision Making Abscess is actively draining. She states she has Peridex at home and I recommend she use that 3x daily. She was given IM Clindamycin here and will switch her oral abx to this. Will provide pain relief. She states she has a dental appointment tomorrow-encouraged her to keep this. Return to ED precautions given. Discharge Plan Discharge Patient Disposition: Home Clinical Impression: Dental abscess Condition: Stable Prescriptions: New clindamycin HCl 300 mg capsule 300 mg PO Q6H 7 Days Qty: 28 0RF hydrocodone-acetaminophen 5-325 mg tablet 1 tab PO Q6H PRN (Reason: pain) Qty: 14 0RF No Action omeprazole 20 mg capsule,delayed release(DR/EC) 20 mg PO DAILY albuterol sulfate 2.5 mg /3 mL (0.083 %) solution for nebulization 2.5 mg INHALATION Q6H PRN (Reason: shortness of breath or wheezing) Qty: 180 3RF albuterol sulfate 90 mcg/actuation HFA aerosol inhaler 2 puff INHALATION QID PRN (Reason: Shortness Of Breath) Qty: 18 3RF gabapentin 800 mg tablet 800 mg PO Q6H 30 Days Qty: 120 1RF acetaminophen 500 mg capsule 500 mg PO Q4H PRN (Reason: Pain) chlorpheniramine maleate [Allergy (chlorpheniramine)] 4 mg tablet 4 mg PO DAILY PRN (Reason: Allergy Symptoms) diphenhydramine HCl [Benadryl] 25 mg capsule 25 mg PO TID PRN indomethacin 50 mg capsule 50 mg PO BID PRN Rx Instructions: administer with food or milk buspirone 15 mg tablet 30 mg PO DAILY fexofenadine [Deepa Allergy] 60 mg tablet 60 mg PO BID multivitamin Tablet 1 tab PO DAILY cyclobenzaprine 10 mg tablet 20 mg PO BID rizatriptan [Maxalt] 10 mg tablet 10 mg PO Q2H PRN Rx Instructions: do not exceed 3 doses per 24 hrs bupropion HCl [Wellbutrin XL] 300 mg tablet extended release 24 hr 300 mg PO QAM Qty: 30 2RF (DME) blood sugar diagnostic Strip See Rx Instructions .ROUTE .MEDSUPPLY Qty: 200 3RF Rx Instructions: As directed to test blood sugar 1-2 times a day (DME) blood-glucose meter [Blood Glucose Monitoring] Kit See Rx Instructions .ROUTE .MEDSUPPLY Qty: 1 0RF Rx Instructions: As directed to test 1-2 time a day (DME) lancets 33 gauge misc See Rx Instructions .ROUTE .MEDSUPPLY Qty: 200 3RF Rx Instructions: As directed to test blood sugar 1-2 times a day. nystatin 100,000 unit/gram cream See Rx Instructions .ROUTE .COMPLEX Qty: 30 3RF Dose Instruction: APPLY CREAM TWICE A DAY Rx Instructions: APPLY CREAM TWICE A DAY PRN sertraline 100 mg tablet 200 mg PO DAILY Qty: 60 2RF Eliquis 5 mg tablet 5 mg PO BID Qty: 60 5RF Compazine 25 mg suppository 25 mg NV BID PRN (Reason: nausea and vomiting) Qty: 12 0RF metoprolol succinate 50 mg tablet extended release 24 hr 50 mg PO BID ondansetron 4 mg tablet,disintegrating 4 mg PO Q8H PRN (Reason: nausea and vomiting) Qty: 7 0RF Discharge Orders: Discharge ED (Routine); Ordered 04/15/22 Ordered By: Agnieszka Garcia Referrals: Florian Akers MD [Primary Care Provider] - Patient Instructions: Dental Abscess (ED), Opioid Safety Coding Level of Care Code ED Director [facility]
[2022-04-15 18:04] VITALS: BP 164/84; PULSE 90; RESP 18; TEMP 36.8; O2SAT 94
[2022-04-15] MEDS: clindamycin 150 mg/mL SDV 6 mL 600 MG IM (18:14)
[2022-04-15] MEDS: HYDROcodone-acetaminophen 5-325 mg Tablet 2 TAB PO (18:14)
[2022-04-15 19:14] VITALS: BP 164/84; PULSE 90; RESP 18; TEMP 36.8; O2SAT 94
== END 2022-04-15 18:41 | disposition home or self-care (01) ==
PROVIDERS: Emergency Provider Physician Assistant; PCP Family Medicine
DX: K04.7 Periapical abscess without sinus (principal); Z79.01 Long term (current) use of anticoagulants
CPT/HCPCS: 96372; 99284; J3490

== ENCOUNTER → 2022-08-07 09:50 | Outpatient (BNVA) | payer MEDICARE, MEDICAID, SELFPAY | PROVIDERS: PCP Family Medicine; Visit Provider Nurse Practitioner Family | DX: R50.9 Fever, unspecified (principal); R05.9 Cough, unspecified | CPT/HCPCS: 87400; 87426 ==

== ENCOUNTER 2022-09-21 11:52 | Emergency (ER) | payer MEDICARE, MEDICAID, SELFPAY ==
[2022-09-21 12:00] VITALS: BP 123/87; PULSE 75; RESP 18; TEMP 37.1; O2SAT 98
--- NOTE | 2022-09-21 12:22 | ED_ITS ---
HPI - SOB/Dyspnea General: Chief Complaint: Shortness of Breath/Dyspnea Stated Complaint: sore throat, Cough Time Seen by Provider: 09/21/22 12:20 History of Present Illness: HPI Narrative: Ms. Hooper is a 47-year-old lady with complex past medical history including pulmonary embolism is on anticoagulation, history of severe COVID-pneumonia requiring intubation with residual underlying lung disease presenting to the emergency department due to generalized illness. She reports onset of symptoms 3 days ago and subacute associated with cough, body aches, and shortness of breath starting yesterday. Intensity symptoms is moderate and worse with exertion and coughing. Course has worsened. No other specific changes in health, exacerbating, or alleviating factors identified. Onset (ago): day(s) Context: recent illness Timing: progressively worsening Severity: moderate Exacerbating factors: coughing Relieving factors: nothing Known history of: other Associated symptoms: Reports chest congestion, cough, fever(s) and myalgias Review of Systems General: Reports: 10 or more systems reviewed and unremarkable except in HPI and below Const: Reports: fever(s) Resp: Reports: chest congestion PFSH ED PFSH: Medical History Asthma Diagnosed in 2019 after COVID. 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 Chiari malformation Chronic migraine Reports migraines with aura's-follows up with a neurologist Dr. Haines Chronic neck and back pain Juvencio-Danlos syndrome Type III per patient---causes chronic neck pain and she sees pain management. Major depressive disorder, recurrent, moderate Anxiety and depression--- since age of 12. Has been on medication and sees generated [facility] No pertinent past medical history Denies diabetes, asthma, hypertension, seizures, DVT PCP:Dr. Akers Pulmonary embolism x 2 2015---had a pulmonary embolism during usage of NuvaRing and was on blood thinners for 6 months. May 2020--had 2 PEs when she had COVID ---> Has been on Eliquis since 2019 managed by PMD. Tachycardia States is on medication to control heart rate managed by PMD. Does not have a hydropress operator. Surgical History History of foot surgery December 2020--surgically repaired no fracture unburied fluid. History of throat surgery Vocal cord 12/28/20 [place]--Dilation and removal of vocal cord S/P carpal tunnel release 2009--right-sided S/P section 2007 S/P cholecystectomy 02/09/2019---laparoscopic procedure Status post hysterectomy 03/04/2022---robot-assisted laparoscopic total hysterectomy and bilateral salpingectomy by Dr. Natividad Bobo in [facility]. Pathology showed endometriosis but was otherwise benign. ---> Operative reports have been scanned Status post surgery X 2 2020--Vocal cord reconstructive surgery performed in [facility] in [place] after damage to vocal cords with prolonged intubation. [place] teeth extracted Family History Father Hypertension Grandmother Diabetes maternal and paternal Denies family history of Colon cancer Ovarian cancer Heart disease Hyperlipidemia Breast cancer Uterine cancer Thyroid condition Stroke Social History Smoking and tobacco status: never smoked Female Reproductive History: Date of last menstrual period: 01/21/21 Physical Exam Const: COMMON NORMALS: alert GENERAL APPEARANCE: cooperative and well developed HENMT: COMMON NORMALS: normocephalic and atraumatic HEAD & SCALP: normocephalic and atraumatic Eye: COMMON NORMALS: conjunctivae normal CONJUNCTIVA: Yes conjunctivae normal SCLERA: sclerae normal Neck/C-Spine: COMMON NORMALS: supple GENERAL: Yes trachea midline Resp: COMMON NORMALS: normal respiratory effort EFFORT & INSPECTION: Yes able to speak in complete sentences AUSCULTATION: diminished lung sounds Cardio: COMMON NORMALS: regular rate and regular rhythm RATE: regular rate RHYTHM: regular rhythm GI: COMMON NORMALS: Soft to palpation PALPATION: Yes Soft to palpation and No Tenderness to palpation present (GI) Extremity: NARRATIVE EXTREMITY EXAM: Contusion to right knee, old GENERAL: Yes normal exam except as noted and Yes edema Neuro: COMMON NORMALS: moves all extremities SENSORIUM/ORIENTATION: Yes alert and No Orientation impaired Psych: COMMON NORMALS: mental status grossly normal and Normal thought process present THOUGHT PROCESS: Normal thought process present Course Vital Signs: Vital signs: Vital Signs Temperature 98.7 F 09/21/22 12:00 Pulse Rate 99 09/21/22 13:13 Respiratory Rate 18 09/21/22 13:02 Blood Pressure 123/87 09/21/22 12:00 Pulse Oximetry 97 09/21/22 13:02 Oxygen Delivery Me thod 09/21/22 13:02 MDM - SOB/Dyspnea Medical Decision Making 47-year-old lady with complex underlying lung disease presenting due to cough and shortness of breath as well as generalized malaise. Patient is nontoxic on exam, no evidence of acute impending airway failure. EKG shows sinus rhythm with normal axis, normal intervals, nonspecific ST segment abnormalities with no STEMI. Rapid viral testing is negative. Chest x-ray with no lobar consolidation or pneumothorax. Patient feels improved with RT treatment. Most likely cause of patient symptoms is pneumonia with exacerbation of COPD. The results of ED evaluation were discussed with the patient including prescriptions and/or symptomatic cares (if applicable) including appropriate and responsible use, followup plan, and return precautions. The patient verbalized understanding and felt safe for discharge. Medical Records I reviewed the patient's medical records. Lab Data I reviewed the patient's lab results. Labs/Radiology: Radiology Impressions Chest X-Ray 09/21/22 12:30 IMPRESSION: No acute findings. Laboratory Results Influenza Type A Ag negative (Negative) 09/21/22 12:35 Influenza Type B Ag negative (Negative) 09/21/22 12:35 SARS-CoV-2 Ag (Rapid) negative (Negative) 09/21/22 12:35 Discharge Plan Discharge Patient Disposition: Home Clinical Impression: Acute exacerbation of chronic obstructive airways disease, Pneumonia Condition: Stable Prescriptions: New albuterol sulfate 90 mcg/actuation HFA aerosol inhaler 2 inh inhalation Q4H PRN (Reason: shortness of breath or wheezing) Qty: 8.5 0RF amoxicillin-pot clavulanate 875-125 mg tablet 1 tab PO BID Qty: 20 0RF No Action omeprazole 20 mg capsule,delayed release(DR/EC) 20 mg PO DAILY albuterol sulfate 2.5 mg /3 mL (0.083 %) solution for nebulization 2.5 mg INHALATION Q6H PRN (Reason: shortness of breath or wheezing) Qty: 180 3RF albuterol sulfate 90 mcg/actuation HFA aerosol inhaler 2 puff INHALATION QID PRN (Reason: Shortness Of Breath) Qty: 18 3RF gabapentin 800 mg tablet 800 mg PO Q6H 30 Days Qty: 120 1RF acetaminophen 500 mg capsule 500 mg PO Q4H PRN (Reason: Pain) chlorpheniramine maleate [Allergy (chlorpheniramine)] 4 mg tablet 4 mg PO DAILY PRN (Reason: Allergy Symptoms) diphenhydramine HCl [Benadryl] 25 mg capsule 25 mg PO TID PRN indomethacin 50 mg capsule 50 mg PO BID PRN Rx Instructions: administer with food or milk buspirone 15 mg tablet 30 mg PO DAILY fexofenadine [Deepa Allergy] 60 mg tablet 60 mg PO BID Paxlovid (EUA) 300 mg (150 mg x 2)-100 mg tablets,dose pack See Rx Instructions PO .COMPLEX Qty: 30 0RF Rx Instructions: take TWO 150 mg tablets of nirmatrelvir with ONE 100 mg tablet of ritonavir twice daily for 5 days PO multivitamin Tablet 1 tab PO DAILY cyclobenzaprine 10 mg tablet 20 mg PO BID rizatriptan [Maxalt] 10 mg tablet 10 mg PO Q2H PRN Rx Instructions: do not exceed 3 doses per 24 hrs bupropion HCl [Wellbutrin XL] 300 mg tablet extended release 24 hr 300 mg PO QAM Qty: 30 2RF (DME) blood sugar diagnostic Strip See Rx Instructions .ROUTE .MEDSUPPLY Qty: 200 3RF Rx Instructions: As directed to test blood sugar 1-2 times a day (DME) blood-glucose meter [Blood Glucose Monitoring] Kit See Rx Instructions .ROUTE .MEDSUPPLY Qty: 1 0RF Rx Instructions: As directed to test 1-2 time a day (DME) lancets 33 gauge misc See Rx Instructions .ROUTE .MEDSUPPLY Qty: 200 3RF Rx Instructions: As directed to test blood sugar 1-2 times a day. nystatin 100,000 unit/gram cream See Rx Instructions .ROUTE .COMPLEX Qty: 30 3RF Dose Instruction: APPLY CREAM TWICE A DAY Rx Instructions: APPLY CREAM TWICE A DAY PRN sertraline 100 mg tablet 200 mg PO DAILY Qty: 60 2RF Eliquis 5 mg tablet 5 mg PO BID Qty: 60 2RF Rx Instructions: NEEDS [place]ER[place] PRIOR TO FURTHER REFILL. Compazine 25 mg suppository 25 mg [place] BID PRN (Reason: nausea and vomiting) Qty: 12 0RF hydrocodone-acetaminophen 5-325 mg tablet 1 tab PO Q6H PRN (Reason: pain) Qty: 14 0RF metoprolol succinate 50 mg tablet extended release 24 hr 50 mg PO BID ondansetron 4 mg tablet,disintegrating 4 mg PO Q8H PRN (Reason: nausea and vomiting) Qty: 7 0RF Discharge Orders: Discharge ED (Routine); Ordered 09/21/22 Ordered By: Valdemar Smart Referrals: Florian Akers MD [Primary Care Provider] - Discharge Diet: Usual diet Discharge Activity: Increase activity as tolerated Patient Instructions: Pneumonia (ED) Activity Restrictions/Additional Instructions: Thank you for visiting the emergency department. You were seen and evaluated for generalized illness and respiratory symptoms. The most likely cause of your symptoms is pneumonia and exacerbation of underlying lung disease. I will prescribe steroids and antibiotics. Please also use your albuterol metered-dose inhaler 2 puffs every 4 hours for 24 hours followed by 2 puffs every 6 hours for 24 hours followed by 2 puffs every 8 hours for 24 hours and then return to the normal schedule. Please follow-up with your primary care provider. Return to the emergency department for worsening symptoms or anything else that you are concerned about a feel needs emergency department evaluation. Coding Level of Care Code ED Project Manager [employer] for [facility] Exam Comprehensive
--- NOTE | 2022-09-21 12:30 | XRR_ITS ---
PROCEDURE INFORMATION: Exam: XR Chest Exam date and time: 09/21/2022 1:10 PM Age: 47 years old Clinical indication: Cough TECHNIQUE: Imaging protocol: Radiologic exam of the chest. Views: 1 view. COMPARISON: CR XR chest 1V portable [id number] 10/28/2020 9:49 AM FINDINGS: Lungs: Unremarkable. No consolidation. Pleural spaces: Unremarkable. No pleural effusion. No pneumothorax. Heart/Mediastinum: Unremarkable. No cardiomegaly. Bones/joints: Unremarkable. XR/XR chest 1V portable [id number] IMPRESSION: No acute findings.
--- NOTE | 2022-09-21 12:30 | ECG_ITS ---
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 Measurements Intervals Ray Rate: 69 P: 37 KS: 158 QRS: 52 QRSD: 94 T: 42 QT: 389 QTc: 418 Interpretive Statements SINUS RHYTHM ST DEVIATION AND MODERATE T-WAVE ABNORMALITY, CONSIDER ANTERIOR ISCHEMIA [-0.1+ mV T-WAVE IN V3/V4] Compared to ECG 11/27/2021 09:33:24 Sinus tachycardia no longer present T-wave abnormality still present Possible ischemia still present Electronically Signed On 09-21-2022 21:43:43 CONSTRUCTION OR LEAK GANG LABORER by Delta Caldera M.D. [email or web address] Productsmer[email or web address].[email or web address]/[id number]
--- NOTE | 2022-09-21 12:31 | PC.NURSE ---
pt reports productive cough, green mucus, congestion, and chills for last 3 days. denies fevers. lung sounds clear bilat. speech clear. speaking in complete sentences without difficulty. speaking in complete sentences without difficulty.
[2022-09-21] MEDS: ipratropium 0.5 mg/2.5 mL Neb INHALATION (12:59)
[2022-09-21] MEDS: albuterol 2.5 mg/3 mL Neb INHALATION (12:59)
[2022-09-21 13:02] VITALS: PULSE 91; RESP 18; O2SAT 97
[2022-09-21 13:13] VITALS: PULSE 99
[2022-09-21 13:36] LABS: Influenza A by IFA negative (Negative); Influenza B by IFA negative (Negative)
[2022-09-21 13:37] LABS: SARS Covid-2 Antigen negative (Negative)
== END 2022-09-21 14:00 | disposition home or self-care (01) ==
PROVIDERS: Emergency Medicine; Emergency Provider Emergency Medicine; PCP Family Medicine
DX: J44.0 Chronic obstructive pulmonary disease with (acute) lower respiratory infection (principal); J18.9 Pneumonia, unspecified organism; J44.1 Chronic obstructive pulmonary disease with (acute) exacerbation; Z20.822 Contact with and (suspected) exposure to COVID-19
CPT/HCPCS: 71045; 87426; 87804; 93005; 94640; 99284; J7613; J7644

== ENCOUNTER → 2022-11-25 15:32 | Outpatient (BNVA) | payer MEDICARE, MEDICAID, SELFPAY | PROVIDERS: PCP Family Medicine; Visit Provider Internal Medicine Pulmonary Disease | DX: J45.909 Unspecified asthma, uncomplicated (principal); G47.30 Sleep apnea, unspecified; R49.0 Dysphonia; Z86.16 Personal history of COVID-19; Z86.711 Personal history of pulmonary embolism; Z79.01 Long term (current) use of anticoagulants; E66.01 Morbid (severe) obesity due to excess calories; Z68.42 Body mass index [BMI] 45.0-49.9, adult | CPT/HCPCS: 99214 ==

== ENCOUNTER → 2022-12-10 07:53 | Outpatient (BNVA) | payer MEDICARE, MEDICAID, SELFPAY | PROVIDERS: PCP Family Medicine; Visit Provider Dermatology | DX: C43.61 Malignant melanoma of right upper limb, including shoulder (principal) | CPT/HCPCS: 11604; 12032 ==

== ENCOUNTER 2023-03-20 12:20 | Emergency (ER) | payer MEDICARE, MEDICAID, SELFPAY ==
[2023-03-20 12:25] VITALS: BP 146/82; PULSE 82; RESP 18; TEMP 36.8; O2SAT 95; BMI 47.8
--- NOTE | 2023-03-20 12:43 | CT_ITS ---
WS: [id number] CTA OF THE CHEST WITH PULMONARY EMBOLISM PROTOCOL TECHNIQUE: High-resolution contrast enhanced CTA of the chest with coronal and sagittal reformatted i mages with pulmonary embolism protocol. MIP images are also reviewed. CLINICAL INFORMATION: chest pain, dyspnea, hx of pe COMPARISON: 2020 DLP: 491.[address] scans at [facility] use at least one of these dose optimization techniques: automated e xposure control; mA and/or kV adjustment per patient size (includes targeted exams where dose is matc hed to clinical indication); or iterative reconstruction. FINDINGS: Proximal main pulmonary arteries are normal. Normal segmental and subsegmental pulmonary arteries. No evidence of pulmonary embolus. Normal caliber thoracic aorta. Enlarged LEFT ventricle is similar to previous. No mediastinal or oliver r lymphadenopathy. No axillary lymphadenopathy. Hepatomegaly. Splenomegaly. Cholecystectomy. Tiny esophageal hiatal hernia. Adrenal glands appear nor mal. Mild thoracic kyphosis. Patchy groundglass infiltrates in the LEFT lower lobe suspicious for pne umonitis. Additional hazy groundglass infiltrates in RIGHT upper lobe also likely infectious or infla mmatory. No focal consolidation or pleural fluid. Additional slight hazy groundglass infiltrates in t he RIGHT lower lobe laterally. CT/CT angio chest PE protcl [id number] IMPRESSION: 1. Proximal main pulmonary arteries are normal. No evidence of pulmonary embol us. 2. Patchy infiltrates in the LEFT lower lobe suspicious for pneumonitis. Addit ional hazy groundglass infiltrates in RIGHT upper lobe also likely infectious o r inflammatory. Recommend correlation for Covid 19 pneumonia. 3. No focal consolidation or pleural fluid. 4. No other acute findings.
--- NOTE | 2023-03-20 12:44 | ECG_ITS ---
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 Measurements Intervals [place] Rate: 71 P: 14 SD: 161 QRS: 25 QRSD: 88 T: 29 QT: 392 QTc: 426 Interpretive Statements SINUS RHYTHM LOW QRS VOLTAGE IN PRECORDIAL LEADS [QRS DEFLECTION < 1.0 mV IN CHEST LEADS] ST DEVIATION AND MODERATE T-WAVE ABNORMALITY, CONSIDER ANTERIOR ISCHEMIA [-0.1+ mV T-WAVE IN V3/V4] Compared to ECG 09/21/2022 12:52:44 Low QRS voltage now present T-wave abnormality still present Possible ischemia still present Electronically Signed On 03-20-2023 18:38:17 CDT by Miguel Angel De La Cruz M.D. [id number]
[2023-03-20 13:02] LABS: Basophils # 0.1 10^3/uL (0.0-0.1); Basophils % 1.2 %; Eosinophils # 0.2 10^3/uL (0.0-0.8); Eosinophils % 2.2 %; Hematocrit 42.1 % (37.0-47.0); Hemoglobin 13.7 g/dL (11.5-15.3); Lymphocytes # 2.4 10^3/uL (0.8-4.8); Lymphocytes % 35.1 %; Mean Corpuscular HGB Conc 32.5 g/dL (30.0-36.0); Mean Corpuscular Hemoglobin 29.8 pg (28.0-34.0); Mean Corpuscular Volume 91.5 fl (81-99); Mean Platelet Volume 10.6 fL (7.4-10.4); Monocytes # 0.4 10^3/uL (0.2-0.9); Monocytes % 5.7 %; Neutrophils % 55.2 %; Nucleated Red Blood Cells % 0 %; Platelet Count 181 10^3/cmm (130-400); Red Cell Distribution Width 13.2 % (12.1-15.1); White Blood Count 6.9 10^3/uL (4.0-10.0)
[2023-03-20] MEDS: iohexol 350 mg/mL 500 mL Btl (per mL) IV (13:26)
[2023-03-20 13:31] LABS: Troponin(5th) Baseline 6 ng/L (0-10)
--- NOTE | 2023-03-20 13:58 | ED_ITS ---
HPI - SOB/Dyspnea General: Chief Complaint: Shortness of Breath/Dyspnea Stated Complaint: SOB, hurts to breath Time Seen by Provider: 03/20/23 12:43 History of Present Illness: HPI Narrative: Presents ER with complaints of shortness of breath and coughing for a week. Patient does have a history of PE x2 in the past. Says she has chest pressure and feels like someone is sitting on her chest. Patient thought this was just a chest cold because her whole family had had a chest cold. But patient said that she is just not getting any better. This all started about a week ago and patient is been going downhill since then. Patient is currently on Eliquis and does breathing treatments as needed for shortness of breath. Review of Systems General: Reports: 10 or more systems reviewed and unremarkable except in HPI and below PFS ED PFSH: Medical History Asthma Diagnosed in 2019 after COVID. 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 Chiari malformation Chronic migraine Reports migraines with aura's-follows up with a neurologist Dr. Haines Chronic neck and back pain Juvencio-Danlos syndrome Type III per patient---causes chronic neck pain and she sees pain management. Major depressive disorder, recurrent, moderate Anxiety and depression--- since age of 12. Has been on medication and sees [facility] No pertinent past medical history Denies diabetes, asthma, hypertension, seizures, DVT PCP:Dr. Akers Pulmonary embolism x 2 2015---had a pulmonary embolism during usage of NuvaRing and was on blood thinners for 6 months. May 2020--had 2 PEs when she had COVID ---> Has been on Eliquis since 2019 managed by PMD. Tachycardia States is on medication to control heart rate managed by PMD. 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 Surgical History History of foot surgery December 2020--surgically repaired no fracture unburied fluid. History of throat surgery Vocal cord 12/28/20 [place]--Dilation and removal of vocal cord S/P carpal tunnel release 2009--right-sided S/P section 2007 S/P cholecystectomy 02/09/2019---laparoscopic procedure Status post hysterectomy 03/04/2022---robot-assisted laparoscopic total hysterectomy and bilateral salpingectomy by Dr. Natividad Bobo in [facility]. Pathology showed endometriosis but was otherwise benign. ---> Operative reports have been scanned Status post surgery X 2 2020--Vocal cord reconstructive surgery performed in [facility] in [place] after damage to vocal cords with prolonged intubation. [place] teeth extracted Family History Father Hypertension Grandmother Diabetes maternal and paternal Denies family history of Colon cancer Ovarian cancer Heart disease Hyperlipidemia Breast cancer Uterine cancer Thyroid condition Stroke Social History Smoking and tobacco status: never smoked Substance/Drug Use: never Do you think of yourself as: Straight/Heterosexual Physical Exam Const: COMMON NORMALS: no acute distress, average body habitus, patient kiana ented x3, no limitations, healthy appearing, alert and well nourished HENMT: COMMON NORMALS: normocephalic, atraumatic, hearing grossly normal michele aterally, external ears normal, Normal external nose present and moist oral mucous membranes HEAD & SCALP: normocephalic and atraumatic NOSE: Normal external nose present EXTERNAL EAR: Yes external ears normal Neck/C-Spine: COMMON NORMALS: full ROM, no lymphadenopathy, supple, no meningeal signs, no JVD and Thyroid normal THYROID: Thyroid normal Chest: COMMONS NORMALS: normal inspection of the chest and normal palpation of entire chest wall Resp: COMMON NORMALS: normal respiratory effort, No retractions, No use of accessory muscles and clear to auscultation bilaterally AUSCULTATION: clear to auscultation bilaterally Cardio: COMMON NORMALS: no JVD, regular rate, regular rhythm, S1 normal heart sound present, S2 normal heart sound present, No gallops present (Cardio), No clicks present (Cardio), No murmurs present (Cardio) and No rub (Cardio) RATE: regular rate RHYTHM: regular rhythm HEART SOUNDS: S1 normal heart sound present and S2 normal heart sound present GI: COMMON NORMALS: Normal to inspection, nondistended, normoactive bowel sounds present, Soft to palpation, non-tender, No hepatosplenomegaly present and no masses PALPATION: Yes Soft to palpation and Yes No hepatosplenomegaly present : COMMON NORMALS: Yes no CVA tenderness BLADDER/KIDNEY EXAM: Yes no CVA tenderness Back/Pelvis: COMMON NORMALS: no CVA tenderness Neuro: COMMON NORMALS: patient oriented x3 SENSORIUM/ORIENTATION: Yes alert MENINGEAL SIGNS: Yes no meningeal signs Course Vital Signs: Vital signs: Vital Signs Temperature 98.2 F 03/20/23 12:25 Pulse Rate 69 03/20/23 15:06 Respiratory Rate 16 03/20/23 15:06 Blood Pressure 113/91 03/20/23 15:06 Pulse Oximetry 94 03/20/23 15:06 Oxygen Delivery Me thod Room Air 03/20/23 12:25 MDM - SOB/Dyspnea Medical Decision Making Presents to the ER with worsening shortness of breath and cough for a week after patient's family got better for a respiratory virus is going on a house. Patient does have a history of PEs and is on Eliquis. Lab work was obtained which showed blood work was unremarkable CTA showed possible patchy infiltrates infectious or inflammatory. Patient's COVID status and influenza status are negative. Differential Diagnosis Unlikely acute exacerbation of chronic obstructive airways disease, congestive heart failure, community acquired pneumonia, asthma with exacerbation or pu lmonary embolism Medical Records I reviewed the patient's medical records. Lab Data I reviewed the patient's lab results. 03/20/23 12:53 03/20/23 14:20 Labs/Radiology: Radiology Impressions Chest CTA 03/20/23 12:43 IMPRESSION: 1. Proximal main pulmonary arteries are normal. No evidence of pulmonary embolus. 2. Patchy infiltrates in the LEFT lower lobe suspicious for pneumonitis. Additional hazy groundglass infiltrates in RIGHT upper lobe also likely infectious or inflammatory. Recommend correlation for Covid 19 pneumonia. 3. No focal consolidation or pleural fluid. 4. No other acute findings. Laboratory Results WBC 6.9 10^3/uL (4.0-10.0) 03/20/23 12:53 RBC 4.60 10^6/uL (4.1-5.3) 03/20/23 12:53 Hgb 13.7 g/dL (11.5-15.3) 03/20/23 12:53 Hct 42.1 % (37.0-47.0) 03/20/23 12:53 MCV 91.5 fl (81-99) 03/20/23 12:53 MCH 29.8 pg (28.0-34.0) 03/20/23 12:53 MCHC 32.5 g/dL (30.0-36.0) 03/20/23 12:53 RDW 13.2 % (12.1-15.1) 03/20/23 12:53 Plt Count 181 10^3/cmm (130-400) 03/20/23 12:53 MPV 10.6 fL (7.4-10.4) H 03/20/23 12:53 Neut % (Auto) 55.2 % 03/20/23 12:53 Lymph % (Auto) 35.1 % 03/20/23 12:53 Waller % (Auto) 5.7 % 03/20/23 12:53 Eos % (Auto) 2.2 % 03/20/23 12:53 Baso % (Auto) 1.2 % 03/20/23 12:53 Neut # (Auto) 3.80 10^3/uL (1.8-7.7) 03/20/23 12:53 Lymph # (Auto) 2.4 10^3/uL (0.8-4.8) 03/20/23 12:53 Waller # (Auto) 0.4 10^3/uL (0.2-0.9) 03/20/23 12:53 Eos # (Auto) 0.2 10^3/uL (0.0-0.8) 03/20/23 12:53 Baso # (Auto) 0.1 10^3/uL (0.0-0.1) 03/20/23 12:53 Nucleated RBC % (auto) 0 % 03/20/23 12:53 Nucleated RBCs # 0.0 /100WBC 03/20/23 12:53 Sodium 137 mmol/L (136-145) 03/20/23 14:20 Potassium 4.5 mmol/L (3.5-5.1) 03/20/23 14:20 Chloride 101 mmol/L (98-107) 03/20/23 14:20 Carbon Dioxide 25 mmol/L (22-29) 03/20/23 14:20 Anion Gap 15.5 (5-19) 03/20/23 14:20 BUN 11 mg/dL (6-20) 03/20/23 14:20 Creatinine 0.7 mg/dL (0.5-0.9) 03/20/23 14:20 GFR Calculation 89.3 mL/min (90-130) L 03/20/23 14:20 Glucose 105 mg/dL (65-115) 03/20/23 14:20 Calculated Osmolality 284 mOsm/kg (285-295) L 03/20/23 14:20 Calcium 9.6 mg/dL (8.5-10.5) 03/20/23 14:20 Total Bilirubin 0.3 mg/dL (0.15-1.2) 03/20/23 14:20 AST 17 U/L (0-32) 03/20/23 14:20 ALT 19 U/L (0-33) 03/20/23 14:20 Alkaline Phosphatase 52 U/L (35-105) 03/20/23 14:20 Troponin T Baseline 6 ng/L (0-10) 03/20/23 12:53 Troponin T 120 Minute 6.00 ng/L (0-10) 03/20/23 14:20 Delta Troponin T 0 ABS# (0-10) 03/20/23 14:20 NT-Pro-B Natriuret Pep 36 pg/mL (0-125) 03/20/23 14:20 Total Protein 6.8 g/dL (6.6-8.7) 03/20/23 14:20 Albumin 4.2 g/dL (3.5-5.2) 03/20/23 14:20 Globulin 2.6 g/dL (1.3-4.6) 03/20/23 14:20 Urine Color Yellow (Yellow) 03/20/23 14:28 Urine Appearance Clear (CLEAR) 03/20/23 14:28 Urine pH 5 (5-7) 03/20/23 14:28 Ur Specific [place] 1.010 (1.005-1.030) 03/20/23 14:28 Urine Protein Neg (Negative) 03/20/23 14:28 Urine Glucose (UA) Norm (Normal) 03/20/23 14:28 Urine Ketones Negative (Negative) 03/20/23 14:28 Urine Blood Neg (Negative) 03/20/23 14:28 Urine Nitrate Negative (Negative) 03/20/23 14:28 Urine Bilirubin Neg (Negative) 03/20/23 14:28 Urine Urobilinogen Norm mg/dL (Negative) 03/20/23 14:28 Ur Leukocyte Esterase Negative (Negative) 03/20/23 14:28 Influenza Type A Ag negative (Negative) 03/20/23 15:04 Influenza Type B Ag negative (Negative) 03/20/23 15:04 SARS-CoV-2 Ag (Rapid) negative (Negative) 03/20/23 15:04 EKG Data EKG 1: I personally reviewed and interpreted this EKG as follows: EKG Interpretation Date: 03/20/23 EKG interpretation time: 12:32 Prior EKG tracings: not available for review Interpretation: EKG showed normal sinus rhythm ventricular rate 71 bpm, NH interval 161, QRS duration 88, QTc of 414, moderate T wave abnormality with negative T waves in V3 and V4 EKG 2: I personally reviewed and interpreted this EKG as follows: EKG Interpretation Date: 03/20/23 EKG interpretation time: 14:45 Prior EKG tracings: available for review Interpretation: EKG showed normal sinus rhythm with ventricular rate of 60 bpm, NH interval 164, QRS duration 92, QTc of 421, nonspecific T wave abnormality Discharge Plan Discharge Patient Disposition: Home Clinical Impression: Acute upper respiratory infection Condition: Stable Prescriptions: No Action omeprazole 20 mg capsule,delayed release(DR/EC) 20 mg PO DAILY albuterol sulfate 2.5 mg /3 mL (0.083 %) solution for nebulization 2.5 mg INHALATION Q6H PRN (Reason: shortness of breath or wheezing) Qty: 180 3RF gabapentin 800 mg tablet 800 mg PO Q6H 30 Days Qty: 120 1RF acetaminophen 500 mg capsule 500 mg PO Q4H PRN (Reason: Pain) chlorpheniramine maleate [Allergy (chlorpheniramine)] 4 mg tablet 4 mg PO DAILY PRN (Reason: Allergy Symptoms) diphenhydramine HCl [Benadryl] 25 mg capsule 25 mg PO TID PRN (Reason: Allergic Symptoms) indomethacin 50 mg capsule 50 mg PO BID PRN (Reason: Headache) Rx Instructions: administer with food or milk buspirone 15 mg tablet 30 mg PO DAILY fexofenadine [Deepa Allergy] 60 mg tablet 60 mg PO BID PRN (Reason: Allergy Symptoms) multivitamin Tablet 1 tab PO DAILY cyclobenzaprine 10 mg tablet See Rx Instructions .ROUTE .COMPLEX Rx Instructions: 20 mg orally in the am and 60 mg at bedtime (DME) blood sugar diagnostic Strip See Rx Instructions .ROUTE .MEDSUPPLY Qty: 200 3RF Rx Instructions: As directed to test blood sugar 1-2 times a day (DME) blood-glucose meter [Blood Glucose Monitoring] Kit See Rx Instructions .ROUTE .MEDSUPPLY Qty: 1 0RF Rx Instructions: As directed to test 1-2 time a day (DME) lancets 33 gauge misc See Rx Instructions .ROUTE .MEDSUPPLY Qty: 200 3RF Rx Instructions: As directed to test blood sugar 1-2 times a day. Eliquis 5 mg tablet 5 mg PO BID Qty: 180 2RF metoprolol succinate 50 mg tablet extended release 24 hr 50 mg PO BID ondansetron 4 mg tablet,disintegrating 4 mg PO Q8H PRN (Reason: nausea and vomiting) Qty: 7 0RF albuterol sulfate 90 mcg/actuation HFA aerosol inhaler 2 inh inhalation Q4H PRN (Reason: shortness of breath or wheezing) Qty: 8.5 0RF ibuprofen 800 mg tablet 800 mg PO TID PRN (Reason: Pain) sertraline 100 mg tablet 200 mg PO BEDTIME nystatin 100,000 unit/gram cream 1 applic topical BID PRN (Reason: Rash) Wellbutrin XL 300 mg tablet extended release 24 hr 300 mg PO BEDTIME Discharge Orders: Discharge ED (Routine); Ordered 03/20/23 Ordered By: Keaton Dubon Referrals: Florian Akers MD [Primary Care Provider] - 1 week Patient Instructions: Upper Respiratory Infection - Adult Activity Restrictions/Additional Instructions: Please continue all current medications. Please follow-up with your family practice doctor in the next 7 days as needed. Please return to the ER for worsening shortness of breath. Coding Level of Care Code ED Water Safety Teacher for Chelsey Magana
--- NOTE | 2023-03-20 14:03 | PC.PHAR ---
PT STATESBUPROPION XL 300 IS TAKEN IN THE EVENING, MOTRIN 800 MG IS FOR DENTAL WORK, CYCLOBENZAPRINE 10 MG IS 1 IN THE AM AND 3 AT BEDTIME,AND SERTRALINE 100 MG IS AT BEDTIME.
[2023-03-20 14:33] LABS: Add Urine Microscopic? NO; Charge for UA Resulting for Rev
[2023-03-20 14:39] LABS: Bilirubin Urine Neg (Negative); Blood Urine Neg (Negative); Glucose Urine UA Norm (Normal); Ketones Urine Negative (Negative); Leukocyte Esterase Urine Negative (Negative); Nitrate Urine Negative (Negative); Protein Urine Neg (Negative); Urine Appearance Clear (CLEAR); Urine Color Yellow (Yellow); Urobilinogen Urine Norm (Negative); pH Urine 5 (5-7)
--- NOTE | 2023-03-20 14:44 | ECG_ITS ---
[facility] Test Date: 2023-03-20 Pat Name: Carmen Hooper Department: Room: Gender: Female Spout Positioner: : 1975 Requested By: Keaton Dubon Order Number: [id number] Meme MD: Miguel Angel De La Cruz M.D. Measurements Intervals [place] Rate: 68 P: 27 [place]: 164 QRS: 39 QRSD: 92 T: 58 QT: 403 QTc: 432 Interpretive Statements SINUS RHYTHM LOW QRS VOLTAGE IN PRECORDIAL LEADS [QRS DEFLECTION < 1.0 mV IN CHEST LEADS] NONSPECIFIC T-WAVE ABNORMALITY Compared to ECG 03/20/2023 12:32:37 Possible ischemia no longer present T-wave abnormality still present Electronically Signed On 03-20-2023 18:44:39 CDT by Miguel Angel De La Cruz M.D. [id number]
[2023-03-20 15:06] VITALS: BP 113/91; PULSE 69; RESP 16; O2SAT 94
[2023-03-20 15:20] LABS: Alanine Aminotransferase 19 U/L (0-33); Albumin Level 4.2 g/dL (3.5-5.2); Alkaline Phosphatase 52 U/L (35-105); Anion Gap 15.5 (5-19); Aspartate Amino Transferase 17 U/L (0-32); Blood Urea Nitrogen 11 mg/dL (6-20); Calcium 9.6 mg/dL (8.5-10.5); Carbon Dioxide 25 mmol/L (22-29); Chloride 101 mmol/L (98-107); Globulin 2.6 g/dL (1.3-4.6); Glomerular Filtration Rate 89.3 mL/min (90-130); Glucose 105 mg/dL (65-115); NT Pro B Type Natriuretic Pept 36 pg/mL (0-125); Osmolality Calculated 284 mOsm/kg (285-295); Potassium 4.5 mmol/L (3.5-5.1); Sodium 137 mmol/L (136-145); Total Bilirubin 0.3 mg/dL (0.15-1.2); Total Protein 6.8 g/dL (6.6-8.7)
[2023-03-20 15:35] LABS: Influenza A by IFA negative (Negative); Influenza B by IFA negative (Negative)
[2023-03-20 15:36] LABS: SARS Covid-2 Antigen negative (Negative)
[2023-03-20 15:50] LABS: Troponin 5 2HR Delta 0 ABS# (0-10)
[2023-03-20] MEDS: methylPREDNISolone sod succ 125 MG in water for injection-sterile 2 ML 24 MG IVP (16:07)
[2023-03-20 16:20] VITALS: BP 122/75; PULSE 68; RESP 16; O2SAT 96
== END 2023-03-20 16:22 | disposition home or self-care (01) ==
PROVIDERS: Emergency Provider Emergency Medicine; PCP Family Medicine
DX: J06.9 Acute upper respiratory infection, unspecified (principal); J45.909 Unspecified asthma, uncomplicated; Z79.899 Other long term (current) drug therapy; Z79.01 Long term (current) use of anticoagulants; Z86.711 Personal history of pulmonary embolism
CPT/HCPCS: 36415; 71275; 80053; 81003; 83880; 84484; 85025; 87426; 87804; 93005; 96374; 99285; J2930; Q9967

== ENCOUNTER → 2023-06-23 13:32 | Outpatient (BNVA) | payer MEDICARE, MEDICAID, SELFPAY | PROVIDERS: PCP Family Medicine; Visit Provider Nurse Practitioner Family | DX: Z85.820 Personal history of malignant melanoma of skin (principal); D22.5 Melanocytic nevi of trunk; L57.8 Other skin changes due to chronic exposure to nonionizing radiation; L85.3 Xerosis cutis; D23.72 Other benign neoplasm of skin of left lower limb, including hip; L71.8 Other rosacea | CPT/HCPCS: 99213 ==

== ENCOUNTER 2023-07-01 20:00 | Outpatient (CLI) | payer MEDICARE, MEDICAID, SELFPAY | END 2023-07-01 20:01 | disposition home or self-care (01) | LOC: SLEEP 07-02 06:03 | PROVIDERS: PCP Family Medicine; Visit Provider Internal Medicine Pulmonary Disease | DX: G47.33 Obstructive sleep apnea (adult) (pediatric) (principal) | CPT/HCPCS: 95811 ==

== ENCOUNTER → 2023-12-30 11:04 | Outpatient (BNVA) | payer MEDICARE, MEDICAID, SELFPAY | PROVIDERS: PCP Family Medicine; Visit Provider Nurse Practitioner Family | DX: D22.5 Melanocytic nevi of trunk (principal); L57.8 Other skin changes due to chronic exposure to nonionizing radiation; L85.3 Xerosis cutis; D23.72 Other benign neoplasm of skin of left lower limb, including hip; L71.8 Other rosacea; L82.1 Other seborrheic keratosis; Z85.820 Personal history of malignant melanoma of skin | CPT/HCPCS: 99213 ==

== ENCOUNTER → 2024-01-19 13:24 | Outpatient (BNVA) | payer MEDICARE, SELFPAY | PROVIDERS: PCP Family Medicine; Visit Provider Internal Medicine Pulmonary Disease | DX: G47.30 Sleep apnea, unspecified (principal); R49.0 Dysphonia; I26.99 Other pulmonary embolism without acute cor pulmonale; J45.909 Unspecified asthma, uncomplicated; Z79.01 Long term (current) use of anticoagulants | CPT/HCPCS: 99214 ==

== ENCOUNTER 2024-06-18 11:04 | Emergency (ER) | payer MEDICARE, SELFPAY ==
[2024-06-18 11:19] VITALS: BP 132/87; PULSE 82; RESP 18; TEMP 36.9; O2SAT 96; BMI 47.8
--- NOTE | 2024-06-18 11:32 | USR_ITS ---
PROCEDURE INFORMATION: Exam: US Duplex Left Lower Extremity Veins, Limited Exam date and time: 06/18/2024 12:04 PM Age: 48 years old Clinical indication: Pain; Leg, lower; Left; Additional info: Leg pain TECHNIQUE: Imaging protocol: Real-time duplex ultrasound of the left extremity with 2-D sevilla scale, color Doppler flow and spectral waveform analysis including responses to compression and other maneuvers (when performed) with image documentation. Limited exam focused on the left lower extremity veins. COMPARISON: US pelv w/transvag [id number] 11/25/2021 11:06 PM FINDINGS: Left deep veins: Unremarkable. The common femoral, femoral, proximal profunda femoral and popliteal veins are patent without thrombus. Normal Doppler waveforms. Normal compressibility and/or augmentation response. Superficial veins: Greater saphenous vein at the saphenofemoral junction is patent without thrombus. Soft tissues: Unremarkable. US/[place] [id number] IMPRESSION: No DVT.
--- NOTE | 2024-06-18 11:33 | W.ED.EXTPRO ---
HPI - Extremity Problem General: Chief complaint: Extremity Injury, Lower Stated complaint: SOB, Bruise/Pain in calf Time Seen by Provider: 06/18/24 11:30 Source: patient Mode of arrival: ambulatory Limitations: no limitations History of Present Illness: 48-year-old female states she is walking yesterday felt some pain in her calf and she has had bruising today she is on Eliquis she has a history of blood clots concerned she have a DVT had some pain that She rates of 3 out of 10 she has been ambulatory denies any falls. Associated symptoms: Deny chest pain, fever(s) or rash Related Data Home Medications Medication Instructions Recorded Confirmed acetaminophen 500 mg capsule 500 mg PO Q4H PRN Pain 09/05/19 01/19/24 chlorpheniramine maleate 4 mg 4 mg PO DAILY PRN Allergy Symptoms 09/05/19 01/19/24 tablet (Allergy (chlorpheniramine)) omeprazole 20 mg capsule,delayed 20 mg PO DAILY 03/05/20 01/19/24 release metoprolol succinate 50 mg 50 mg PO BID 11/25/21 01/19/24 tablet,extended release 24 hr buspirone 15 mg tablet 30 mg PO DAILY anxiety 12/04/21 01/19/24 indomethacin 50 mg capsule 50 mg PO BID PRN Headache 12/04/21 01/19/24 diphenhydramine HCl 25 mg capsule 25 mg PO TID PRN Allergic Symptoms 12/19/21 01/19/24 (Benadryl) fexofenadine 60 mg tablet (Deepa 60 mg PO BID PRN Allergy Symptoms 01/15/22 01/19/24 Allergy) multivitamin 1 tab PO DAILY 02/05/22 01/19/24 bupropion HCl 300 mg 24 hr tablet, 300 mg PO BEDTIME 03/20/23 01/19/24 extended release (Wellbutrin XL) ibuprofen 800 mg tablet 800 mg PO TID PRN Pain 03/20/23 01/19/24 nystatin 100,000 unit/gram topical 1 applic topical BID PRN Rash 03/20/23 01/19/24 cream sertraline 100 mg tablet 200 mg PO BEDTIME 03/20/23 01/19/24 cyclobenzaprine 10 mg tablet 20 mg PO BID muscle spasm 01/19/24 01/19/24 galcanezumab-gnlm 120 mg/mL mg SUBCUT .monthly 01/19/24 01/19/24 subcutaneous pen injector (Emgality Pen) prochlorperazine maleate 5 mg 5 mg PO TID PRN 01/19/24 01/19/24 tablet (Compazine) ubrogepant 50 mg tablet (Ubrelvy) 50 mg PO PRN 01/19/24 01/19/24 Previous Rx's Medication Instructions Recorded blood sugar diagnostic #200 ea 10/19/20 blood-glucose meter (Blood Glucose #1 ea 10/19/20 Monitoring kit) lancets 33 gauge #200 ea 10/19/20 gabapentin 800 mg tablet 800 mg PO Q6H 30 days #120 tabs 06/12/21 albuterol sulfate 2.5 mg/3 mL 2.5 mg (3 mL) inhalation Q6H PRN 06/20/21 (0.083 %) solution for nebulization shortness of breath or wheezing #180 mL ondansetron 4 mg disintegrating 4 mg PO Q8H PRN nausea and 11/26/21 tablet vomiting #7 tabs albuterol sulfate 90 mcg/actuation 2 inh inhalation Q4H PRN shortness 09/21/22 aerosol inhaler of breath or wheezing #8.5 grams apixaban 5 mg tablet (Eliquis) 5 mg PO BID #180 tabs 02/01/24 Allergies Allergy/AdvReac Type Severity Reaction Status Date / Time metoclopramide [From Reglan] AdvReac shortness Verified 06/18/24 11:18 of breath promethazine [From Phenergan] AdvReac shortness Verified 06/18/24 11:18 of breath Review of Systems Const: Denies: fever(s), chills, body aches or change in appetite ENMT: Denies: throat pain or dental pain Card: Denies: chest pain Resp: Denies: dyspnea GI: Denies: abdominal pain, nausea, vomiting or diarrhea Musc: Reports: extremity pain; Denies: neck pain or back pain Skin/Breast: Denies: rash Neuro: Denies: headache(s) PFSH ED PFSH: Medical History Tachycardia States is on medication to control heart rate managed by PMD. 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 Asthma Diagnosed in 2019 after COVID. 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 No pertinent past medical history Denies diabetes, asthma, hypertension, seizures, DVT PCP:Dr. Akers Chronic neck and back pain Pulmonary embolism x 2 2015---had a pulmonary embolism during usage of NuvaRing and was on blood thinners for 6 months. May 2020--had 2 PEs when she had COVID ---> Has been on Eliquis since 2019 managed by PMD. Juvencio-Danlos syndrome Type III per patient---causes chronic neck pain and she sees pain management. Chiari malformation Chronic migraine Reports migraines with aura's-follows up with a neurologist Dr. Haines Major depressive disorder, recurrent, moderate Anxiety and depression--- since age of 12. Has been on medication and sees [facility] Surgical History Status post hysterectomy 03/04/2022---robot-assisted laparoscopic total hysterectomy and bilateral salpingectomy by Dr. Natividad Bobo in [facility]. Pathology showed endometriosis but was otherwise benign. ---> Operative reports have been scanned History of throat surgery Vocal cord 12/28/20 [place]--Dilation and removal of vocal cord Status post surgery X 2020--Vocal cord reconstructive surgery performed in [facility] in [place] after damage to vocal cords with prolonged intubation. History of foot surgery December 2020--surgically repaired no fracture unburied fluid. S/P section 2007 [place] teeth extracted S/P cholecystectomy 02/09/2019---laparoscopic procedure S/P carpal tunnel release 2009--right-sided Family History Father Hypertension Grandmother Diabetes maternal and paternal Denies family history of Colon cancer Ovarian cancer Heart disease Hyperlipidemia Breast cancer Uterine cancer Thyroid disease Stroke Social History Smoking and tobacco/nicotine status: never used tobacco/nicotine Substance/Drug Use: never Do you think of yourself as: Straight/Heterosexual Physical Exam Const: COMMON NORMALS: no acute distress, patient oriented x3 and healthy appearing HENMT: COMMON NORMALS: normocephalic and atraumatic HEAD & SCALP: normocephalic and atraumatic Eye: COMMON NORMALS: conjunctivae normal CONJUNCTIVA: Yes conjunctivae normal Neck/C-Spine: COMMON NORMALS: full ROM and supple Chest: COMMONS NORMALS: normal inspection of the chest Resp: COMMON NORMALS: normal respiratory effort Cardio: COMMON NORMALS: regular rate, regular rhythm and No murmurs present (Cardio) RATE: regular rate RHYTHM: regular rhythm Extremity: NARRATIVE EXTREMITY EXAM: Bruising noted to left lower calf Neuro: COMMON NORMALS: patient oriented x3, moves all extremities and no focal motor deficits Psych: COMMON NORMALS: mental status grossly normal, Normal thought process present and cooperative THOUGHT PROCESS: Normal thought process present Skin: COMMON NORMALS: no rashes or lesions noted and no wounds GENERAL SKIN EXAM: no rashes or lesions noted Course Vital Signs: Vital signs: Vital Signs Temperature 98.5 F 06/18/24 11:19 Pulse Rate 82 06/18/24 11:19 Respiratory Rate 18 06/18/24 11:19 Blood Pressure 132/87 06/18/24 11:19 Pulse Oximetry 96 06/18/24 11:19 MDM - Extremity (Nontraumatic) Medical Decision Making Patient presents with contusion to her lower leg ultrasound here is negative she is stable for discharge follow-up with PCP return if worsening. Medical Records I reviewed the patient's medical records. All radiology interpretation(s) finalized by discharge Discharge Plan Discharge Patient Disposition: Home Clinical Impression: Contusion of left leg Qualifiers: Encounter type: initial encounter Qualified Code(s): S80.12XA - Contusion of left lower leg, initial encounter Condition: Stable Prescriptions: No Action omeprazole 20 mg capsule,delayed release(DR/EC) 20 mg PO DAILY albuterol sulfate 2.5 mg /3 mL (0.083 %) solution for nebulization 2.5 mg INHALATION Q6H PRN (Reason: shortness of breath or wheezing) Qty: 180 3RF gabapentin 800 mg tablet 800 mg PO Q6H 30 Days Qty: 120 1RF acetaminophen 500 mg capsule 500 mg PO Q4H PRN (Reason: Pain) chlorpheniramine maleate [Allergy (chlorpheniramine)] 4 mg tablet 4 mg PO DAILY PRN (Reason: Allergy Symptoms) diphenhydramine HCl [Benadryl] 25 mg capsule 25 mg PO TID PRN (Reason: Allergic Symptoms) indomethacin 50 mg capsule 50 mg PO BID PRN (Reason: Headache) Rx Instructions: administer with food or milk buspirone 15 mg tablet 30 mg PO DAILY fexofenadine [Deepa Allergy] 60 mg tablet 60 mg PO BID PRN (Reason: Allergy Symptoms) multivitamin Tablet 1 tab PO DAILY cyclobenzaprine 10 mg tablet 20 mg PO BID prochlorperazine maleate [Compazine] 5 mg tablet 5 mg PO TID PRN Emgality Pen 120 mg/mL pen injector SUBCUT .monthly Ubrelvy 50 mg tablet 50 mg PO PRN (DME) blood sugar diagnostic Strip See Rx Instructions .ROUTE .MEDSUPPLY Qty: 200 3RF Rx Instructions: As directed to test blood sugar 1-2 times a day (DME) blood-glucose meter [Blood Glucose Monitoring] Kit See Rx Instructions .ROUTE .MEDSUPPLY Qty: 1 0RF Rx Instructions: As directed to test 1-2 time a day (DME) lancets 33 gauge misc See Rx Instructions .ROUTE .MEDSUPPLY Qty: 200 3RF Rx Instructions: As directed to test blood sugar 1-2 times a day. Eliquis 5 mg tablet 5 mg PO BID Qty: 180 3RF metoprolol succinate 50 mg tablet extended release 24 hr 50 mg PO BID ondansetron 4 mg tablet,disintegrating 4 mg PO Q8H PRN (Reason: nausea and vomiting) Qty: 7 0RF albuterol sulfate 90 mcg/actuation HFA aerosol inhaler 2 inh inhalation Q4H PRN (Reason: shortness of breath or wheezing) Qty: 8.5 0RF ibuprofen 800 mg tablet 800 mg PO TID PRN (Reason: Pain) sertraline 100 mg tablet 200 mg PO BEDTIME nystatin 100,000 unit/gram cream 1 applic topical BID PRN (Reason: Rash) Wellbutrin XL 300 mg tablet extended release 24 hr 300 mg PO BEDTIME Discharge Orders: Discharge ED (Routine); Ordered 06/18/24 Ordered By: Raimundo Menjivar Referrals: Florian Akers MD [Primary Care Provider] - 4-7 days Discharge Diet: Advance as tolerated Discharge Activity: Resume usual activity Patient Instructions: Contusion in Adults (ED) Coding Level of Care Code ED Product Marketing Intern for Chelsey Magana
[2024-06-18 13:06] VITALS: BP 128/91; PULSE 79; RESP 16; O2SAT 97
== END 2024-06-18 13:05 | disposition home or self-care (01) ==
PROVIDERS: Emergency Provider Emergency Medicine; PCP Family Medicine
DX: S80.12XA Contusion of left lower leg, initial encounter (principal); X58.XXXA Exposure to other specified factors, initial encounter; Z79.01 Long term (current) use of anticoagulants; Z86.711 Personal history of pulmonary embolism
CPT/HCPCS: 93971; 99284

== ENCOUNTER 2024-06-30 17:45 | Emergency (ER) | payer MEDICARE, SELFPAY ==
[2024-06-30 18:05] VITALS: BMI 38.9
[2024-06-30 18:13] VITALS: BP 149/89; PULSE 84; RESP 16; TEMP 36.8; O2SAT 93
--- NOTE | 2024-06-30 18:35 | XRR_ITS ---
PROCEDURE INFORMATION: Exam: XR Right Ankle Exam date and time: 06/30/2024 7:23 PM Age: 48 years old Clinical indication: Injury or trauma; Fall; Swelling (edema) and other: Pain; Ankle; Right; Additional info: Fall, swelling, pain, HX of fracture with hardware TECHNIQUE: Imaging protocol: Radiologic exam of the right ankle. Views: 3 or more views. COMPARISON: CR XR foot RT min 3V* [id number] 06/13/2020 1:19 PM FINDINGS: Bones/joints: Osseous structures are intact. Negative for fracture. Joint spaces are preserved. Soft tissues: Soft tissue swelling around the ankle. XR/XR ankle RT min 3V* [id number] IMPRESSION: No acute findings.
[2024-06-30] MEDS: HYDROcodone-acetaminophen 5-325 mg Tablet 1 TAB PO (20:25)
--- NOTE | 2024-06-30 21:06 | W.ED.EXTPRO ---
HPI - Extremity Problem General: Chief complaint: Extremity Injury, Lower Stated complaint: Right foot injury Time Seen by Provider: 06/30/24 18:23 Source: patient Mode of arrival: wheelchair Limitations: no limitations History of Present Illness: Patient presents emergency department today accompanied by family for evaluation treatment of right lateral ankle swelling and pain. 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 Has had previous injury to this right foot in the past requiring indwelling hardware. States she also deals with POTS. She reports of being bent over tying her shoe and stood up suddenly. States when she stood up and turned to begin to walk, she got lightheaded and fell, patient twisted her ankle as she fell. She has significant swelling and bruising to the right lateral side of her ankle and comes in for evaluation. Related Data Home Medications Medication Instructions Recorded Confirmed acetaminophen 500 mg capsule 500 mg PO Q4H PRN Pain 09/05/19 01/19/24 chlorpheniramine maleate 4 mg 4 mg PO DAILY PRN Allergy Symptoms 09/05/19 01/19/24 tablet (Allergy (chlorpheniramine)) omeprazole 20 mg capsule,delayed 20 mg PO DAILY 03/05/20 01/19/24 release metoprolol succinate 50 mg 50 mg PO BID 11/25/21 01/19/24 tablet,extended release 24 hr buspirone 15 mg tablet 30 mg PO DAILY anxiety 12/04/21 01/19/24 indomethacin 50 mg capsule 50 mg PO BID PRN Headache 12/04/21 01/19/24 diphenhydramine HCl 25 mg capsule 25 mg PO TID PRN Allergic Symptoms 12/19/21 01/19/24 (Benadryl) fexofenadine 60 mg tablet (Deepa 60 mg PO BID PRN Allergy Symptoms 01/15/22 01/19/24 Allergy) multivitamin 1 tab PO DAILY 02/05/22 01/19/24 bupropion HCl 300 mg 24 hr tablet, 300 mg PO BEDTIME 03/20/23 01/19/24 extended release (Wellbutrin XL) ibuprofen 800 mg tablet 800 mg PO TID PRN Pain 03/20/23 01/19/24 nystatin 100,000 unit/gram topical 1 applic topical BID PRN Rash 03/20/23 01/19/24 cream sertraline 100 mg tablet 200 mg PO BEDTIME 03/20/23 01/19/24 cyclobenzaprine 10 mg tablet 20 mg PO BID muscle spasm 01/19/24 01/19/24 galcanezumab-gnlm 120 mg/mL mg SUBCUT .monthly 01/19/24 01/19/24 subcutaneous pen injector (Emgality Pen) prochlorperazine maleate 5 mg 5 mg PO TID PRN 01/19/24 01/19/24 tablet (Compazine) ubrogepant 50 mg tablet (Ubrelvy) 50 mg PO PRN 01/19/24 01/19/24 Previous Rx's Medication Instructions Recorded blood sugar diagnostic #200 ea 10/19/20 blood-glucose meter (Blood Glucose #1 ea 10/19/20 Monitoring kit) lancets 33 gauge #200 ea 10/19/20 gabapentin 800 mg tablet 800 mg PO Q6H 30 days #120 tabs 06/12/21 albuterol sulfate 2.5 mg/3 mL 2.5 mg (3 mL) inhalation Q6H PRN 06/20/21 (0.083 %) solution for nebulization shortness of breath or wheezing #180 mL ondansetron 4 mg disintegrating 4 mg PO Q8H PRN nausea and 11/26/21 tablet vomiting #7 tabs albuterol sulfate 90 mcg/actuation 2 inh inhalation Q4H PRN shortness 09/21/22 aerosol inhaler of breath or wheezing #8.5 grams apixaban 5 mg tablet (Eliquis) 5 mg PO BID #180 tabs 02/01/24 tizanidine 4 mg tablet 4 mg PO Q8H PRN muscle spasticity 06/30/24 #15 tabs Allergies Allergy/AdvReac Type Severity Reaction Status Date / Time metoclopramide [From Reglan] AdvReac shortness Verified 06/18/24 11:18 of breath promethazine [From Phenergan] AdvReac shortness Verified 06/18/24 11:18 of breath Review of Systems General: Reports: 10 or more systems reviewed and unremarkable except in HPI and below PFSH ED PFSH: Medical History Tachycardia States is on medication to control heart rate managed by PMD. 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 Asthma Diagnosed in 2019 after COVID. Follows up with Dr. Green-learning solutions specialist. No pertinent past medical history Denies diabetes, asthma, hypertension, seizures, DVT PCP:Dr. Akers Chronic neck and back pain Pulmonary embolism x 2 2015---had a pulmonary embolism during usage of NuvaRing and was on blood thinners for 6 months. May 2020--had 2 PEs when she had COVID ---> Has been on Eliquis since 2019 managed by PMD. Juvencio-Danlos syndrome Type III per patient---causes chronic neck pain and she sees pain management. Chiari malformation Chronic migraine Reports migraines with aura's-follows up with a neurologist Dr. Haines Major depressive disorder, recurrent, moderate Anxiety and depression--- since age of 12. Has been on medication and sees [facility] Surgical History Status post hysterectomy 03/04/2022---robot-assisted laparoscopic total hysterectomy and bilateral salpingectomy by Dr. Natividad Bobo in [facility]. Pathology showed endometriosis but was otherwise benign. ---> Operative reports have been scanned History of throat surgery Vocal cord 12/28/20 [place]--Dilation and removal of vocal cord Status post surgery X 2 2020--Vocal cord reconstructive surgery performed in [facility] in [place] after damage to vocal cords with prolonged intubation. History of foot surgery December 2020--surgically repaired no fracture unburied fluid. S/P section 2007 [place] teeth extracted S/P cholecystectomy 02/09/2019---laparoscopic procedure S/P carpal tunnel release 2009--right-sided Family History Father Hypertension Grandmother Diabetes maternal and paternal Denies family history of Colon cancer Ovarian cancer Heart disease Hyperlipidemia Breast cancer Uterine cancer Thyroid disease Stroke Social History Smoking and tobacco/nicotine status: never used tobacco/nicotine Substance/Drug Use: never Do you think of yourself as: Straight/Heterosexual Physical Exam Const: COMMON NORMALS: no acute distress, patient oriented x3 and alert OTHER: Patient is extremely pleasant and social. Vital signs are stable. HENMT: COMMON NORMALS: normocephalic, atraumatic and hearing grossly normal bilaterally HEAD & SCALP: normocephalic and atraumatic Eye: COMMON NORMALS: Equal, round and reactive pupils present, EOMs intact bilaterally and conjunctivae normal CONJUNCTIVA: Yes conjunctivae normal PUPIL: Yes Equal, round and reactive pupils present Neck/C-Spine: COMMON NORMALS: full ROM and no JVD Lymph: LYMPHATIC: no lymphadenopathy noted Resp: COMMON NORMALS: normal respiratory effort, No retractions and No use of accessory muscles Cardio: COMMON NORMALS: no JVD and regular rate RATE: regular rate Extremity: NARRATIVE EXTREMITY EXAM: Patient has significant swelling to the right ankle-especially the the lateral malleolus. There is also bruising to this area of the ankle. Patient still has flexion extension capabilities of her toes. Patient has a well-healed surgical scar in the middle of the dorsal aspect of the right midfoot. Neuro: COMMON NORMALS: patient oriented x3 SENSORIUM/ORIENTATION: Yes alert Psych: COMMON NORMALS: mental status grossly normal, Normal thought process present, cooperative and normal affect THOUGHT PROCESS: Normal thought process present Skin: COMMON NORMALS: no rashes or lesions noted and turgor normal GENERAL SKIN EXAM: no rashes or lesions noted and turgor normal Course Vital Signs: Vital signs: Vital Signs Temperature 98.2 F 06/30/24 18:13 Pulse Rate 80 06/30/24 21:32 Respiratory Rate 18 06/30/24 21:32 Blood Pressure 107/67 06/30/24 21:32 Pulse Oximetry 94 06/30/24 21:32 Oxygen Delivery Me thod Room Air 06/30/24 18:13 MDM - Extremity (Nontraumatic) Medical Decision Making Patient presents today for concerns of injury to her right ankle. Patient has Juvencio-Danlos and often has issues with her joints. Patient has had to have surgery on her right foot and currently has indwelling hardware from an injury sustained in the past. Patient's x-ray today revealed no signs of any acute bony abnormality however, patient has significant soft tissue swelling and bruising noted to the lateral malleolus. Given her history of Juvencio-Danlos and physical examination findings, I am encouraging her to continue to use her walking boot but, should remain nonweightbearing on crutches until she is able to follow-up with orthopedics. I did place a request for case management to have the patient follow-up with orthopedics for her injury. Encouraged elevation of the extremity. Patient is anticoagulated so we will treat with Tylenol, ice, and muscle relaxer at this time. She was treated acutely here in the emergency department for her pain. Patient verbalizes her understanding and agreement to treatment plan. Differential Diagnosis Likely lower extremity edema; Unlikely herpes zoster, gout, cellulitis, superficial thrombophlebitis or deep vein thrombosis of lower extremity Lab Data Radiology Impressions Ankle X-Ray 06/30/24 18:35 IMPRESSION: No acute findings. All radiology interpretation(s) finalized by discharge Discharge Plan Discharge Patient Disposition: Home Clinical Impression: Ankle sprain and strain Condition: Stable Prescriptions: New tizanidine 4 mg tablet 4 mg PO Q8H PRN (Reason: muscle spasticity) Qty: 15 0RF No Action omeprazole 20 mg capsule,delayed release(DR/EC) 20 mg PO DAILY albuterol sulfate 2.5 mg /3 mL (0.083 %) solution for nebulization 2.5 mg INHALATION Q6H PRN (Reason: shortness of breath or wheezing) Qty: 180 3RF gabapentin 800 mg tablet 800 mg PO Q6H 30 Days Qty: 120 1RF acetaminophen 500 mg capsule 500 mg PO Q4H PRN (Reason: Pain) chlorpheniramine maleate [Allergy (chlorpheniramine)] 4 mg tablet 4 mg PO DAILY PRN (Reason: Allergy Symptoms) diphenhydramine HCl [Benadryl] 25 mg capsule 25 mg PO TID PRN (Reason: Allergic Symptoms) indomethacin 50 mg capsule 50 mg PO BID PRN (Reason: Headache) Rx Instructions: administer with food or milk buspirone 15 mg tablet 30 mg PO DAILY fexofenadine [Deepa Allergy] 60 mg tablet 60 mg PO BID PRN (Reason: Allergy Symptoms) multivitamin Tablet 1 tab PO DAILY cyclobenzaprine 10 mg tablet 20 mg PO BID prochlorperazine maleate [Compazine] 5 mg tablet 5 mg PO TID PRN Emgality Pen 120 mg/mL pen injector SUBCUT .monthly Ubrelvy 50 mg tablet 50 mg PO PRN (DME) blood sugar diagnostic Strip See Rx Instructions .ROUTE .MEDSUPPLY Qty: 200 3RF Rx Instructions: As directed to test blood sugar 1-2 times a day (DME) blood-glucose meter [Blood Glucose Monitoring] Kit See Rx Instructions .ROUTE .MEDSUPPLY Qty: 1 0RF Rx Instructions: As directed to test 1-2 time a day (DME) lancets 33 gauge misc See Rx Instructions .ROUTE .MEDSUPPLY Qty: 200 3RF Rx Instructions: As directed to test blood sugar 1-2 times a day. Eliquis 5 mg tablet 5 mg PO BID Qty: 180 3RF metoprolol succinate 50 mg tablet extended release 24 hr 50 mg PO BID ondansetron 4 mg tablet,disintegrating 4 mg PO Q8H PRN (Reason: nausea and vomiting) Qty: 7 0RF albuterol sulfate 90 mcg/actuation HFA aerosol inhaler 2 inh inhalation Q4H PRN (Reason: shortness of breath or wheezing) Qty: 8.5 0RF ibuprofen 800 mg tablet 800 mg PO TID PRN (Reason: Pain) sertraline 100 mg tablet 200 mg PO BEDTIME nystatin 100,000 unit/gram cream 1 applic topical BID PRN (Reason: Rash) Wellbutrin XL 300 mg tablet extended release 24 hr 300 mg PO BEDTIME Discharge Orders: Discharge ED (Routine); Ordered 06/30/24 Ordered By: Waleska Gaspar Referrals: Florian Akers MD [Primary Care Provider] - Discharge Diet: Usual diet Discharge Activity: Limit activity as instructed Patient Instructions: Ankle Sprain (ED) Activity Restrictions/Additional Instructions: The radiologist found no signs of any acute bony fracture in your ankle and no signs of any disruption to your indwelling hardware. However, you have significant swelling and bruising to your right ankle indicative of soft tissue injury. For that reason, and with your history of Juvencio-Danlos, I would like you to continue wearing your boot. Please use the crutches provided to remain completely nonweightbearing on your right lower extremity until you are seen and evaluated by orthopedics. I have requested our case management worker assisting getting you a follow-up appointment and you should be notified about getting in with orthopedics for reevaluation. Until then, is much as possible, keep your foot up and elevated. Of also provided you a short course of some medication you can take to help with your pain. This will not conflict with your apixaban, indomethacin, or ibuprofen. However, this medication can make you feel drowsy and sedated so be extremely careful in taking it. Coding Level of Care Code ED Medical Field Representative for Chelsey Magana
[2024-06-30] MEDS: tizanidine 4 mg Tablet PO (21:17)
[2024-06-30 21:32] VITALS: BP 107/67; PULSE 80; RESP 18; O2SAT 94
--- NOTE | 2024-07-01 02:19 | DCPLANNER ---
Message sent to Ortho for RT ankle sprain strain
== END 2024-06-30 21:33 | disposition home or self-care (01) ==
PROVIDERS: Emergency Provider Physician Assistant; PCP Family Medicine
DX: S93.401A Sprain of unspecified ligament of right ankle, initial encounter (principal); W19.XXXA Unspecified fall, initial encounter; Z79.01 Long term (current) use of anticoagulants
CPT/HCPCS: 73610; 99283

== ENCOUNTER → 2024-07-05 12:53 | Outpatient (BNVA) | payer MEDICARE, SELFPAY | PROVIDERS: PCP Family Medicine; Visit Provider Podiatrist Foot & Ankle Surgery | DX: S93.401A Sprain of unspecified ligament of right ankle, initial encounter; S96.911A Strain of unspecified muscle and tendon at ankle and foot level, right foot, initial encounter; W18.39XA Other fall on same level, initial encounter; Q79.60 Ehlers-Danlos syndrome, unspecified | CPT/HCPCS: 99203 ==

== ENCOUNTER 2024-07-19 15:05 | Outpatient (CLI) | payer MEDICARE, SELFPAY | END 2024-07-19 15:06 | disposition home or self-care (01) | LOC: SPT 15:06 | PROVIDERS: PCP Family Medicine; Visit Provider Podiatrist Foot & Ankle Surgery | DX: Z46.89 Encounter for fitting and adjustment of other specified devices (principal); S93.409D Sprain of unspecified ligament of unspecified ankle, subsequent encounter; S96.919D Strain of unspecified muscle and tendon at ankle and foot level, unspecified foot, subsequent encounter; X58.XXXD Exposure to other specified factors, subsequent encounter | CPT/HCPCS: L1902 ==

== ENCOUNTER → 2024-08-04 11:14 | Outpatient (BNVA) | payer MEDICARE, SELFPAY | PROVIDERS: PCP Family Medicine; Visit Provider Nurse Practitioner Family | DX: L57.8 Other skin changes due to chronic exposure to nonionizing radiation (principal); L85.3 Xerosis cutis; D23.72 Other benign neoplasm of skin of left lower limb, including hip; L71.8 Other rosacea; L82.1 Other seborrheic keratosis; Z08 Encounter for follow-up examination after completed treatment for malignant neoplasm; Z85.820 Personal history of malignant melanoma of skin; Z57.0 Occupational exposure to noise | CPT/HCPCS: 17000; 99213 ==

== ENCOUNTER → 2024-08-10 13:11 | Outpatient (BNVA) | payer MEDICARE, SELFPAY | PROVIDERS: PCP Family Medicine; Visit Provider Podiatrist Foot & Ankle Surgery | DX: S93.401A Sprain of unspecified ligament of right ankle, initial encounter; S96.911A Strain of unspecified muscle and tendon at ankle and foot level, right foot, initial encounter; X58.XXXA Exposure to other specified factors, initial encounter | CPT/HCPCS: 99213 ==

== ENCOUNTER 2025-02-06 19:03 | Emergency (ER) | payer MEDICARE, SELFPAY ==
[2025-02-06 19:05] VITALS: BP 103/49; PULSE 84; RESP 18; TEMP 36.6; O2SAT 94; BMI 44.2
--- NOTE | 2025-02-06 19:17 | ED_ITS ---
HPI - Abdominal Pain 2 General: Chief Complaint: Abdominal Pain Stated Complaint: abdomen pain Time Seen by Provider: 02/06/25 19:04 History of Present Illness: 49-year-old female with a history of mor bid obesity, endometriosis status post multiple surgeries in the past, asthma, pulmonary embolism, chronic anticoagulation on Eliquis, migraines and depression who presents emergency room with abdominal pain. She is complaining of central abdominal pain. She says behind her bellybutton. She says she has had some severe nausea but no vomiting. She says this is similar to when she has had issues with her endometriosis in the past. No fevers. No altered mental status. No chest pain. Related Data Home Medications ?Medication ?Instructions ?Recorded ?Confirmed acetaminophen 500 mg capsule 500 mg PO Q4H PRN Pain 11/18/24 omeprazole 20 mg capsule,delayed 20 mg PO DAILY 11/18/24 release metoprolol succinate 50 mg 50 mg PO BID 11/25/2111/18 tablet,extended release 24 hr indomethacin 50 mg capsule 50 mg PO BID PRN Headache 0 12/04/21 11/18/24 diphenhydramine HCl 25 mg capsule 25 mg PO TID PRN All ergic Symptoms 12/19/21 11/18/24 (Benadryl) multivitamin 1 tab PO DAILY 02/05/2210/23 ibuprofen 800 mg tablet 800 mg PO TID PRN Pain 03/2011/18/24 nystatin 100,000 unit/gram topical 1 applic topical BI D PRN Rash 03/20/23 11/18/24 cream sertraline 100 mg tablet 200 mg PO BEDTIME 03/20/23 0 11/18/24 cyclobenzaprine 10 mg tablet 20 mg PO BID muscle spasm 01/19/24 11/18/24 galcanezumab-gnlm 120 mg/mL mg SUBCUT .monthly 4 11/18/24 subcutaneous pen injector (Emgality Pen) ubrogepant 50 mg tablet (Ubrelvy) 50 mg PO PRN 4 11/18/24 Previous Rx's ?Medication ?Instructions ?Recorded blood sugar diagnostic #200 ea 10/19/20 blood-glucose meter (Blood Glucose #1 ea 10/19/20 Monitoring kit) lancets 33 gauge #200 ea 10/19/20 gabapentin 800 mg tablet 800 mg PO Q6H 30 days #120 t abs 06/12/21 albuterol sulfate 2.5 mg/3 mL 2.5 mg (3 mL) inhalation Q6H PRN 06/20/21 (0.083 %) solution for nebulization shortness of breat h or wheezing #180 mL ondansetron 4 mg disintegrating 4 mg PO Q8H PRN nausea and 11/26/21 tablet vomiting #7 tabs albuterol sulfate 90 mcg/actuation 2 inh inhalation Q4 H PRN shortness 09/21/22 aerosol inhaler of breath or wheezing #8.5 g gideon apixaban 5 mg tablet (Eliquis) 5 mg PO BID #180 tabs 0 02/01/24 ASO #1 ea 07/19/24 bupropion HCl 300 mg 24 hr tablet, 300 mg PO BEDTIME # 30 tabs 01/12/25 extended release (Wellbutrin XL) fluoxetine 40 mg capsule (Prozac) 40 mg PO DAILY #30 c aps 02/03/25 buspirone 15 mg tablet 30 mg (2 x 15 mg) PO DAILY a nxiety 02/06/25 #30 tabs cefdinir 300 mg capsule 300 mg PO BID 10 days #20 ca ps 02/06/25 ondansetron 4 mg disintegrating 4 mg PO Q8H PRN nausea and 02/06/25 tablet vomiting #10 tabs Allergies Allergy/AdvReac Type Severity Reaction Status Date / Time metoclopramide (From Reglan) AdvReac shortness Verified 02/06/25 19:12 of breath promethazine (From Phenergan) AdvReac shortness Verified 02/06/25 19:12 of breath Review of Systems 2 Narrative: Constitutional symptoms: Negative except as documented in HPI. Skin symptoms: Negative except as documented in HPI. Eye symptoms: Negative except as documented in HPI. ENMT symptoms: Negative except as documented in HPI. Respiratory symptoms: Negative except as documented in HPI. Cardiovascular symptoms: Negative except as documented in HPI. Gastrointestinal symptoms: Negative except as documented in HPI. Genitourinary symptoms: Negative except as documented in HPI. Musculoskeletal symptoms: Negative except as documented in HPI. Neurologic symptoms: Negative except as documented in HPI. Psychiatric symptoms: Negative except as documented in HPI. Endocrine symptoms: Negative except as documented in HPI. PFS ED 2 [facility]: Medical History (Updated 02/06/25 @ 21:09 by Margie Sutton MD) Psychiatric care Tachycardia States is on medication to control heart rate managed by PMD. Does not have a neurodiagnostic technician. Asthma Diagnosed in 2019 after COVID. 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 No pertinent past medical history Denies diabetes, asthma, hypertension, seizures, DVT PCP:Dr. Akers Chronic neck and back pain Pulmonary embolism x 2 2015---had a pulmonary embolism during usage of NuvaRing and was on blood thinners for 6 months. May 2020--had 2 PEs when she had COVID ---> Has been on Eliquis since 2019 managed by PMD. Juvencio-Danlos syndrome Type III per patient---causes chronic neck pain and she sees pain management. Chiari malformation Chronic migraine Reports migraines with aura's-follows up with a neurologist Dr. Haines Major depressive disorder, recurrent, moderate Surgical History Status post hysterectomy 03/04/2022---robot-assisted laparoscopic total hysterectomy and bilateral salpingectomy by Dr. Natividad Bobo in [facility]. Pathology showed endometriosis but was otherwise benign. ---> Operative reports have been scanned History of throat surgery Vocal cord 12/28/20 [place]--Dilation and removal of vocal cord Status post surgery X 2020--Vocal cord reconstructive surgery performed in [facility] in [place] after damage to vocal cords with prolonged intubation. History of foot surgery December 2020--surgically repaired no fracture unburied fluid. S/P section 2007 [place] teeth extracted S/P cholecystectomy 02/09/2019---laparoscopic procedure S/P carpal tunnel release 2009--right-sided Family History Father Hypertension Grandmother Diabetes maternal and paternal Denies family history of Colon cancer Ovarian cancer Heart disease Hyperlipidemia Breast cancer Uterine cancer Thyroid disease Stroke Social History Smoking and tobacco/nicotine status: never used tobacco/nicotine Substance/Drug Use: never Do you think of yourself as: Straight/Heterosexual Physical Exam 2 Narrative: EXAM NARRATIVE: General: Alert, no acute distress. Skin: Warm, dry. Head: Normocephalic, atraumatic. Neck: Supple, trachea midline. Eye: Extraocular movements are intact. Ears, nose, mouth and throat: mucosa moist. Cardiovascular: Regular, Normal peripheral perfusion. Respiratory: Lungs are clear to auscultation, respirations are non-labored, breath sounds are equal, Symmetrical chest wall expansion. Gastrointestinal: Soft, central abdominal pain, Non distended Musculoskeletal: Normal ROM, no deformity. Neurological: Alert and oriented, No focal neurological deficit observed. Psychiatric: Cooperative, appropriate mood & affect. Course 2 Vital Signs: Vital signs: Vital Signs Temperature 97.9 F 02/06/25 19:05 Pulse Rate 84 02/06/25 19:05 Respiratory Rate 18 02/06/25 19:05 Blood Pressure 103/49 02/06/25 19:05 Pulse Oximetry 94 02/06/25 19:05 Oxygen Delivery Me thod Room Air 02/06/25 19:05 MDM - Abdominal Pain Medical Decision Making Medical decision making: Differential diagnosis for this patient with nausea and central abdominal pain including but not limited to and based on the above HPI, review of systems and physical exam: Urinary tract infection. Appendicitis. Cholecystitis. Colitis. small bowel obstruction. crohn's flare. pancreatitis. gastritis. peptic ulcer. cyclic vomiting. Viral illness. Influenza. COVID. Orders placed to evaluate differential diagnosis based on the above differential, HPI and physical exam Lab Review: Laboratory results were reviewed and interpreted by myself the emergency room physician. No leukocytosis. No anemia. No renal failure. Lactate is mildly elevated at 3.3. Urinalysis shows signs of infection and concentrated urine with indicate some dehydration. Greater than 100 whites leukocyte Estrace positive. Nitrate positive. CT of the abdomen pelvis shows no acute findings. Prior cholecystectomy and partial hysterectomy. Ovarian follicles. This was reviewed and interpreted by myself the emergency room physician. I also reviewed the radiology report. I reviewed the patient's medical record. Reexamination: Patient remained stable. No increased work of breathing. No altered mental status. No focal motor deficits. Patient's pain is improved considerably. Assessment and plan: Urinary tract infection Dehydration Abdominal pain ? Normal saline bolus and IV cefepime in the emergency room. - Discharged home - Discussed plan with patient. Answered any questions. - Evaluation and treatment of this problem were appropriate in the emergency setting. Lab Data 02/06/25 19:15 02/06/25 19:15 Labs/Radiology: Radiology Impressions Abdomen/Pelvis CT 02/06/25 19:39 IMPRESSION: 1. No acute abdominopelvic findings. 2. Prior cholecystectomy and partial hysterectomy. 3. Simple appearing bilateral ovarian follicles as large as 12 mm. Laboratory Results WBC 6.05 10^3/uL (3.29-11.43) 02/06/25 19:15 RBC 4.62 10^6/uL (3.85-5.65) 02/06/25 19:15 Hgb 13.60 g/dL (11.27-16.99) 02/06/25 19:15 Hct 40.4 % (36-47) 02/06/25 19:15 MCV 87.4 fl (85-98) 02/06/25 19:15 MCH 29.4 pg (27-33) 02/06/25 19:15 MCHC 33.7 g/dL (30-55) 02/06/25 19:15 RDW 12.9 % (12.1-15.1) 02/06/25 19:15 Plt Count 160 10^3/cmm (157-399) 02/06/25 19:15 MPV 10.1 fL (7.4-10.4) 02/06/25 19:15 Neut % (Auto) 66.7 % 02/06/25 19:15 Lymph % (Auto) 23.5 % 02/06/25 19:15 [place] % (Auto) 8.3 % 02/06/25 19:15 Eos % (Auto) 0.5 % 02/06/25 19:15 Baso % (Auto) 0.7 % 02/06/25 19:15 Neut # (Auto) 4.04 10^3/uL (1.8-7.7) 02/06/25 19:15 Lymph # (Auto) 1.4 10^3/uL (0.8-4.8) 02/06/25 19:15 [place] # (Auto) 0.5 10^3/uL (0.2-0.9) 02/06/25 19:15 Eos # (Auto) 0.0 10^3/uL (0.0-0.8) 02/06/25 19:15 Baso # (Auto) 0.0 10^3/uL (0.0-0.1) 02/06/25 19:15 Nucleated RBC % (auto) 0 % 02/06/25 19:15 Nucleated RBCs # 0.0 /100WBC 02/06/25 19:15 Sodium 135 mmol/L (136-145) L 02/06/25 19:15 Potassium 4.0 mmol/L (3.5-5.1) 02/06/25 19:15 Chloride 98 mmol/L (98-107) 02/06/25 19:15 Carbon Dioxide 20 mmol/L (22-29) L 02/06/25 19:15 Anion Gap 21.0 (5-19) H 02/06/25 19:15 BUN 11 mg/dL (6-20) 02/06/25 19:15 Creatinine 0.7 mg/dL (0.5-0.9) 02/06/25 19:15 GFR Calculation 88.6 mL/min (90-130) L 02/06/25 19:15 Glucose 146 mg/dL (65-115) H 02/06/25 19:15 Calculated Osmolality 282 mOsm/kg (285-295) L 02/06/25 19:15 Lactic Acid 3.3 mmol/L (0.5-2.2) H 02/06/25 19:15 Calcium 8.7 mg/dL (8.5-10.5) 02/06/25 19:15 Total Bilirubin 1.3 mg/dL (0.15-1.2) H 02/06/25 19:15 AST 173 U/L (0-32) H 02/06/25 19:15 ALT 148 U/L (0-33) H 02/06/25 19:15 Alkaline Phosphatase 65 U/L (35-105) 02/06/25 19:15 C-Reactive Protein 3.0 mg/L (0.0-4.9) 02/06/25 19:15 Total Protein 6.7 g/dL (6.6-8.7) 02/06/25 19:15 Albumin 4.0 g/dL (3.5-5.2) 02/06/25 19:15 Globulin 2.7 g/dL (1.3-4.6) 02/06/25 19:15 Lipase 43 U/L (13-60) 02/06/25 19:15 Urine Color [place] (Yellow) A 02/06/25 19:45 Urine Appearance Cloudy (CLEAR) A 02/06/25 19:45 Urine pH 5.5 (5-7) 02/06/25 19:45 Ur Specific [place] 1.029 (1.005-1.030) 02/06/25 19:45 Urine Protein Negative (Negative) 02/06/25 19:45 Urine Glucose (UA) Negative (Normal) 02/06/25 19:45 Urine Ketones Trace (Negative) 02/06/25 19:45 Urine Blood Negative (Negative) 02/06/25 19:45 Urine Nitrate Positive (Negative) A 02/06/25 19:45 Urine Bilirubin 1+ (Negative) H 02/06/25 19:45 Urine Urobilinogen 2.0 mg/dL (Negative) H 02/06/25 19:45 Ur Leukocyte Esterase 2+ (Negative) A 02/06/25 19:45 Urine RBC 3-5 /hpf (0-2) 02/06/25 19:45 Urine WBC >100 /hpf (0-5) H 02/06/25 19:45 Ur Squamous Epith Cells 0-5 /hpf (0-5) 02/06/25 19:45 Amorphous Sediment Not Reportable 02/06/25 19:45 Urine Bacteria Exceeds /hpf (NONE) 02/06/25 19:45 Hyaline Casts 1.21 /lpf 02/06/25 19:45 All radiology interpretation(s) finalized by discharge Discharge Plan Discharge Patient Disposition: Home Clinical Impression: Urinary tract infection Condition: Stable Prescriptions: New cefdinir 300 mg capsule 300 mg PO BID 10 Days Qty: 20 0RF ondansetron 4 mg tablet,disintegrating 4 mg PO Q8H PRN (Reason: nausea and vomiting) Qty: 10 0RF No Action omeprazole 20 mg capsule,delayed release(DR/EC) 20 mg PO DAILY albuterol sulfate 2.5 mg /3 mL (0.083 %) solution for nebulization 2.5 mg INHALATION Q6H PRN (Reason: shortness of breath or wheezing) Qty: 180 3RF gabapentin 800 mg tablet 800 mg PO Q6H 30 Days Qty: 120 1RF acetaminophen 500 mg capsule 500 mg PO Q4H PRN (Reason: Pain) diphenhydramine HCl [Benadryl] 25 mg capsule 25 mg PO TID PRN (Reason: Allergic Symptoms) indomethacin 50 mg capsule 50 mg PO BID PRN (Reason: Headache) Rx Instructions: administer with food or milk multivitamin Tablet 1 tab PO DAILY cyclobenzaprine 10 mg tablet 20 mg PO BID Emgality Pen 120 mg/mL pen injector SUBCUT .monthly Ubrelvy 50 mg tablet 50 mg PO PRN (DME) ASO See Rx Instructions .Route .MEDSUPPLY Qty: 1 0RF Rx Instructions: As directed ([facility]) blood sugar diagnostic Strip See Rx Instructions .ROUTE .MEDSUPPLY Qty: 200 3RF Rx Instructions: As directed to test blood sugar 1-2 times a day ([facility]) blood-glucose meter [Blood Glucose Monitoring] Kit See Rx Instructions .ROUTE .MEDSUPPLY Qty: 1 0RF Rx Instructions: As directed to test 1-2 time a day ([facility]) lancets 33 gauge misc See Rx Instructions .ROUTE .MEDSUPPLY Qty: 200 3RF Rx Instructions: As directed to test blood sugar 1-2 times a day. Eliquis 5 mg tablet 5 mg PO BID Qty: 180 3RF bupropion HCl [Wellbutrin XL] 300 mg tablet extended release 24 hr 300 mg PO BEDTIME Qty: 30 1RF fluoxetine [Prozac] 40 mg capsule 40 mg PO DAILY Qty: 30 1RF buspirone 15 mg tablet 30 mg PO DAILY Qty: 30 1RF metoprolol succinate 50 mg tablet extended release 24 hr 50 mg PO BID ondansetron 4 mg tablet,disintegrating 4 mg PO Q8H PRN (Reason: nausea and vomiting) Qty: 7 0RF albuterol sulfate 90 mcg/actuation HFA aerosol inhaler 2 inh inhalation Q4H PRN (Reason: shortness of breath or wheezing) Qty: 8.5 0RF ibuprofen 800 mg tablet 800 mg PO TID PRN (Reason: Pain) sertraline 100 mg tablet 200 mg PO BEDTIME nystatin 100,000 unit/gram cream 1 applic topical BID PRN (Reason: Rash) Discharge Orders: Discharge ED (Routine); Ordered 02/06/25 Ordered By: Margie Sutton Referrals: Florian Akers MD [Primary Care Provider, Family Practice] Patient Instructions: Opioid Safety, Pain Management Activity Restrictions/Additional Instructions: Thank you for choosing [facility] for your healthcare needs today. You have been screened and evaluated and felt safe for discharge. Health conditions do change or evolve sometimes and as such it is important that you follow up with your Primary Doctor to be re checked, 3-5 days is a general good time frame for follow up. You are always welcome to return to the ED for re assessment if your symptoms are worsening or you have new concerns Print Language: Irish Coding Level of Care Code ED [employer] for Chelsey Magana
[2025-02-06 19:22] LABS: Basophils % 0.7 %; Eosinophils % 0.5 %; Hematocrit 40.4 % (36-47); Lymphocytes # 1.4 10^3/uL (0.8-4.8); Lymphocytes % 23.5 %; Mean Corpuscular HGB Conc 33.7 g/dL (30-55); Mean Corpuscular Hemoglobin 29.4 pg (27-33); Mean Corpuscular Volume 87.4 fl (85-98); Mean Platelet Volume 10.1 fL (7.4-10.4); Monocytes # 0.5 10^3/uL (0.2-0.9); Monocytes % 8.3 %; Neutrophils # 4.04 10^3/uL (1.8-7.7); Neutrophils % 66.7 %; Nucleated Red Blood Cells % 0 %; Platelet Count 160 10^3/cmm (157-399); Red Blood Count 4.62 10^6/uL (3.85-5.65); Red Cell Distribution Width 12.9 % (12.1-15.1); White Blood Count 6.05 10^3/uL (3.29-11.43)
[2025-02-06] MEDS: ondansetron 2 mg/ML SDV 2 mL 8 MG IVP (19:33)
[2025-02-06] MEDS: HYDROmorphone 0.5 MG/0.5 ML INJ 1 MG IVP (19:35)
[2025-02-06 19:37] LABS: Alanine Aminotransferase 148 U/L (0-33); Alkaline Phosphatase 65 U/L (35-105); Aspartate Amino Transferase 173 U/L (0-32); Blood Urea Nitrogen 11 mg/dL (6-20); Calcium 8.7 mg/dL (8.5-10.5); Carbon Dioxide 20 mmol/L (22-29); Chloride 98 mmol/L (98-107); Creatinine Clr Calc Pharmacy 116.5702; Globulin 2.7 g/dL (1.3-4.6); Glomerular Filtration Rate 88.6 mL/min (90-130); Glucose 146 mg/dL (65-115); Lipase 43 U/L (13-60); Osmolality Calculated 282 mOsm/kg (285-295); Sodium 135 mmol/L (136-145); Total Bilirubin 1.3 mg/dL (0.15-1.2); Total Protein 6.7 g/dL (6.6-8.7)
[2025-02-06 19:38] LABS: Lactic Sepsis W/Reflex 3.3 mmol/L (0.5-2.2)
[2025-02-06 19:39] LABS: Reflex Lactate Order REFLEX LACTIC ORDERD
--- NOTE | 2025-02-06 19:39 | CTR_ITS ---
PROCEDURE INFORMATION: Exam: CT Abdomen And Pelvis With Contrast Exam date and time: 02/06/2025 8:00 PM Age: 49 years old Clinical indication: Abdominal pain; Generalized; Prior surgery; Surgery date: 6+ months; Surgery type: Gb, partial hysterectomy TECHNIQUE: Imaging protocol: Computed tomography of the abdomen and pelvis with contrast. Radiation optimization: All CT scans at this facility use at least one of these dose optimization techniques: automated exposure control; mA and/or kV adjustment per patient size (includes targeted exams where dose is matched to clinical indication); or iterative reconstruction. Contrast material: OMNIPAQUE 350; Contrast volume: 100 ml; Contrast route: INTRAVENOUS (IV); COMPARISON: CT abdomen pelvis w con* [id number] 11/25/2021 03:00 RADIATION DOSE METRICS: Total DLP (mGy-cm): 1354.03 FINDINGS: Lungs: No consolidation in the visualized lung bases. Liver: No hepatomegaly. There are no enhancing liver masses. Gallbladder and biliary ducts: There has been a cholecystectomy. There is no evidence of biliary ductal dilation. Pancreas: Normal in size and homogeneous enhancement. No ductal dilation. Spleen: Normal. No splenomegaly. Adrenal glands: Normal. No mass. Kidneys and ureters: There is no hydronephrosis. No renal or obstructing ureteral calculi. Stomach and bowel: No evidence of small bowel or colonic obstruction. No bowel wall thickening. Appendix: The appendix is not identified. There are no pericecal inflammatory changes. Intraperitoneal space: No free air. No significant fluid collection. Vasculature: There is mild atherosclerotic calcification of the abdominal aorta and its branches without aneurysm.The celiac trunk, SMA and FRANKI are widely patent. Lymph nodes: No enlarged retroperitoneal or mesenteric lymph nodes. Urinary bladder: The bladder shows a normal contour and is free of calcific opacities. Reproductive: There has been a partial hysterectomy. There are simple appearing bilateral ovarian follicles. Bones/joints: No acute fracture. Soft tissues: Normal. CT/CT abdomen pelvis w con* [id number] IMPRESSION: 1. No acute abdominopelvic findings. 2. Prior cholecystectomy and partial hysterectomy. 3. Simple appearing bilateral ovarian follicles as large as 12 mm.
[2025-02-06] MEDS: iohexol 350 mg/mL 500 mL Btl (per mL) IV (20:01)
[2025-02-06 20:06] LABS: Bilirubin Urine 1+ (Negative); Blood Urine Negative (Negative); Glucose Urine UA Negative (Normal); Ketones Urine Trace (Negative); Leukocyte Esterase Urine 2+ (Negative); Nitrate Urine Positive (Negative); Protein Urine Negative (Negative); Specific Gravity, Urine 1.029 (1.005-1.030); Urine Appearance Cloudy (CLEAR); pH Urine 5.5 (5-7)
[2025-02-06 20:08] LABS: Bacteria Urine EXCEEDS /hpf; Hyaline Casts Urine 1.21 /lpf; Squamous Epithelial Cell Urine 0-5 /hpf (0-5); WBC Urine >100 /hpf (0-5)
[2025-02-06 20:21] LABS: UA Slide Review UA Slide Review Perf; Urine Color Orange (Yellow)
[2025-02-06 20:22] LABS: Add Urine Culture? Yes
[2025-02-06 21:00] VITALS: BP 134/85; PULSE 80; O2SAT 96
[2025-02-06] MEDS: sodium chloride 0.9% 1,000 ML 999 ML IV (21:07)
[2025-02-06] MEDS: cefepime 2,000 mg SDV 2000 MG IVP (21:12)
[2025-02-06 21:30] VITALS: BP 113/95; PULSE 88; O2SAT 95
[2025-02-06] MEDS: HYDROcodone-acetaminophen 5-325 mg Tablet 2 TAB PO (22:26)
[2025-02-06 22:30] VITALS: BP 120/77; PULSE 76; O2SAT 97
[2025-02-06] MEDS: ondansetron 4 MG Tablet PO (22:52)
[2025-02-06 23:04] VITALS: BP 122/84; PULSE 86; O2SAT 98
== END 2025-02-06 23:05 | disposition home or self-care (01) ==
PROVIDERS: Emergency Provider Emergency Medicine; PCP Family Medicine
DX: N39.0 Urinary tract infection, site not specified (principal); Z79.01 Long term (current) use of anticoagulants
CPT/HCPCS: 36415; 74177; 80053; 81001; 83605; 83690; 85025; 86140; 87040; 87077; 87086; 87186; 96374; 96375; 99285; J0692; J1171; J2405; J7030; J9999; Q0162

== ENCOUNTER 2025-02-08 10:40 | Emergency (ER) | payer MEDICARE, SELFPAY ==
[2025-02-08 10:42] VITALS: BP 139/65; PULSE 86; RESP 16; TEMP 36.8; O2SAT 98; BMI 44.2
--- NOTE | 2025-02-08 10:47 | W.ED.ABDPA2 ---
HPI - Abdominal Pain General: Chief Complaint: Abdominal Pain Stated Complaint: AB PAIN Time Seen by Provider: 02/08/25 10:42 Source: patient and EMS Mode of arrival: EMS Limitations: no limitations History of Present Illness: 49-year-old female has a history of chronic pain she was seen here 2 days ago for abdominal pain abnormal CT scan was diagnosed with UTI states she has been having worsening pain states her pain is diffuse in her abdomen rates an 8 out of 10 denies any vomiting or diarrhea denies any fevers. Denies any chest pain. Denies any worse or improving factors Associated Symptoms: Reports nausea; Denies chills, diarrhea, dysuria, fever(s) and vomiting Related Data Home Medications ?Medication ?Instructions ?Recorded ?Confirmed acetaminophen 500 mg capsule 500 mg PO Q4H PRN Pain 09/05/19 02/08/25 omeprazole 20 mg capsule,delayed 20 mg PO DAILY 03/05/20 02/08/25 release metoprolol succinate 50 mg 50 mg PO BID 11/25/21 02/08/25 tablet,extended release 24 hr indomethacin 50 mg capsule 50 mg PO BID PRN Headache 12/04/21 02/08/25 multivitamin 1 tab PO DAILY 02/05/22 02/08/25 cyclobenzaprine 10 mg tablet 20 mg PO BID muscle spasm 01/19/24 02/08/25 galcanezumab-gnlm 120 mg/mL 120 mg SUBCUT .monthly 01/19/24 02/08/25 subcutaneous pen injector (Emgality Pen) ubrogepant 100 mg tablet (Ubrelvy) 100 mg PO DAILY PRN Headache 02/08/25 02/08/25 Previous Rx's ?Medication ?Instructions ?Recorded blood sugar diagnostic #200 ea 10/19/20 blood-glucose meter (Blood Glucose #1 ea 10/19/20 Monitoring kit) lancets 33 gauge #200 ea 10/19/20 gabapentin 800 mg tablet 800 mg PO Q6H 30 days #120 tabs 06/12/21 apixaban 5 mg tablet (Eliquis) 5 mg PO BID #180 tabs 02/01/24 ASO #1 ea 07/19/24 bupropion HCl 300 mg 24 hr tablet, 300 mg PO BEDTIME #30 tabs 01/12/25 extended release (Wellbutrin XL) fluoxetine 40 mg capsule (Prozac) 40 mg PO DAILY #30 caps 02/03/25 buspirone 15 mg tablet 30 mg (2 x 15 mg) PO DAILY anxiety 02/06/25 #30 tabs cefdinir 300 mg capsule 300 mg PO BID 10 days #20 caps 02/06/25 ondansetron 4 mg disintegrating 4 mg PO Q8H PRN nausea and 02/06/25 tablet vomiting #10 tabs ondansetron 4 mg disintegrating 4 mg PO Q6H PRN nausea and 02/08/25 tablet vomiting #14 tabs Allergies Allergy/AdvReac Type Severity Reaction Status Date / Time metoclopramide (From Reglan) AdvReac shortness Verified 02/06/25 19:12 of breath promethazine (From Phenergan) AdvReac shortness Verified 02/06/25 19:12 of breath Review of Systems Const: Denies: fever(s), chills, body aches or change in appetite ENMT: Denies: throat pain or dental pain Card: Denies: chest pain Resp: Denies: dyspnea GI: Reports: abdominal pain and nausea; Denies: vomiting or diarrhea : Denies: dysuria Musc: Denies: neck pain or back pain Skin/Breast: Denies: rash Neuro: Denies: headache(s) PFSH ED PFSH: Medical History Psychiatric care Tachycardia States is on medication to control heart rate managed by PMD. Does not have a entry level marketing representative. Asthma Diagnosed in 2019 after COVID. 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 No pertinent past medical history Denies diabetes, asthma, hypertension, seizures, DVT PCP:Dr. Akers Chronic neck and back pain Pulmonary embolism x 2 2015---had a pulmonary embolism during usage of NuvaRing and was on blood thinners for 6 months. May 2020--had 2 PEs when she had COVID ---> Has been on Eliquis since 2019 managed by PMD. Juvencio-Danlos syndrome Type III per patient---causes chronic neck pain and she sees pain management. Chiari malformation Chronic migraine Reports migraines with aura's-follows up with a neurologist Dr. Haines Major depressive disorder, recurrent, moderate Surgical History Status post hysterectomy 03/04/2022---robot-assisted laparoscopic total hysterectomy and bilateral salpingectomy by Dr. Natividad Bobo in [facility]. Pathology showed endometriosis but was otherwise benign. ---> Operative reports have been scanned History of throat surgery Vocal cord 12/28/20 [place]--Dilation and removal of vocal cord Status post surgery X 2 2020--Vocal cord reconstructive surgery performed in [facility] in [place] after damage to vocal cords with prolonged intubation. History of foot surgery December 2020--surgically repaired no fracture unburied fluid. S/P section 2007 [place] teeth extracted S/P cholecystectomy 02/09/2019---laparoscopic procedure S/P carpal tunnel release 2009--right-sided Family History Father Hypertension Grandmother Diabetes maternal and paternal Denies family history of Colon cancer Ovarian cancer Heart disease Hyperlipidemia Breast cancer Uterine cancer Thyroid disease Stroke Social History Smoking and tobacco/nicotine status: never used tobacco/nicotine Substance/Drug Use: never Do you think of yourself as: Straight/Heterosexual Physical Exam Const: COMMON NORMALS: no acute distress, patient oriented x3 and healthy appearing HENMT: COMMON NORMALS: normocephalic and atraumatic HEAD & SCALP: normocephalic and atraumatic Eye: COMMON NORMALS: conjunctivae normal CONJUNCTIVA: Yes conjunctivae normal Neck/C-Spine: COMMON NORMALS: full ROM and supple Chest: COMMONS NORMALS: normal inspection of the chest Resp: COMMON NORMALS: normal respiratory effort, No retractions, No use of accessory muscles and clear to auscultation bilaterally AUSCULTATION: clear to auscultation bilaterally Cardio: COMMON NORMALS: regular rate, regular rhythm and No murmurs present (Cardio) RATE: regular rate RHYTHM: regular rhythm GI: COMMON NORMALS: Normal to inspection, nondistended, normoactive bowel sounds present, Soft to palpation and no masses PALPATION: Yes Soft to palpation OTHER: diffuse mild tenderness Extremity: COMMON NORMALS: normal to inspection and full ROM Neuro: COMMON NORMALS: patient oriented x3, moves all extremities and no focal motor deficits Psych: COMMON NORMALS: mental status grossly normal, Normal thought process present and cooperative THOUGHT PROCESS: Normal thought process present Skin: COMMON NORMALS: no rashes or lesions noted and no wounds GENERAL SKIN EXAM: no rashes or lesions noted Course Vital Signs: Vital signs: Vital Signs Temperature 98.2 F 02/08/25 10:42 Pulse Rate 88 02/08/25 13:06 Respiratory Rate 18 02/08/25 12:07 Blood Pressure 143/76 02/08/25 13:06 Pulse Oximetry 93 02/08/25 13:06 Oxygen Delivery Me thod Room Air 02/08/25 12:07 MDM - Abdominal Pain Medical Decision Making Patient presents here with abdominal pain and vomiting she had a normal CT scan few days ago blood works normal again her pain is improved will prescribe her more Zofran she is follow-up with PCP return if worsening. Medical Records I reviewed the patient's medical records. Lab Data I reviewed the patient's lab results. 02/08/25 11:12 02/08/25 11:12 Labs/Radiology: Laboratory Results WBC 6.09 10^3/uL (3.29-11.43) 02/08/25 11:12 RBC 4.32 10^6/uL (3.85-5.65) 02/08/25 11:12 Hgb 12.90 g/dL (11.27-16.99) 02/08/25 11:12 Hct 37.7 % (36-47) 02/08/25 11:12 MCV 87.3 fl (85-98) 02/08/25 11:12 MCH 29.9 pg (27-33) 02/08/25 11:12 MCHC 34.2 g/dL (30-55) 02/08/25 11:12 RDW 13.0 % (12.1-15.1) 02/08/25 11:12 Plt Count 155 10^3/cmm (157-399) L 02/08/25 11:12 MPV 9.9 fL (7.4-10.4) 02/08/25 11:12 Neut % (Auto) 66.9 % 02/08/25 11:12 Lymph % (Auto) 24.5 % 02/08/25 11:12 [place] % (Auto) 6.9 % 02/08/25 11:12 Eos % (Auto) 0.8 % 02/08/25 11:12 Baso % (Auto) 0.7 % 02/08/25 11:12 Neut # (Auto) 4.08 10^3/uL (1.8-7.7) 02/08/25 11:12 Lymph # (Auto) 1.5 10^3/uL (0.8-4.8) 02/08/25 11:12 [place] # (Auto) 0.4 10^3/uL (0.2-0.9) 02/08/25 11:12 Eos # (Auto) 0.1 10^3/uL (0.0-0.8) 02/08/25 11:12 Baso # (Auto) 0.0 10^3/uL (0.0-0.1) 02/08/25 11:12 Nucleated RBC % (auto) 0 % 02/08/25 11:12 Nucleated RBCs # 0.0 /100WBC 02/08/25 11:12 Sodium 136 mmol/L (136-145) 02/08/25 11:12 Potassium 3.4 mmol/L (3.5-5.1) L 02/08/25 11:12 Chloride 100 mmol/L (98-107) 02/08/25 11:12 Carbon Dioxide 22 mmol/L (22-29) 02/08/25 11:12 Anion Gap 17.4 (5-19) 02/08/25 11:12 BUN 8 mg/dL (6-20) 02/08/25 11:12 Creatinine 0.7 mg/dL (0.5-0.9) 02/08/25 11:12 GFR Calculation 88.6 mL/min (90-130) L 02/08/25 11:12 Glucose 129 mg/dL (65-115) H 02/08/25 11:12 Calculated Osmolality 282 mOsm/kg (285-295) L 02/08/25 11:12 Calcium 8.7 mg/dL (8.5-10.5) 02/08/25 11:12 Total Bilirubin 0.8 mg/dL (0.15-1.2) 02/08/25 11:12 AST 94 U/L (0-32) H 02/08/25 11:12 ALT 164 U/L (0-33) H 02/08/25 11:12 Alkaline Phosphatase 77 U/L (35-105) 02/08/25 11:12 Total Protein 6.6 g/dL (6.6-8.7) 02/08/25 11:12 Albumin 3.9 g/dL (3.5-5.2) 02/08/25 11:12 Globulin 2.7 g/dL (1.3-4.6) 02/08/25 11:12 Lipase 37 U/L (13-60) 02/08/25 11:12 Urine Color [place] (Yellow) A 02/08/25 11:34 Urine Appearance Clear (CLEAR) 02/08/25 11:34 Urine pH 5.5 (5-7) 02/08/25 11:34 Ur Specific [place] 1.027 (1.005-1.030) 02/08/25 11:34 Urine Protein Trace (Negative) A 02/08/25 11:34 Urine Glucose (UA) Negative (Normal) 02/08/25 11:34 Urine Ketones 1+ (Negative) H 02/08/25 11:34 Urine Blood Negative (Negative) 02/08/25 11:34 Urine Nitrate Negative (Negative) 02/08/25 11:34 Urine Bilirubin 1+ (Negative) H 02/08/25 11:34 Urine Urobilinogen 1.0 mg/dL (Negative) 02/08/25 11:34 Ur Leukocyte Esterase Negative (Negative) 02/08/25 11:34 Urine RBC 3-5 /hpf (0-2) 02/08/25 11:34 Urine WBC 0-5 /hpf (0-5) 02/08/25 11:34 Ur Squamous Epith Cells 0-5 /hpf (0-5) 02/08/25 11:34 Amorphous Sediment Not Reportable 02/08/25 11:34 Urine Bacteria None seen /hpf (NONE) 02/08/25 11:34 Hyaline Casts 6.61 /lpf 02/08/25 11:34 No radiology studies performed this visit Discharge Plan Discharge Patient Disposition: Home Clinical Impression: Abdominal pain Condition: Stable Prescriptions: New ondansetron 4 mg tablet,disintegrating 4 mg PO Q6H PRN (Reason: nausea and vomiting) Qty: 14 0RF No Action omeprazole 20 mg capsule,delayed release(DR/EC) 20 mg PO DAILY gabapentin 800 mg tablet 800 mg PO Q6H 30 Days Qty: 120 1RF acetaminophen 500 mg capsule 500 mg PO Q4H PRN (Reason: Pain) indomethacin 50 mg capsule 50 mg PO BID PRN (Reason: Headache) Rx Instructions: administer with food or milk multivitamin Tablet 1 tab PO DAILY cyclobenzaprine 10 mg tablet 20 mg PO BID Emgality Pen 120 mg/mL pen injector 120 mg SUBCUT .monthly (DME) ASO See Rx Instructions .Route .MEDSUPPLY Qty: 1 0RF Rx Instructions: As directed (DME) blood sugar diagnostic Strip See Rx Instructions .ROUTE .MEDSUPPLY Qty: 200 3RF Rx Instructions: As directed to test blood sugar 1-2 times a day (DME) blood-glucose meter [Blood Glucose Monitoring] Kit See Rx Instructions .ROUTE .MEDSUPPLY Qty: 1 0RF Rx Instructions: As directed to test 1-2 time a day (DME) lancets 33 gauge misc See Rx Instructions .ROUTE .MEDSUPPLY Qty: 200 3RF Rx Instructions: As directed to test blood sugar 1-2 times a day. Eliquis 5 mg tablet 5 mg PO BID Qty: 180 3RF bupropion HCl [Wellbutrin XL] 300 mg tablet extended release 24 hr 300 mg PO BEDTIME Qty: 30 1RF fluoxetine [Prozac] 40 mg capsule 40 mg PO DAILY Qty: 30 1RF buspirone 15 mg tablet 30 mg PO DAILY Qty: 30 1RF cefdinir 300 mg capsule 300 mg PO BID 10 Days Qty: 20 0RF ondansetron 4 mg tablet,disintegrating 4 mg PO Q8H PRN (Reason: nausea and vomiting) Qty: 10 0RF metoprolol succinate 50 mg tablet extended release 24 hr 50 mg PO BID Ubrelvy 100 mg tablet 100 mg PO DAILY PRN (Reason: Headache) Discharge Orders: Discharge ED (Routine); Ordered 02/08/25 Ordered By: Raimundo Menjivar Referrals: Florian Akers MD [Primary Care Provider, Family Practice] - 4-7 days Discharge Diet: Advance as tolerated Discharge Activity: Resume usual activity Patient Instructions: Abdominal Pain (ED) Print Language: Nepali Coding Level of Care Code ED 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
[2025-02-08 11:16] VITALS: BP 116/96; PULSE 84; RESP 20; O2SAT 95
[2025-02-08] MEDS: ondansetron 2 mg/ML SDV 2 mL 4 MG IVP (11:16)
[2025-02-08] MEDS: morphine 4 mg/mL SDV 1 mL IVP (11:16)
[2025-02-08 11:19] LABS: Basophils % 0.7 %; Eosinophils # 0.1 10^3/uL (0.0-0.8); Eosinophils % 0.8 %; Hematocrit 37.7 % (36-47); Lymphocytes # 1.5 10^3/uL (0.8-4.8); Lymphocytes % 24.5 %; Mean Corpuscular HGB Conc 34.2 g/dL (30-55); Mean Corpuscular Hemoglobin 29.9 pg (27-33); Mean Corpuscular Volume 87.3 fl (85-98); Mean Platelet Volume 9.9 fL (7.4-10.4); Monocytes # 0.4 10^3/uL (0.2-0.9); Monocytes % 6.9 %; Neutrophils # 4.08 10^3/uL (1.8-7.7); Neutrophils % 66.9 %; Nucleated Red Blood Cells % 0 %; Platelet Count 155 10^3/cmm (157-399); Red Blood Count 4.32 10^6/uL (3.85-5.65); White Blood Count 6.09 10^3/uL (3.29-11.43)
[2025-02-08 11:35] LABS: Alanine Aminotransferase 164 U/L (0-33); Albumin Level 3.9 g/dL (3.5-5.2); Alkaline Phosphatase 77 U/L (35-105); Anion Gap 17.4 (5-19); Aspartate Amino Transferase 94 U/L (0-32); Blood Urea Nitrogen 8 mg/dL (6-20); Calcium 8.7 mg/dL (8.5-10.5); Carbon Dioxide 22 mmol/L (22-29); Chloride 100 mmol/L (98-107); Creatinine Clr Calc Pharmacy 116.5702; Globulin 2.7 g/dL (1.3-4.6); Glomerular Filtration Rate 88.6 mL/min (90-130); Glucose 129 mg/dL (65-115); Lipase 37 U/L (13-60); Osmolality Calculated 282 mOsm/kg (285-295); Potassium 3.4 mmol/L (3.5-5.1); Sodium 136 mmol/L (136-145); Total Bilirubin 0.8 mg/dL (0.15-1.2); Total Protein 6.6 g/dL (6.6-8.7)
[2025-02-08 12:02] LABS: Bilirubin Urine 1+ (Negative); Blood Urine Negative (Negative); Glucose Urine UA Negative (Normal); Ketones Urine 1+ (Negative); Leukocyte Esterase Urine Negative (Negative); Nitrate Urine Negative (Negative); Protein Urine Trace (Negative); Specific Gravity, Urine 1.027 (1.005-1.030); Urine Appearance Clear (CLEAR); pH Urine 5.5 (5-7)
[2025-02-08 12:07] VITALS: BP 134/70; PULSE 88; RESP 18; O2SAT 94
[2025-02-08 12:07] LABS: Add Urine Microscopic? YES; Bacteria Urine None Seen /hpf; Hyaline Casts Urine 6.61 /lpf; Squamous Epithelial Cell Urine 0-5 /hpf (0-5); WBC Urine 0-5 /hpf (0-5)
[2025-02-08 12:13] LABS: UA Slide Review UA Slide Review Perf; Urine Color Orange (Yellow)
[2025-02-08 13:06] VITALS: BP 143/76; PULSE 88; O2SAT 93
[2025-02-08] MEDS: HYDROcodone-acetaminophen 5-325 mg Tablet 1 TAB PO (13:12)
== END 2025-02-08 13:34 | disposition home or self-care (01) ==
PROVIDERS: Emergency Provider Emergency Medicine; PCP Family Medicine
DX: R10.9 Unspecified abdominal pain (principal); Z79.01 Long term (current) use of anticoagulants
CPT/HCPCS: 80053; 81001; 83690; 85025; 96374; 96375; 99284; J2270; J2405; J9999

== ENCOUNTER → 2025-04-14 10:09 | Outpatient (BNVA) | payer MEDICARE, SELFPAY | PROVIDERS: PCP Family Medicine; Visit Provider Nurse Practitioner Family | DX: L71.8 Other rosacea (principal); L72.0 Epidermal cyst; L57.8 Other skin changes due to chronic exposure to nonionizing radiation; D23.72 Other benign neoplasm of skin of left lower limb, including hip; Z08 Encounter for follow-up examination after completed treatment for malignant neoplasm; Z85.820 Personal history of malignant melanoma of skin; L57.0 Actinic keratosis | CPT/HCPCS: 17000; 99213 ==